=== PATIENT | male | born 1950 | race Caucasian/White ===

== ENCOUNTER 2016-12-07 09:59 | Emergency (ER) | payer MEDICARE, OTHER ==
--- NOTE | 2016-12-07 11:09 | RAD ---
Indication: Right calf pain. Duplex Doppler sonography of the deep venous system of the right lower extremity deep venous system was performed. Bilaterally the common femoral veins appear patent and compressible. Right proximal greater saphenous vein, proximal deep femoral vein, femoral vein, popliteal vein, posterior tibial veins and peroneal veins appear patent and compressible. IMPRESSION: NO EVIDENCE OF DEEP VENOUS THROMBOSIS IS IDENTIFIED.
[2016-12-07 11:21] VITALS: BP 124/71
--- NOTE | 2016-12-07 12:01 | ED ---
Lower Extremity - HPI Summary HPI Summary: Patient presents with right calf pain for two days. He got up from his chair two days ago and felt pain in his right calf. The pain improved somewhat yesterday, but he has a history of PE and worried he might have a blood clot. He does not have swelling or redness in the calf. No CP or SOB. - History of Current Complaint Chief Complaint: EDExtremityLower Stated Complaint: POSS BLOOD CLOT IN RT LEG Hx Obtained From: Patient Mechanism Of Injury: Unknown Onset of Pain: Immediate Onset/Duration: Days - 2 Severity Initially: Severe Severity Currently: Mild Pain Intensity: 0 Pain Scale Used: 0-10 Numeric Timing: Constant Location: Is Discrete @ - right upper calf Character Of Pain: Dull, Aching Associated Signs And Symptoms: Positive: Negative Aggravating Factor(s): Movement Alleviating Factor(s): Rest Able to Bear Weight: Yes - Allergies/Home Medications Allergies/Adverse Reactions: Allergies Allergy/AdvReac Type Severity Reaction Status Date / Time Simvastatin [From Zocor] Allergy Severe muscle Verified 12/07/16 10:04 aches Molds & Smuts Allergy Unknown Verified 12/07/16 10:04 Reaction Details PMH/Surg Hx/FS Hx/Imm Hx Endocrine/Hematology History: Denies: Hx Diabetes, Hx Thyroid Disease Comment Only: Hx Anticoagulant Therapy - 325 mg asa bedtime, 81mg asa am Cardiovascular History: Reports: Hx Hypercholesterolemia, Hx Hypertension Denies: Hx Pacemaker/ICD Respiratory History: Reports: Hx Asthma, Hx Pulmonary Embolism - Aug 2015, Hx Sleep Apnea, Other Respiratory Problems/Disorders - LT PLEURAL EFFUSION 07/2015/ TUBE PLACEMENT GI History: Reports: Hx Gastroesophageal Reflux Disease History: Reports: Hx Renal Disease - CYST, RT KIDNEY, Other Problems/ Disorders - cyst right kidney, prostate CA Musculoskeletal History: Reports: Hx Arthritis Sensory History: Reports: Hx Contacts or Glasses, Hx Vision Problem - near sighted, Hx Hearing Aid, Hx Hearing Problem Opthamlomology History: Reports: Hx Contacts or Glasses, Hx Vision Problem - near sighted Psychiatric History: Denies: Hx Substance Abuse - Cancer History Cancer Type, Location and Year: prostate - Surgical History Surgery Procedure, Year, and Place: Prostatectomy, 2000, . Deviated Spetum Repair. Lymph Node Removed from Left Neck. Hernia Repair. Acid Reflux Repair , SURGERY FOR PERFORATED STOMACH 2014 Hx Anesthesia Reactions: No - Immunization History Date of Tetanus Vaccine: 2011 Date of Influenza Vaccine: 2011 Infectious Disease History: No Infectious Disease History: Reports: Hx Hepatitis - Hepatitis B, Hx Shingles Denies: Traveled Outside the [place] in Last 30 Days - Family History Known Family History: Positive: Unknown - Social History Occupation: Retired Lives: With Family Alcohol Use: None Substance Use Type: Reports: None Hx Tobacco Use: No Smoking Status (MU): Former Smoker Type: Cigarettes Have You Smoked in the Last Year: Yes Review of Systems Negative: Chest Pain Negative: Shortness Of Breath Positive: Myalgia. Negative: Decreased ROM, Edema Negative: Bruising All Other Systems Reviewed And Are Negative: Yes Physical Exam Triage Information Reviewed: Yes Vital Signs On Initial Exam: Initial Vitals Temp Pulse Resp BP Pulse Ox 98.1 F 75 17 146/86 100 12/07/16 10:01 12/07/16 10:01 12/07/16 10:01 12/07/16 10:01 12/07/16 10:01 Vital Signs Reviewed: Yes Appearance: Positive: Well-Appearing, No Pain Distress, Well-Nourished Skin: Positive: Warm, Skin Color Reflects Adequate Perfusion, Dry, Soft Head/Face: Positive: Normal Head/Face Inspection Eyes: Positive: EOMI, MIGUEL, Conjunctiva Clear ENT: Positive: Hearing grossly normal Respiratory/Lung Sounds: Positive: Clear to Auscultation, Breath Sounds Present Cardiovascular: Positive: RRR Musculoskeletal: Positive: Strength/ROM Intact, Pain @ - mildly TTP right mid upper calf without enduration, erythema or warmth. Negative: Edema Left, Edema Right Neurological: Positive: Sensory/Motor Intact, Alert, Oriented to Person Place, Time, [place] Bundle Intact Distally Psychiatric: Positive: Affect/Mood Appropriate AVPU Assessment: Alert - [place] Coma Scale Coma Scale Total: 15 Diagnostics - Vital Signs Vital Signs Temp Pulse Resp BP Pulse Ox 12/07/16 11:00 60 18 124/71 96 12/07/16 10:33 64 18 96 12/07/16 10:32 140/77 12/07/16 10:01 98.1 F 75 17 146/86 100 - Laboratory Lab Statement: Any lab studies that have been ordered have been reviewed, and results considered in the medical decision making process. - Ultrasound No standard instances Ultrasound Interpretation: No Acute Changes Ultrasound Interpretation Completed By: Radiologist Lower Extremity Course/Dx - Diagnoses Differential Diagnosis/HQI/PQRI: Positive: Arthritis, Bursitis, Cellulitis, Compartment Syndrome, Contusion, DVT, Gout, Sprain, Strain Provider Diagnoses: Strain of calf muscle Discharge - Discharge Plan Condition: Stable Disposition: HOME Patient Education Materials: Muscle Strain (ED) Referrals: Pascual Moyer MD [Primary Care Provider] - Additional Instructions: Please rest and only increase your activities slowly. If you have pain, you should back off of that activity. You can use Tylenol and heat to help with pain. Follow-up with your primary care provider if your symptoms persist or return to the emergency department if your symptoms worsen.
== END 2016-12-07 11:28 | disposition home or self-care (01) ==
LOC: ED 09:59
DX: S86.911A Strain of unspecified muscle(s) and tendon(s) at lower leg level, right leg, initial encounter (principal); X58.XXXA Exposure to other specified factors, initial encounter; Y93.9 Activity, unspecified; Y92.9 Unspecified place or not applicable; Y99.9 Unspecified external cause status
CPT/HCPCS: 99283

== ENCOUNTER 2017-01-29 00:29 | Emergency (ER) | payer MEDICARE, OTHER ==
[2017-01-29] MEDS ORDERED: Albuterol/Ipratropium NEB.SOL* Albuterol 2.5 MG/Ipratropium 0.5 MG 3 ML INH ONE (01:16)
--- NOTE | 2017-01-29 01:40 | ED ---
Kandi Zimmerman Erika, scribed for Barry Hussein MD on 01/29/17 at 0135 . Asthma - HPI Summary HPI Summary: Patient is a 66-year-old male presenting to the ED with a CC of SOB. Patient reports that he has been feeling SOB and chest tightness all day. He states symptoms worsened at 23:00, so he used a nebulizer treatment, which partially alleviated symptoms. Patient states he was not coughing earlier today but did start coughing since arrival to the ED. Patient denies fever. He states that he recently switched to Breo from Advair recently. He reports the most recent asthma attack that led to him coming to the ED was last year. Pt is followed by Dr. Baez for his asthma. - History of Current Complaint Chief Complaint: EDAsthma Stated Complaint: SOB Time Seen by Provider: 01/29/17 01:08 Hx Obtained From: Patient Onset/Duration: Gradual Onset, Lasting Hours, Still Present, Worse Since - 23:00 Timing: Constant Initial Severity: Mild Current Severity: Moderate Pain Intensity: 3 Pain Scale Used: 0-10 Numeric Alleviating Symptoms: Inhalers/Nebulizers - Allergy/Home Medications Allergies/Adverse Reactions: Allergies Allergy/AdvReac Type Severity Reaction Status Date / Time Simvastatin [From Zocor] Allergy Severe muscle Verified 12/07/16 10:04 aches Molds & Smuts Allergy Unknown Verified 12/07/16 10:04 Reaction Details PMH/Surg Hx/FS Hx/Imm Hx Endocrine/Hematology History: Denies: Hx Diabetes, Hx Thyroid Disease Comment Only: Hx Anticoagulant Therapy - 325 mg asa bedtime, 81mg asa am Cardiovascular History: Reports: Hx Hypercholesterolemia, Hx Hypertension Denies: Hx Pacemaker/ICD Respiratory History: Reports: Hx Asthma, Hx Pulmonary Embolism - Aug 2015, Hx Sleep Apnea, Other Respiratory Problems/Disorders - LT PLEURAL EFFUSION 07/2015/ TUBE PLACEMENT GI History: Reports: Hx Gastroesophageal Reflux Disease History: Reports: Hx Renal Disease - CYST, RT KIDNEY, Other Problems/ Disorders - cyst right kidney, prostate CA Musculoskeletal History: Reports: Hx Arthritis Sensory History: Reports: Hx Contacts or Glasses, Hx Vision Problem - near sighted, Hx Hearing Aid, Hx Hearing Problem Opthamlomology History: Reports: Hx Contacts or Glasses, Hx Vision Problem - near sighted Psychiatric History: Denies: Hx Substance Abuse - Cancer History Cancer Type, Location and Year: prostate - Surgical History Surgery Procedure, Year, and Place: Prostatectomy, 2000, [facility]. Deviated Spetum Repair. Lymph Node Removed from Left Neck. Hernia Repair. Acid Reflux Repair , SURGERY FOR PERFORATED STOMACH 2014 Hx Anesthesia Reactions: No - Immunization History Date of Tetanus Vaccine: 2011 Date of Influenza Vaccine: 2011 Infectious Disease History: No Infectious Disease History: Reports: Hx Hepatitis - Hepatitis B, Hx Shingles Denies: Traveled Outside the [place] in Last 30 Days - Family History Known Family History: Positive: Cardiac Disease, Other - Brain CA - Social History Occupation: Employed Full-time Alcohol Use: None Hx Substance Use: No Substance Use Type: Reports: None Review of Systems Negative: Fever Cardiovascular: Other - chest tightness Positive: Shortness Of Breath, Cough All Other Systems Reviewed And Are Negative: Yes Physical Exam Triage Information Reviewed: Yes Vital Signs On Initial Exam: Initial Vitals Temp Pulse Resp BP Pulse Ox 97.8 F 62 18 148/80 100 01/29/17 00:37 01/29/17 00:37 01/29/17 00:37 01/29/17 00:37 01/29/17 00:37 Vital Signs Reviewed: Yes Appearance: Positive: Well-Appearing, No Pain Distress Skin: Positive: Warm Head/Face: Positive: Normal Head/Face Inspection Eyes: Positive: MIGUEL ENT: Positive: Hearing grossly normal Neck: Positive: Supple Respiratory/Lung Sounds: Positive: Wheezes - few scattered exp wheezes Cardiovascular: Positive: RRR Abdomen Description: Positive: Nontender, Soft Bowel Sounds: Positive: Present Musculoskeletal: Positive: Strength/ROM Intact Neurological: Positive: Sensory/Motor Intact, Alert, Oriented to Person Place, Time Psychiatric: Positive: Affect/Mood Appropriate - [place] Coma Scale Coma Scale Total: 15 Diagnostics - Vital Signs Vital Signs Temp Pulse Resp BP Pulse Ox 01/29/17 00:37 97.8 F 62 18 148/80 100 - Laboratory Lab Statement: Any lab studies that have been ordered have been reviewed, and results considered in the medical decision making process. Asthma Course/Dx - Course Assessment/Plan: A 66 y/o M presents to the ED with a CC of SOB. Patient has a diagnosis of asthma. Lung sounds are good on exam. Patient is given a duoneb and is discharged home with follow up from pulmonology. - Diagnoses Provider Diagnoses: Asthma Discharge - Discharge Plan Condition: Stable Disposition: HOME Patient Education Materials: Asthma (ED) Referrals: Pascual Moyer MD [Primary Care Provider] - Ariane Lopez MD [Medical Doctor] - Additional Instructions: Please follow up with pulmonology. The documentation as recorded by the Kandi barbosa Erika accurately reflects the service I personally performed and the decisions made by me, Barry Hussein MD.
[2017-01-29 01:52] VITALS: BP 129/68
== END 2017-01-29 01:46 | disposition home or self-care (01) ==
LOC: ED 00:29
DX: J45.909 Unspecified asthma, uncomplicated (principal); R06.02 Shortness of breath
CPT/HCPCS: 94640; 94760; 99282; A9270-GY

== ENCOUNTER 2017-11-26 14:39 | Emergency (ER) | payer MEDICARE, OTHER ==
--- NOTE | 2017-11-26 16:56 | RAD ---
INDICATION: Pain and swelling. COMPARISON: September 05, 2015 TECHNIQUE: Duplex interrogation of the Lowerextremity was performed. FINDINGS: Deep veins: The common femoral, great saphenous, profunda femoris, proximal, mid, and distal deep femoral, popliteal, posterior tibial, and peroneal veins are patent. There is normal compressibility, augmentation, and phasic flow. Superficial veins: There are no findings of superficial thrombophlebitis. Popliteal fossa:There is no evidence of a popliteal cyst. Soft tissues:There are no soft tissue abnormalities. IMPRESSION: Normal examination. No evidence of deep venous thrombosis
--- NOTE | 2017-11-26 17:13 | ED ---
Lower Extremity - HPI Summary HPI Summary: Patient presents with chief complaint of a "funny feeling" in the left posterior upper leg. He was sent here by urgent care to rule out blood clot. History of PE 2 years ago which was spontaneous. He denies any travel, denies smoking. Recently diagnosed with pneumonia last week and has been completing his course of antibiotics. He states this week from being ill he has been sitting more recently and feels it may just be a muscle strain. Denies any numbness or tingling. Denies any erythema or warmth to the area. Denies calf pain. He is ambulating well. Denies any other complaints at this time. He is currently not on blood thinners and is unable to take ibuprofen or aspirin due to his medical history.Past medical history includes hypertension, asthma, pleural effusion and patient takes lisinopril 40 mg daily. Described as aching , 2 out of 10 and worse with sitting. Alleviated with standing. Pneumonia symptoms have improved and he denies any chest discomfort or chest pain worse with inspiration. - History of Current Complaint Chief Complaint: EDExtremityLower Stated Complaint: POSS BLOOD CLOT LT LOWER EXTREMITY Time Seen by Provider: 11/26/17 15:51 Hx Obtained From: Patient Onset of Pain: Immediate Onset/Duration: Hours Severity Initially: Mild Severity Currently: Mild Pain Intensity: 1 Pain Scale Used: 0-10 Numeric Timing: Constant Location: Is Discrete @ - Left upper posterior leg Character Of Pain: Aching Aggravating Factor(s): Other - Sitting - Risk Factors Gout Risk Factors: Negative DVT Risk Factors: Negative Septic Arthritis Risk Factor: Negative - Allergies/Home Medications Allergies/Adverse Reactions: Allergies Allergy/AdvReac Type Severity Reaction Status Date / Time Simvastatin [From Zocor] Allergy Severe muscle Verified 09/03/17 12:16 aches Molds & Smuts Allergy Unknown Verified 09/03/17 12:16 Reaction Details PMH/Surg Hx/FS Hx/Imm Hx Previously Healthy: Yes Endocrine/Hematology History: Denies: Hx Diabetes, Hx Thyroid Disease Comment Only: Hx Anticoagulant Therapy - 325 mg asa bedtime, 81mg asa am Cardiovascular History: Reports: Hx Hypercholesterolemia, Hx Hypertension Denies: Hx Pacemaker/ICD Respiratory History: Reports: Hx Asthma, Hx Pulmonary Embolism - Aug 2015, Hx Sleep Apnea, Other Respiratory Problems/Disorders - LT PLEURAL EFFUSION 07/2015/ TUBE PLACEMENT GI History: Reports: Hx Gastroesophageal Reflux Disease History: Reports: Hx Renal Disease - CYST, RT KIDNEY, Other Problems/ Disorders - cyst right kidney, prostate CA Musculoskeletal History: Reports: Hx Arthritis Sensory History: Reports: Hx Contacts or Glasses, Hx Vision Problem - near sighted, Hx Hearing Aid - DOESN'T WEAR, Hx Hearing Problem Opthamlomology History: Reports: Hx Contacts or Glasses, Hx Vision Problem - near sighted Psychiatric History: Denies: Hx Panic Disorder, Hx Substance Abuse - Cancer History Cancer Type, Location and Year: PROSTATE Hx Chemotherapy: No Hx Radiation Therapy: No - Surgical History Surgery Procedure, Year, and Place: Prostatectomy, 2000, [facility]. Deviated Spetum Repair. Lymph Node Removed from Left Neck. Hernia Repair AND MALCOM FUNDOPLICATION - 2005. SURGERY FOR PERFORATED STOMACH /ULCERATIVE- 2014. Lt THUMB - LACERATED FROM SAW - REATTACHED TENDON Hx Anesthesia Reactions: No - Immunization History Date of Tetanus Vaccine: 2011 Date of Influenza Vaccine: 2017 Hx Pertussis Vaccination: No Immunizations Up to Date: Yes Infectious Disease History: No Infectious Disease History: Reports: Hx Hepatitis - Hepatitis B, Hx Shingles Denies: Traveled Outside the [place] in Last 30 Days - Family History Known Family History: Positive: Unknown, Cardiac Disease, Other - Brain CA - Social History Occupation: Unemployed Lives: With Family Alcohol Use: None Hx Substance Use: No Substance Use Type: Reports: None Hx Tobacco Use: No Smoking Status (MU): Never Smoked Tobacco Type: Cigarettes Have You Smoked in the Last Year: Yes Review of Systems Constitutional: Negative Negative: Fever, Chills, Fatigue, Skin Diaphoresis Eyes: Negative Cardiovascular: Negative Positive: no symptoms reported, see HPI Positive: Myalgia. Negative: Decreased ROM, Edema Skin: Negative Neurological: Negative Psychological: Normal All Other Systems Reviewed And Are Negative: Yes Physical Exam Triage Information Reviewed: Yes Vital Signs On Initial Exam: Initial Vitals Temp Pulse Resp BP Pulse Ox 98.8 F 72 19 151/90 94 11/26/17 14:50 11/26/17 14:50 11/26/17 14:50 11/26/17 14:50 11/26/17 14:50 Vital Signs Reviewed: Yes Appearance: Positive: Well-Appearing, Well-Nourished Skin: Positive: Warm, Skin Color Reflects Adequate Perfusion Head/Face: Positive: Normal Head/Face Inspection Eyes: Positive: EOMI, MIGUEL, Conjunctiva Clear Neck: Positive: Supple, No Lymphadenopathy Respiratory/Lung Sounds: Positive: Clear to Auscultation Cardiovascular: Positive: Normal, RRR, Pulses are Symmetrical in both Upper and Lower Extremities Musculoskeletal: Positive: Normal - No edema present bilaterally in the extremities, Pain @ - Left posterior upper thigh. Negative: Shakira Sign Left, Shakira Sign Right, Edema Left, Edema Right Neurological: Positive: Speech Normal Psychiatric: Positive: Affect/Mood Appropriate AVPU Assessment: Alert Procedures - Ultrasound Ultrasound: normal Diagnostics - Vital Signs Vital Signs Temp Pulse Resp BP Pulse Ox 11/26/17 16:13 99.3 F 71 20 157/99 99 11/26/17 14:50 98.8 F 72 19 151/90 94 - Laboratory Lab Statement: Any lab studies that have been ordered have been reviewed, and results considered in the medical decision making process. - Ultrasound No standard instances Ultrasound Interpretation: No Acute Changes Ultrasound Interpretation Completed By: Radiologist - No evidence of DVT Lower Extremity Course/Dx - Course Course Of Treatment: During the course of treatment the patient is evaluated for a left posterior upper leg DVT versus muscle strain. Ultrasound obtained and negative for any DVT or other findings. There is no redness or warmth to the area. There is pinpoint tenderness to a small area on the left posterior upper leg without palpable nodules. Likely due to muscle pain from excess sitting this week. He is following up with Dr. Moyer, his PCP on Monday and will have the area reevaluated. He is to return for any worsening symptoms. Patient understands this plan, and voices no concerns at this time. He understands the return precautions given to him. Wells criteria shows low risk for PE. Homans sign negative bilaterally. - Diagnoses Provider Diagnoses: Muscle strain Discharge - Discharge Plan Condition: Stable Disposition: HOME Patient Education Materials: Musculoskeletal Pain (ED) Referrals: Pascual Moyer MD [Primary Care Provider] - Additional Instructions: Tylenol 650 mg 3 times daily Moist heat to the area Follow-up with Dr. Moyer on Monday as scheduled Images - Images Full Body (No Head): 1 - Pain on deep palpation, no nodules or other lesions identified, no erythema or warmth
[2017-11-26 17:14] VITALS: BP 00/00
== END 2017-11-26 17:13 | disposition home or self-care (01) ==
LOC: ED 14:39
DX: S76.912A Strain of unspecified muscles, fascia and tendons at thigh level, left thigh, initial encounter (principal); X58.XXXA Exposure to other specified factors, initial encounter; Y92.9 Unspecified place or not applicable
CPT/HCPCS: 99282

== ENCOUNTER 2017-12-01 09:32 | Emergency (ER) | payer MEDICARE, OTHER ==
[2017-12-01 12:20] LABS: ABS Basophils 0 10^3/ul (0-0.2); ABS Eosinophils 0 10^3/ul (0-0.6); ABS Lymphocytes 0.9 10^3/ul (1.0-4.8); ABS Monocytes 0.7 10^3/ul (0-0.8); ABS Neutrophils 5.2 10^3/ul (1.5-7.7); ABS Nucleated RBC 0 10^3/ul; Eosinophil % 0.6 % (0-6); Hematocrit 41 % (42-52); Hemoglobin 14.1 g/dl (14.0-18.0); Lymphocyte % 13.6 % (25-47); Mean Corpuscular HGB Conc 34 g/dl (31-36); Mean Corpuscular Hemoglobin 32 pg (27-31); Mean Corpuscular Volume 92 fL (80-94); Mean Platelet Volume 8 um3 (7.4-10.4); Nucleated Red Blood Cells % 0; Platelet Count 258 10^3/ul (150-450); Red Blood Count 4.46 10^6/ul (4.0-5.4); Red Cell Distribution Width 13 % (10.5-15); White Blood Count 6.9 10^3/ul (3.5-10.8)
[2017-12-01 12:40] LABS: Urine Appearance Clear; Urine Blood Negative (Negative); Urine Color Straw; Urine Ketones Negative (Negative); Urine Protein Negative (Negative); Urine Specific Gravity 1.005 (1.010-1.030); Urine Urobilinogen Negative (Negative)
[2017-12-01 12:44] LABS: INR 0.98 (0.77-1.02)
--- NOTE | 2017-12-01 13:12 | RAD ---
Indication: Cough, fever. Single frontal view of the chest performed at 1300 was reviewed. Comparison is made with previous exam dated February 19, 2016. Left pleural effusion with left basilar atelectasis is noted. Right lung field is clear. Left base atelectasis is noted. IMPRESSION: SMALL LEFT PLEURAL EFFUSION WITH LEFT BASILAR ATELECTASIS ALTHOUGH SIMILAR TO THAT FOUND ON FEBRUARY 19, 2016.
[2017-12-01] MEDS ORDERED: Iohexol 350* (CONTRAST) 500 ML MDV IV ONE (13:48)
--- NOTE | 2017-12-01 14:42 | RAD ---
INDICATION: Fever and cough COMPARISON: CTA chest October 08, 2015 that revealed nonocclusive PE in the right lower lobe. TECHNIQUE: Axial source images were acquired following the administration of 69 mL Omnipaque [address] angiographic technique. Coronal and sagittal reconstructed images were constructed and reviewed. FINDINGS: There there are no filling defects in the pulmonary arteries to indicate acute pulmonary embolic disease. There are no focal infiltrates or effusions. There is pleural-based linear density at the left lung base corresponding to pneumonia seen on the previous CT examination. This could represent atelectasis or scarring. The heart is normal in size. There is no evidence of pericardial effusion. There is no evidence of aortic aneurysm or dissection. There is no mediastinal, hilar, or axillary lymphadenopathy. Again seen is an 8 mm focal hypodensity in the right lobe of the thyroid. Again seen are low-attenuation lesions at T5, T6, T10 and T11, unchanged in the prior CT examination and most consistent with vertebral body hemangiomas. Limited views of the upper abdomen show no abnormalities. IMPRESSION: 1. No CT of evidence of pulmonary embolism. 2. Chronic and degenerative changes described in the body the report.
[2017-12-01] MEDS ORDERED: Albuterol/Ipratropium NEB.SOL* Albuterol 2.5 MG/Ipratropium 0.5 MG 3 ML INH ONE (14:51)
[2017-12-01] MEDS ORDERED: Ketorolac INJ* 30 MG/ML 1 ML VIAL IV PUSH ONE (15:02)
[2017-12-01] MEDS ORDERED: methylPREDNISolone 125 MG* 2 ML VIAL IV ONE (15:02)
[2017-12-01] MEDS ORDERED: Oseltamivir CAP* 75 MG CAP PO ONE (15:02)
[2017-12-01 16:23] VITALS: BP 114/65
--- NOTE | 2017-12-03 12:45 | ED ---
Jesus Zimmerman Julia, scribed for Jesus Bonilla MD on 12/01/17 at 1140 . Respiratory - HPI Summary HPI Summary: This patient is a 67 year old M presenting to [facility] with a chief complaint of worsening general malaise and SOB since last week when he was treated for PNA. Patient reports fatigue, productive cough (white phlegm), sore throat, chills, body aches and lower back pain (worse on R). Patient denies pain with breathing , fever, vomiting, diarrhea, and CP. The patient rates the pain 2/10 in severity. Pt states he was dx with PNA by Dr. Moyer last week and was given a Z-pac. He states current symptoms are similar to PNA. Pt has hx of PE and is not taking blood thinners. - History of Current Complaint Chief Complaint: EDGeneral Stated Complaint: FEVER, COUGH Hx Obtained From: Patient Onset/Duration: Lasting Weeks Timing: Constant Initial Severity: Worse Since: - last week Pain Intensity: 2 Character: Cough (Productive) Sputum Color: White Associated Signs and Symptoms: SOB Related History: Similar Episode/Dx as - PNA - Allergy/Home Medications Allergies/Adverse Reactions: Allergies Allergy/AdvReac Type Severity Reaction Status Date / Time MS Simvastatin [From Zocor] Allergy Severe muscle Verified 09/03/17 12:16 aches MS Molds & Smuts Allergy Unknown Verified 09/03/17 12:16 [Molds & Smuts] Reaction Details PMH/Surg Hx/FS Hx/Imm Hx Endocrine/Hematology History: Denies: Hx Diabetes, Hx Thyroid Disease Comment Only: Hx Anticoagulant Therapy - 325 mg asa bedtime, 81mg asa am Cardiovascular History: Reports: Hx Hypercholesterolemia, Hx Hypertension Denies: Hx Pacemaker/ICD Respiratory History: Reports: Hx Asthma, Hx Pulmonary Embolism - Aug 2015, Hx Sleep Apnea, Other Respiratory Problems/Disorders - LT PLEURAL EFFUSION 07/2015/ TUBE PLACEMENT GI History: Reports: Hx Gastroesophageal Reflux Disease History: Reports: Hx Renal Disease - CYST, RT KIDNEY, Other Problems/ Disorders - cyst right kidney, prostate CA Musculoskeletal History: Reports: Hx Arthritis Sensory History: Reports: Hx Contacts or Glasses, Hx Vision Problem - near sighted, Hx Hearing Aid - DOESN'T WEAR, Hx Hearing Problem Opthamlomology History: Reports: Hx Contacts or Glasses, Hx Vision Problem - near sighted Psychiatric History: Denies: Hx Panic Disorder, Hx Substance Abuse - Cancer History Cancer Type, Location and Year: PROSTATE Hx Chemotherapy: No Hx Radiation Therapy: No - Surgical History Surgery Procedure, Year, and Place: Prostatectomy, 2000, [facility]. Deviated Spetum Repair. Lymph Node Removed from Left Neck. Hernia Repair AND MALCOM FUNDOPLICATION - 2005. SURGERY FOR PERFORATED STOMACH /ULCERATIVE- 2014. Lt THUMB - LACERATED FROM SAW - REATTACHED TENDON Hx Anesthesia Reactions: No - Immunization History Date of Tetanus Vaccine: 2011 Date of Influenza Vaccine: 06/15 Immunizations Up to Date: Yes Infectious Disease History: Yes Infectious Disease History: Reports: Hx Hepatitis - Hepatitis B, Hx Shingles Denies: Traveled Outside the [place] in Last 30 Days - Family History Known Family History: Positive: Cardiac Disease, Other - Brain CA - Social History Alcohol Use: None Hx Substance Use: No Substance Use Type: Reports: None Hx Tobacco Use: No Smoking Status (MU): Never Smoked Tobacco Type: Cigarettes Have You Smoked in the Last Year: Yes Review of Systems Positive: Chills, Fatigue, Other - body aches. Negative: Fever Negative: Erythema Positive: Sore Throat Negative: Chest Pain Respiratory: Negative - pain with breath Positive: Shortness Of Breath, Cough - productive Negative: Abdominal Pain, Vomiting, Diarrhea Negative: dysuria, hematuria Positive: Myalgia - low back pain. Negative: Edema Negative: Rash Neurological: Negative - dizziness All Other Systems Reviewed And Are Negative: Yes Physical Exam - Summary Physical Exam Summary: Constitutional: Well-developed, Well-nourished, Alert. (-) Distressed Skin: Warm, Dry HENT: Normocephalic; Atraumatic Eyes: Conjunctiva normal Neck: Musculoskeletal ROM normal neck. (-) JVD, (-) Stridor, (-) Tracheal deviation Cardio: Rhythm regular, rate normal, Heart sounds normal; Intact distal pulses; The pedal pulses are 2+ and symmetric. Radial pulses are 2+ and symmetric. (-) Murmur Pulmonary/Chest wall: Effort normal. (-) Respiratory distress, (-) Wheezes, (-) Rales, Lung sounds are slightly diminished Abd: Soft, (-) Tenderness, (-) Distension, (-) Guarding, (-) Rebound Musculoskeletal: (-) Edema Lymph: (-) Cervical adenopathy Neuro: Alert, Oriented x3 Psych: Mood and affect Normal Triage Information Reviewed: Yes Vital Signs On Initial Exam: Initial Vitals Temp Pulse Resp BP Pulse Ox 98.3 F 94 20 142/86 96 12/01/17 09:39 12/01/17 09:39 12/01/17 09:39 12/01/17 09:39 12/01/17 09:39 Vital Signs Reviewed: Yes Diagnostics - Vital Signs Vital Signs Temp Pulse Resp BP Pulse Ox 12/01/17 11:10 70 21 97 12/01/17 11:08 130/87 12/01/17 09:39 98.3 F 94 20 142/86 96 - Laboratory Result Diagrams: 12/01/17 12:10 12/01/17 12:10 Lab Statement: Any lab studies that have been ordered have been reviewed, and results considered in the medical decision making process. - Radiology CXR Radiology Interpretation Completed By: Radiologist - SMALL LEFT PLEURAL EFFUSION WITH LEFT BASILAR ATELECTASIS ALTHOUGH SIMILAR TO THAT FOUND ON FEBRUARY 19, 2016. ED Physician has reviewed this report. - CT Chest/Thorax CT Interpretation Completed By: Radiologist - 1. No CT of evidence of pulmonary embolism. 2. Chronic and degenerative changes described in the body the report. ED Physician has reviewed this report. - EKG 1453 Cardiac Rate: NL - at 72 BPM EKG Rhythm: Sinus Rhythm ST Segment: Normal EKG Interpretation: no STEMI 1544 Cardiac Rate: NL - at 86 BPM EKG Rhythm: Sinus Rhythm EKG Interpretation: no STEMI Re-Evaluation - Re-Evaluation 1 Re-Evaluation Time: 15:00 Change: Unchanged Disposition - Course Course Of Treatment: Pt presents with worsening general malaise and SOB since last week when he was treated for PNA. Patient reports fatigue, productive cough (white phlegm), sore throat, chills, body aches and lower back pain ( worse on R). Pt has hx of PE. Influenza testing is negative. Bloodwork and UA are unremarkable. EKG, CXR, and Chest CT are of no acute concern. Pt given nebulizer tx, Tamiflu, and Toradol. Pt is stable and discharged. - Diagnoses Provider Diagnoses: Bronchitis, Flu-like symptoms Discharge - Discharge Plan Condition: Stable Disposition: HOME Prescriptions: Albuterol HFA INHALER* [Ventolin HFA Inhaler*] 1 - 2 puff INH Q6H PRN #1 mdi PRN Reason: Cough Oseltamivir CAP* [Tamiflu CAP*] 75 mg PO BID #14 cap predniSONE TAB* [Deltasone TAB*] 50 mg PO DAILY #5 tab Patient Education Materials: Acute Bronchitis (ED) Referrals: Pascual Moyer MD [Primary Care Provider] - 2 Days Additional Instructions: RETURN TO THE EMERGENCY DEPARTMENT FOR CHANGING OR WORSENING SYMPTOMS. Follow up with your primary care provider within 2 days The documentation as recorded by the Jesus barbosa Julia accurately reflects the service I personally performed and the decisions made by Chad gleason Jerry, MD.
== END 2017-12-01 16:23 | disposition home or self-care (01) ==
LOC: ED 09:32
DX: J11.1 Influenza due to unidentified influenza virus with other respiratory manifestations (principal); I10 Essential (primary) hypertension; Z86.711 Personal history of pulmonary embolism; Z79.01 Long term (current) use of anticoagulants; E78.00 Pure hypercholesterolemia, unspecified; Z79.82 Long term (current) use of aspirin; K21.9 Gastro-esophageal reflux disease without esophagitis; Z85.46 Personal history of malignant neoplasm of prostate; Z87.891 Personal history of nicotine dependence
CPT/HCPCS: 36415; 71045; 71275; 80053; 81003; 83605; 84484; 85025; 85610; 85730; 87040; 87502; 93005; 94640; 96374; 96375; 99283; A9270-GY; J1885; J2930; Q9967

== ENCOUNTER 2018-01-19 18:25 | Emergency (ER) | payer MEDICARE, OTHER ==
--- NOTE | 2018-01-19 19:18 | RAD ---
HISTORY: Chest pain COMPARISONS: December 01, 2014 VIEWS: 4: Frontal dual-energy and lateral views of the chest. FINDINGS: CARDIOMEDIASTINAL SILHOUETTE: The cardiomediastinal silhouette is normal. RUTHIE: The ruthie are normal. PLEURA: There is a stable small left pleural effusion versus chronic pleural thickening. There is eventration of left hemidiaphragm. LUNG PARENCHYMA: There is hyperinflation with flattening of the diaphragm and expansion of the AP diameter of the chest. ABDOMEN: The upper abdomen is clear. There is no subphrenic gas. BONES AND SOFT TISSUES: No bone or soft tissue abnormalities are noted. OTHER: None. IMPRESSION: 1. HYPERINFLATION. 2. STABLE SMALL LEFT PLEURAL EFFUSION VERSUS CHRONIC PLEURAL THICKENING.
[2018-01-19 19:56] LABS: ABS Basophils 0.1 10^3/ul (0-0.2); ABS Eosinophils 0.1 10^3/ul (0-0.6); ABS Lymphocytes 1.6 10^3/ul (1.0-4.8); ABS Monocytes 0.5 10^3/ul (0-0.8); ABS Neutrophils 6.1 10^3/ul (1.5-7.7); ABS Nucleated RBC 0 10^3/ul; Eosinophil % 0.8 % (0-6); Hematocrit 41 % (42-52); Hemoglobin 14.3 g/dl (14.0-18.0); Lymphocyte % 19.6 % (25-47); Mean Corpuscular HGB Conc 35 g/dl (31-36); Mean Corpuscular Hemoglobin 32 pg (27-31); Mean Corpuscular Volume 92 fL (80-94); Mean Platelet Volume 8.2 um3 (7.4-10.4); Nucleated Red Blood Cells % 0.1; Platelet Count 219 10^3/ul (150-450); Red Blood Count 4.51 10^6/ul (4.0-5.4); Red Cell Distribution Width 13 % (10.5-15); White Blood Count 8.4 10^3/ul (3.5-10.8)
[2018-01-19 20:05] LABS: INR 0.89 (0.77-1.02)
[2018-01-19 20:15] LABS: EGFR Non-African American 69.3 (>60)
[2018-01-19] MEDS ORDERED: Methocarbamol TAB* 500 MG PO ONE (20:39)
[2018-01-19] MEDS ORDERED: traMADol TAB* 50 MG PO ONE (20:39)
--- NOTE | 2018-01-19 21:30 | RAD ---
HISTORY: Back pain COMPARISONS: CT chest dated December 01, 2017 TECHNIQUE: Multiple contiguous axial CT scans were obtained of the thoracic spine without intravenous contrast, with coronal and sagittal multiplanar reformations. FINDINGS: SPINAL CANAL: Evaluation of the central canal is limited on CT technique; however, there is no obvious canalicular mass or epidural hemorrhage. ALIGNMENT: The alignment is normal. VERTEBRAL BODIES: There is diffuse osteopenia. There are hemangiomas of T5, T6 and T10 and T11. The vertebral bodies are preserved in height. There is multilevel anterolateral marginal osteophyte formation. JOINTS: There is osteoarthritis of the costovertebral articulations. MUSCULATURE: Unremarkable INTERVERTEBRAL DISCS: There is diffuse loss of intervertebral disc height throughout the spine. AXIAL IMAGES: There is no osseous central canal stenosis or neuroforaminal narrowing. SOFT TISSUES: The visualized soft tissues of the chest and abdomen are unremarkable. OTHER: None IMPRESSION: 1. OSTEOPENIA. 2. DEGENERATIVE DISC DISEASE AND OSTEOARTHRITIS. 3. THERE IS NO OSSEOUS NEURAL FORAMINAL NARROWING OR CENTRAL CANAL STENOSIS..
[2018-01-19 22:40] VITALS: BP 104/65
--- NOTE | 2018-01-20 20:37 | ED ---
Alexis Zimmerman Sixian, scribed for Ben Yang MD on 01/19/18 at 2041 . Back Pain - HPI Summary HPI Summary: This patient is a 67 year old M presenting to ED with a chief complaint of back pain since 4 days ago. The CC is described as pain radiating down his left arm, each spasm of pain lasting for a few minutes. The patient rates the pain 6/10 in severity. Symptoms aggravated and alleviated by nothing. Pt denies any new injury or trauma to his upper back. Pt denies any chest paain or SOB. - History of Current Complaint Chief Complaint: EDChestWallPain Stated Complaint: BACK AND LT ARM PAIN Time Seen by Provider: 01/19/18 20:28 Hx Obtained From: Patient Onset/Duration: Gradual Onset, Lasting Days, Still Present Onset/Duration: Started Days Ago, Still Present Timing: Constant, Lasting Days Back Pain Location: Radiates To - left arm Severity Currently: Moderate Pain Intensity: 4 Pain Scale Used: 0-10 Numeric Aggravating Symptom(s): Nothing Alleviating Symptom(s): Nothing Associated Signs And Symptoms: Positive: Other - Patient reports SOB due to chronic asthma. - Allergies/Home Medications Allergies/Adverse Reactions: Allergies Allergy/AdvReac Type Severity Reaction Status Date / Time mold Allergy Unknown Verified 12/28/17 13:19 Reaction Details Zocor Allergy Unknown Uncoded 12/28/17 13:19 Reaction Details PMH/Surg Hx/FS Hx/Imm Hx Endocrine/Hematology History: Denies: Hx Diabetes, Hx Thyroid Disease Comment Only: Hx Anticoagulant Therapy - 325 mg asa bedtime, 81mg asa am Cardiovascular History: Reports: Hx Hypercholesterolemia, Hx Hypertension Denies: Hx Pacemaker/ICD Respiratory History: Reports: Hx Asthma, Hx Pulmonary Embolism - Aug 2015, Hx Sleep Apnea, Other Respiratory Problems/Disorders - LT PLEURAL EFFUSION 07/2015/ TUBE PLACEMENT GI History: Reports: Hx Gastroesophageal Reflux Disease History: Reports: Hx Renal Disease - CYST, RT KIDNEY, Other Problems/ Disorders - cyst right kidney, prostate CA Musculoskeletal History: Reports: Hx Arthritis Sensory History: Reports: Hx Contacts or Glasses, Hx Vision Problem - near sighted, Hx Hearing Aid - DOESN'T WEAR, Hx Hearing Problem Opthamlomology History: Reports: Hx Contacts or Glasses, Hx Vision Problem - near sighted Psychiatric History: Denies: Hx Panic Disorder, Hx Substance Abuse - Cancer History Cancer Type, Location and Year: PROSTATE Hx Chemotherapy: No Hx Radiation Therapy: No - Surgical History Surgery Procedure, Year, and Place: Prostatectomy, 2000, [facility]. Deviated Spetum Repair. Lymph Node Removed from Left Neck. Hernia Repair AND MALCOM FUNDOPLICATION - 2005. SURGERY FOR PERFORATED STOMACH /ULCERATIVE- 2014. Lt THUMB - LACERATED FROM SAW - REATTACHED TENDON Hx Anesthesia Reactions: No - Immunization History Date of Tetanus Vaccine: 2011 Date of Influenza Vaccine: 06/15 Infectious Disease History: No Infectious Disease History: Reports: Hx Hepatitis - Hepatitis B, Hx Shingles Denies: Traveled Outside the [place] in Last 30 Days - Family History Known Family History: Positive: Unknown, Cardiac Disease, Other - Brain CA - Social History Alcohol Use: None Hx Substance Use: No Substance Use Type: Reports: None Hx Tobacco Use: No Smoking Status (MU): Never Smoked Tobacco Type: Cigarettes Have You Smoked in the Last Year: Yes Review of Systems Positive: Other - SOB due to chronic asthma. Positive: Other - back pain radiating to left arm All Other Systems Reviewed And Are Negative: Yes Physical Exam - Summary Physical Exam Summary: Appearance: Well-appearing, no distress, Well-nourished Skin: Warm, color reflects adequate perfusion Head: Normal Head/Face inspection Eyes: Conjunctiva clear ENT: Normal inspection Neck/Back: Supple, no nodes, no JVD. Mild tenderness to T1-2, mild swelling, no erythema, 5/5 bilateral UE strength, no cervical spine tenderness Respiratory: Lungs clear, Normal breath sounds, no respiratory distress Cardio: RRR, No murmur, pulses normal, brisk capillary refill Abdomen: soft, nontender, no guarding, no rebound Bowel sounds: present Musculoskeletal: Strength Intact/ ROM intact. No calf tenderness. No edema. Neuro: Alert, muscle tone normal, facial symmetry, speech normal, sensory/motor intact Psychological: Normal Triage Information Reviewed: Yes Vital Signs On Initial Exam: Initial Vitals Temp Pulse Resp BP Pulse Ox 98.1 F 78 16 181/99 99 01/19/18 18:27 01/19/18 18:27 01/19/18 18:27 01/19/18 18:27 01/19/18 18:27 Vital Signs Reviewed: Yes Diagnostics - Vital Signs Vital Signs Temp Pulse Resp BP Pulse Ox 01/19/18 20:23 98.2 F 67 18 146/90 96 01/19/18 18:27 98.1 F 78 16 181/99 99 - Laboratory Lab Results: Lab Results 01/19/18 01/19/18 01/19/18 Range/Units 19:44 19:44 19:44 WBC 8.4 (3.5-10.8) 10^3/ul RBC 4.51 (4.0-5.4) 10^6/ul Hgb 14.3 (14.0-18.0) g/dl Hct 41 L (42-52) % MCV 92 (80-94) fL MCH 32 H (27-31) pg MCHC 35 (31-36) g/dl RDW 13 (10.5-15) % Plt Count 219 (150-450) 10^3/ul MPV 8.2 (7.4-10.4) um3 Neut % (Auto) 73.1 (38-83) % Lymph % (Auto) 19.6 L (25-47) % [place] % (Auto) 5.7 (0-7) % Eos % (Auto) 0.8 (0-6) % Baso % (Auto) 0.8 (0-2) % Absolute Neuts (auto) 6.1 (1.5-7.7) 10^3/ul Absolute Lymphs (auto) 1.6 (1.0-4.8) 10^3/ul Absolute Monos (auto) 0.5 (0-0.8) 10^3/ul Absolute Eos (auto) 0.1 (0-0.6) 10^3/ul Absolute Basos (auto) 0.1 (0-0.2) 10^3/ul Absolute Nucleated RBC 0 10^3/ul Nucleated RBC % 0.1 INR (Anticoag Therapy) 0.89 (0.77-1.02) APTT 29.8 (26.0-36.3) seconds Sodium 137 (133-145) mmol/L Potassium 4.3 (3.5-5.0) mmol/L Chloride 104 (101-111) mmol/L Carbon Dioxide 27 (22-32) mmol/L Anion Gap 6 (2-11) mmol/L BUN 15 (6-24) mg/dL Creatinine 1.06 (0.67-1.17) mg/dL Est GFR ( Amer) 89.1 (>60) Est GFR (Non-Af Amer) 69.3 (>60) BUN/Creatinine Ratio 14.2 (8-20) Glucose 106 H (70-100) mg/dL Lactic Acid (0.5-2.0) mmol/L Calcium 9.6 (8.6-10.3) mg/dL Total Bilirubin 0.40 (0.2-1.0) mg/dL AST 21 (13-39) U/L ALT 17 (7-52) U/L Alkaline Phosphatase 52 (34-104) U/L CK-MB (CK-2) 3.7 (0.6-6.3) ng/mL Troponin I 0.00 (<0.04) ng/mL Total Protein 7.2 (6.4-8.9) g/dL Albumin 4.3 (3.2-5.2) g/dL Globulin 2.9 (2-4) g/dL Albumin/Globulin Ratio 1.5 (1-3) 01/19/18 Range/Units 19:44 WBC (3.5-10.8) 10^3/ul RBC (4.0-5.4) 10^6/ul Hgb (14.0-18.0) g/dl Hct (42-52) % MCV (80-94) fL MCH (27-31) pg MCHC (31-36) g/dl RDW (10.5-15) % Plt Count (150-450) 10^3/ul MPV (7.4-10.4) um3 Neut % (Auto) (38-83) % Lymph % (Auto) (25-47) % [place] % (Auto) (0-7) % Eos % (Auto) (0-6) % Baso % (Auto) (0-2) % Absolute Neuts (auto) (1.5-7.7) 10^3/ul Absolute Lymphs (auto) (1.0-4.8) 10^3/ul Absolute Monos (auto) (0-0.8) 10^3/ul Absolute Eos (auto) (0-0.6) 10^3/ul Absolute Basos (auto) (0-0.2) 10^3/ul Absolute Nucleated RBC 10^3/ul Nucleated RBC % INR (Anticoag Therapy) (0.77-1.02) APTT (26.0-36.3) seconds Sodium (133-145) mmol/L Potassium (3.5-5.0) mmol/L Chloride (101-111) mmol/L Carbon Dioxide (22-32) mmol/L Anion Gap (2-11) mmol/L BUN (6-24) mg/dL Creatinine (0.67-1.17) mg/dL Est GFR ( Amer) (>60) Est GFR (Non-Af Amer) (>60) BUN/Creatinine Ratio (8-20) Glucose (70-100) mg/dL Lactic Acid 0.8 (0.5-2.0) mmol/L Calcium (8.6-10.3) mg/dL Total Bilirubin (0.2-1.0) mg/dL AST (13-39) U/L ALT (7-52) U/L Alkaline Phosphatase (34-104) U/L CK-MB (CK-2) (0.6-6.3) ng/mL Troponin I (<0.04) ng/mL Total Protein (6.4-8.9) g/dL Albumin (3.2-5.2) g/dL Globulin (2-4) g/dL Albumin/Globulin Ratio (1-3) Result Diagrams: 01/19/18 19:44 01/19/18 19:44 Lab Statement: Any lab studies that have been ordered have been reviewed, and results considered in the medical decision making process. - Radiology CXR Radiology Interpretation Completed By: Radiologist - 1. HYPERINFLATION. 2. STABLE SMALL LEFT PLEURAL EFFUSION VERSUS CHRONIC PLEURAL THICKENING. ED physician has reviewed this radiology report. - CT Spine CT CT Interpretation Completed By: Radiologist - 1. OSTEOPENIA. 2. DEGENERATIVE DISC DISEASE AND OSTEOARTHRITIS. 3. THERE IS NO OSSEOUS NEURAL FORAMINAL NARROWING OR CENTRAL CANAL STENOSIS.. ED physician has reviewed this radiology report. - EKG 1829 Cardiac Rate: NL EKG Rhythm: Sinus Rhythm - 73 BPM EKG Interpretation: Normal intervals. Normal axis. PCVs. No ST/T wave changes. Re-Evaluation - Re-Evaluation First Eval Re-Evaluation Time: 22:27 Change: Improved Comment: pt symptomatically improved with po analgesia and muscle relaxants. pt back and arm pain resolved. Pt with no focal weakness on repeat exam. Back Pain Course/Dx - Diagnoses Differential Diagnosis/HQI/PQRI: Positive: Compressive Cord Syndrome, Fracture, Herniated Disc, Neoplasm, Strain, Sprain Provider Diagnoses: Acute myofascial strain Discharge - Sign-Out/Discharge Documenting (check all that apply): Discharge - Discharge Plan Condition: Improved Disposition: HOME Prescriptions: Methocarbamol TAB* [Robaxin 500 MG TAB*] 500 mg PO TID PRN #20 tab PRN Reason: Spasms traMADol TAB* [Ultram*] 50 mg PO Q6HR PRN #10 tab MDD 200 mg PRN Reason: Pain Patient Education Materials: Osteoarthritis (ED), Muscle Spasm (ED) Referrals: Pascual Moyer MD [Primary Care Provider] - 3 Days Additional Instructions: RETURN TO THE EMERGENCY DEPARTMENT FOR CHANGING OR WORSENING SYMPTOMS. - Billing Disposition and Condition Condition: IMPROVED Disposition: HOME The documentation as recorded by the Alexis barbosa Sixian accurately reflects the service I personally performed and the decisions made by Trey gleason Omari A, MD.
== END 2018-01-19 23:00 | disposition home or self-care (01) ==
LOC: ED 18:25
DX: S39.012A Strain of muscle, fascia and tendon of lower back, initial encounter (principal); M54.9 Dorsalgia, unspecified; R06.02 Shortness of breath; X58.XXXA Exposure to other specified factors, initial encounter; Y92.9 Unspecified place or not applicable
CPT/HCPCS: 36415; 71046; 72128; 80053; 82553; 83605; 84484; 85025; 85610; 85730; 93005; 99283; A9270-GY

== ENCOUNTER 2018-03-07 16:21 | Emergency (ER) | payer MEDICARE, OTHER ==
[2018-03-07 16:39] VITALS: BP 126/83
--- NOTE | 2018-03-07 18:19 | UC ---
Upper Extremity HPI - HPI Summary HPI Summary: Patient is an otherwise healthy 67-year-old male presents to the with a concern over a cellulitis to the right index finger after he sustained a cactus thorn to the area 3 days ago. He endorses a mild amount of erythema around the area with some pus drainage. He is unable to be sure if he dislodged the cactus thorn 3 days ago. He endorses a mild amount of pain to the area. Denies any fevers. He is otherwise healthy and takes no medications. - History of Current Complaint Chief Complaint: UCUpperExtremity Stated Complaint: RED SWOLLEN FINGER Time Seen by Provider: 03/07/18 16:48 Hx Obtained From: Patient ?: No Onset/Duration: Sudden Onset Severity Initially: Mild Severity Currently: Mild Pain Intensity: 0 Pain Scale Used: 0-10 Numeric Location Of Pain: Is Discrete @ - Right index finger distal tip plantar surface Character: Aching Alleviating Factor(s): Nothing Associated Signs And Symptoms: Positive: Swelling, Redness Related History: Dominant Hand Right - Risk Factors Non-Orthopedic Risk Factor: Negative DVT Risk Factors: Negative Septic Arthritis Risk Factor: Negative - Allergies/Home Medications Allergies/Adverse Reactions: Allergies Allergy/AdvReac Type Severity Reaction Status Date / Time mold Allergy Unknown Verified 03/07/18 16:46 Reaction Details Zocor Allergy Unknown Uncoded 03/07/18 16:46 Reaction Details PMH/Surg Hx/FS Hx/Imm Hx Previously Healthy: Yes Other History Of: Comment Only: Anticoagulant Therapy - 325 mg asa bedtime, 81mg asa am - Surgical History Surgical History: Yes Surgery Procedure, Year, and Place: Prostatectomy, 2000, [facility], Prostate CA. Deviated Spetum Repair. Lymph Node Removed from Left Neck. Hernia Repair AND MALCOM FUNDOPLICATION - 2005. SURGERY FOR PERFORATED STOMACH /ULCERATIVE- 2014. Lt THUMB - LACERATED FROM SAW - REATTACHED TENDON - Family History Known Family History: Positive: Unknown, Cardiac Disease, Other - Brain CA - Social History Occupation: Unemployed Lives: With Family Alcohol Use: None Substance Use Type: None Smoking Status (MU): Never Smoked Tobacco Type: Cigarettes Have You Smoked in the Last Year: Yes - Immunization History Most Recent Influenza Vaccination: 2014 Most Recent Tetanus Shot: UNKNOWN Most Recent Pneumonia Vaccination: 2014 Review of Systems Constitutional: Negative Skin: Other - Distal tip plantar surface right index finger with erythema surrounding a small raised area ENT: Negative Respiratory: Negative Motor: Negative Neurovascular: Negative Musculoskeletal: Negative Neurological: Negative Is Patient Immunocompromised?: No All Other Systems Reviewed And Are Negative: Yes Physical Exam Triage Information Reviewed: Yes Appearance: Well-Appearing, Well-Nourished Vital Signs: Initial Vital Signs Temp 99.5 F 03/07/18 16:33 Pulse 80 03/07/18 16:33 Resp 15 03/07/18 16:33 BP 126/83 03/07/18 16:33 Pulse Ox 97 03/07/18 16:33 Vital Signs Reviewed: Yes Eye Exam: Normal Neck exam: Normal Neck: Positive: Supple, No Lymphadenopathy Respiratory Exam: Normal Respiratory: Positive: Chest non-tender, Lungs clear Cardiovascular Exam: Normal Cardiovascular: Positive: RRR Neurological: Positive: Alert Psychological Exam: Normal Psychological: Positive: Normal Response To Family Skin: Positive: Other - Right index finger distal tip plantar surface erythema measuring 1 cm with a 0.2 cm area of raised white blister without evidence of foreign body Upper Extremity Course/Dx - Course Course Of Treatment: Discussed treatment options with patient. I am reluctant to break the skin for possible dislodgment of foreign body. There appears to be no foreign body on physical exam. Due to the erythema and warmth around the distal tip of the right index finger, I will prescribe Keflex. He is encouraged to return for any worsening or changing symptoms, specifically pain to the distal tip or noticing a foreign body in the area. - Differential Dx/Diagnosis Provider Diagnoses: Cellulitis Discharge - Sign-Out/Discharge Documenting (check all that apply): Discharge/Admit/Transfer - Discharge Plan Condition: Stable Disposition: HOME Prescriptions: Cephalexin CAP* [Keflex CAP*] 500 mg PO TID #21 cap MDD 3 Patient Education Materials: Blister (ED) Referrals: Pascual Moyer MD [Primary Care Provider] - Additional Instructions: Keflex 3 times daily 7 days As discussed, if you're able to visualize the blister, you may used tweezers to try to take it out If symptoms persist past one week, return to the - Billing Disposition and Condition Condition: STABLE Disposition: HOME
== END 2018-03-07 16:59 | disposition home or self-care (01) ==
LOC: UCEAST 16:21
DX: L03.011 Cellulitis of right finger (principal); Z79.82 Long term (current) use of aspirin; Z85.46 Personal history of malignant neoplasm of prostate
CPT/HCPCS: 99202; G0463

== ENCOUNTER 2018-06-03 22:33 | Emergency (ER) | payer MEDICARE, OTHER ==
--- NOTE | 2018-06-03 23:18 | ED ---
Bite Injury/Animal - HPI Summary HPI Summary: Patient states he is concerned about exposure to rabies. Patient states his dog came in tonight with dried blood on his head and back. Patient states he wiped it off with water and paper towel. Blood is of unknown source. She could find no indication of wound on his dog. Patient's dog is up-to-date on rabies vaccination. Patient denies fever, cough, sore throat, CP, SOB, N/V/D, normal pain, change in urinary BM. - History of Current Complaint Chief Complaint: EDGeneral Stated Complaint: POSSIBLE RABIES EXPOSURE Time Seen by Provider: 06/03/18 23:16 Hx Obtained From: Patient Onset of Injury: Happened hours ago Severity Currently: None Pain Intensity: 0 - Allergies/Home Medications Allergies/Adverse Reactions: Allergies Allergy/AdvReac Type Severity Reaction Status Date / Time mold Allergy Unknown Verified 06/03/18 22:39 Reaction Details Zocor Allergy Unknown Uncoded 06/03/18 22:39 Reaction Details PMH/Surg Hx/FS Hx/Imm Hx Endocrine/Hematology History: Denies: Hx Diabetes, Hx Thyroid Disease Comment Only: Hx Anticoagulant Therapy - 325 mg asa bedtime, 81mg asa am Cardiovascular History: Reports: Hx Hypercholesterolemia, Hx Hypertension Denies: Hx Pacemaker/ICD Respiratory History: Reports: Hx Asthma, Hx Pulmonary Embolism - Aug 2015, Hx Sleep Apnea, Other Respiratory Problems/Disorders - LT PLEURAL EFFUSION 07/2015/ TUBE PLACEMENT GI History: Reports: Hx Gastroesophageal Reflux Disease History: Reports: Hx Renal Disease - CYST, RT KIDNEY, Other Problems/ Disorders - cyst right kidney, prostate CA Musculoskeletal History: Reports: Hx Arthritis Sensory History: Reports: Hx Contacts or Glasses, Hx Vision Problem - near sighted, Hx Hearing Aid - DOESN'T WEAR, Hx Hearing Problem Opthamlomology History: Reports: Hx Contacts or Glasses, Hx Vision Problem - near sighted Psychiatric History: Denies: Hx Panic Disorder, Hx Substance Abuse - Cancer History Cancer Type, Location and Year: PROSTATE Hx Chemotherapy: No Hx Radiation Therapy: No - Surgical History Surgery Procedure, Year, and Place: Prostatectomy, 2000, [facility], Prostate [place]. Deviated Spetum Repair. Lymph Node Removed from Left Neck. Hernia Repair AND MALCOM FUNDOPLICATION - 2005. SURGERY FOR PERFORATED STOMACH /ULCERATIVE- 2014. Lt THUMB - LACERATED FROM SAW - REATTACHED TENDON Hx Anesthesia Reactions: No - Immunization History Date of Tetanus Vaccine: 2011 Date of Influenza Vaccine: 06/15 Infectious Disease History: No Infectious Disease History: Reports: Hx Hepatitis - Hepatitis B, Hx Shingles Denies: Traveled Outside the [place] in Last 30 Days - Family History Known Family History: Positive: Unknown, Cardiac Disease, Other - Brain CA - Social History Alcohol Use: None Hx Substance Use: No Substance Use Type: Reports: None Hx Tobacco Use: No Smoking Status (MU): Never Smoked Tobacco Type: Cigarettes Have You Smoked in the Last Year: Yes Review of Systems Constitutional: Negative Eyes: Negative ENT: Negative Cardiovascular: Negative Respiratory: Negative Gastrointestinal: Negative Genitourinary: Negative Musculoskeletal: Negative Skin: Negative Neurological: Negative Psychological: Normal All Other Systems Reviewed And Are Negative: Yes Physical Exam - Summary Physical Exam Summary: No obvious open wounds on patient's hands. Triage Information Reviewed: Yes Vital Signs On Initial Exam: Initial Vitals Temp Pulse Resp BP Pulse Ox 98.1 F 63 18 150/96 98 06/03/18 22:36 06/03/18 22:36 06/03/18 22:36 06/03/18 22:36 06/03/18 22:36 Vital Signs Reviewed: Yes Appearance: Positive: Well-Appearing Skin: Positive: Warm Head/Face: Positive: Normal Head/Face Inspection Eyes: Positive: Normal Neck: Positive: Supple Respiratory/Lung Sounds: Positive: Clear to Auscultation Cardiovascular: Positive: Normal Abdomen Description: Positive: Nontender Musculoskeletal: Positive: Normal Neurological: Positive: Normal Psychiatric: Positive: Normal AVPU Assessment: Alert - [place] Coma Scale Best Eye Response: 4 - Spontaneous Best Motor Response: 6 - Obeys Commands Best Verbal Response: 5 - Oriented Coma Scale Total: 15 Diagnostics - Vital Signs Vital Signs Temp Pulse Resp BP Pulse Ox 06/03/18 22:36 98.1 F 63 18 150/96 98 - Laboratory Lab Statement: Any lab studies that have been ordered have been reviewed, and results considered in the medical decision making process. Bite Injury Course/Dx - Course Course Of Treatment: Patient states he is concerned about exposure to rabies. Patient states his dog came in tonight with dried blood on his head and back. Patient states he wiped it off with water and paper towel. Blood is of unknown source. She could find no indication of wound on his dog. Patient's dog is up- to-date on rabies vaccination. [facility] contacted. Patient' s situation was discussed and Migue from health department states exposure has to be thru saliva, which has to be wet and copious and patient has to have open wound or mucosal membrane exposure. Patient denies open wound on hand, or rubbing his eyes, nose, mouth after wiping dog off. Patient states he did wash his hands very carefully after wiping the dog. Denies any wet saliva noted on dog. - Diagnoses Provider Diagnosis: Contact with and suspected exposure to rabies Discharge - Sign-Out/Discharge Documenting (check all that apply): Patient Departure - Discharge Plan Condition: Stable Disposition: HOME Patient Education Materials: Rabies (ED) Referrals: Pascual Moyer MD [Primary Care Provider] - Additional Instructions: Follow-up with primary care. Return to the ED for any new or worsening symptoms - Billing Disposition and Condition Condition: STABLE Disposition: Home
[2018-06-03 23:29] VITALS: BP 128/74
== END 2018-06-03 23:28 | disposition home or self-care (01) ==
LOC: ED 22:33
DX: Z20.3 Contact with and (suspected) exposure to rabies (principal); Z85.46 Personal history of malignant neoplasm of prostate; Z79.82 Long term (current) use of aspirin; Z82.49 Family history of ischemic heart disease and other diseases of the circulatory system; Z80.8 Family history of malignant neoplasm of other organs or systems
CPT/HCPCS: 99281

== ENCOUNTER 2018-06-05 14:21 | Emergency (ER) | payer MEDICARE, OTHER ==
[2018-06-05 14:53] VITALS: BP 128/84
[2018-06-05] MEDS ORDERED: Rabies VIRUS VACCINE (Imovax)* 2.5 UNIT/ML 1 ML IM ONE (15:00)
--- NOTE | 2018-06-05 15:14 | UC ---
Bite Injury/Animal HPI - HPI Summary HPI Summary: This is scribe Keyon Choudhary documenting for attending Avelino Mclaughlin MD. This patient is a 68 year old M presenting to [facility] because he requests a rabies vaccine for an incident that occurred 2 days ago.Patient reports chronic difficulty hearing and a cut on his left thumb. Pt reports that his dog was out on a run and returned with dried blood on his head and body and dry saliva. Pt is worried that the dog was carrying rabies and he has an open cut on his left hand. Pt reports that his dog was taken to the vet and given a booster shot. Pt reports that he received a rabies shot in 2004 for a bat bite. PMHx HTN, prostate CA, difficulty hearing. FHx HTN. I, Dr. Mclaughlin, personally performed the services described in this documentation as scribed in my presence and it is both accurate and complete. - History of Current Complaint Chief Complaint: UCBiteInjury Stated Complaint: RABIES IMMUNIZATION Time Seen by Provider: 06/05/18 15:00 Hx Obtained From: Patient Severity Currently: None Severity Initially: Mild Pain Intensity: 0 Pain Scale Used: 0-10 Numeric Onset/Duration: Sudden Onset Type of Bite: Wild Animal Has Animal Been Immunized?: Unknown Associated Signs And Symptoms: Positive: Negative - Allergies/Home Medications Allergies/Adverse Reactions: Allergies Allergy/AdvReac Type Severity Reaction Status Date / Time mold Allergy Unknown Verified 06/05/18 14:52 Reaction Details Zocor Allergy Unknown Uncoded 06/05/18 14:52 Reaction Details PMH/Surg Hx/FS Hx/Imm Hx Cardiovascular History: Hypertension Cancer History: Prostate Cancer Other History Of: Comment Only: Anticoagulant Therapy - 325 mg asa bedtime, 81mg asa am - Surgical History Surgical History: Yes Surgery Procedure, Year, and Place: Prostatectomy, 2000, [facility], Prostate [place]. Deviated Spetum Repair. Lymph Node Removed from Left Neck. Hernia Repair AND MALCOM FUNDOPLICATION - 2005. SURGERY FOR PERFORATED STOMACH /ULCERATIVE- 2014. Lt THUMB - LACERATED FROM SAW - REATTACHED TENDON - Family History Known Family History: Positive: Cardiac Disease, Other - Brain CA - Social History Alcohol Use: None Substance Use Type: None Smoking Status (MU): Never Smoked Tobacco Type: Cigarettes Have You Smoked in the Last Year: Yes - Immunization History Most Recent Influenza Vaccination: 2014 Most Recent Tetanus Shot: UNKNOWN Most Recent Pneumonia Vaccination: 2015 Review of Systems Constitutional: Negative Skin: Other - small cut on left thumb Respiratory: Negative All Other Systems Reviewed And Are Negative: Yes Physical Exam - Summary Physical Exam Summary: General: well-appearing, no pain distress Skin: warm, color reflects adequate perfusion, dry. Healed skin break on the left thumb on the ulnar aspect Head: normal Eyes: EOMI, MIGUEL ENT: normal Neck: supple, nontender Respiratory: CTA, breath sounds present Cardiovascular: RRR Abdomen: soft, nontender Bowel: present Musculoskeletal: normal, strength/ROM intact Neurological: sensory/motor intact, A&O x3 Psychological: affect/mood appropriate Triage Information Reviewed: Yes Vital Signs: Initial Vital Signs Temp 98.9 F 06/05/18 14:48 Pulse 61 06/05/18 14:48 Resp 20 06/05/18 14:48 BP 128/84 06/05/18 14:48 Pulse Ox 99 06/05/18 14:48 Vital Signs Reviewed: Yes Bite Injury Course/Dx - Course Course Of Treatment: 13.2ML OF RIG GIVEN IN RT POSTERIOR KNEE WOUND BY MYSELF. THE WOUND DOES NOT HAVE ANY DRAINAGE OR ERYTHEMA AT THIS TIME. PATIENT IS ON ABX. DAY 0 RABIES VACCINE GIVEN TODAY. F/U WITH HEALTH DEPARTMENT; RECHECK SOONER IF NEEDED. - Differential Dx/Diagnosis Provider Diagnoses: RABIES EXPOSURE Discharge - Sign-Out/Discharge Documenting (check all that apply): Patient Departure - Discharge Plan Condition: Stable Disposition: HOME Patient Education Materials: Rabies Vaccine (By injection) Referrals: Pascual Moyer MD [Primary Care Provider] - Additional Instructions: YOU GOT THE RABIES VACCINE TODAY. GET THE SECOND VACCINE ON 06/08/18. FOLLOW UP WITH YOUR DOCTOR. GET RECHECKED FOR ANY WORSENING OF YOUR CONDITION OR QUESTIONS OR CONCERNS. - Billing Disposition and Condition Condition: STABLE Disposition: Home
== END 2018-06-05 15:37 | disposition home or self-care (01) ==
LOC: UCEAST 14:21
DX: Z20.3 Contact with and (suspected) exposure to rabies (principal); Z23 Encounter for immunization; Z79.82 Long term (current) use of aspirin; Z82.49 Family history of ischemic heart disease and other diseases of the circulatory system; Z80.8 Family history of malignant neoplasm of other organs or systems
CPT/HCPCS: 99211; G0463

== ENCOUNTER 2018-06-07 14:07 | Emergency (ER) | payer MEDICARE, OTHER ==
--- NOTE | 2018-06-07 14:26 | ED ---
Dizziness - HPI Summary HPI Summary: This is scribe Ed Claudia documenting for attending Dr. Bret Corey. 68 y/o male BIBA c/o sudden onset episode of diaphoresis and weakness several hours ago, lasting over 30 minutes. Pt still feels generally tired, but slightly better. Episode characterized with palpitations described as racing, bilateral arm weakness, diaphoresis, SOB and fatigue. Onset while clipping weeds s/p 5-10 minutes. BP 150s/80s checked at home during the episode. PMHx asthma. Pt [facility] I, Dr. Corey, personally performed the services described in this documentation as scribed in my presence and it is both accurate and complete. - History Of Current Complaint Chief Complaint: EDDizziness Stated Complaint: WEAKNESS Time Seen by Provider: 06/07/18 14:17 Hx Obtained From: Patient Onset/Duration: Suddenly Timing: Constant Character: Weak Aggravating Factor(s): Exertion Alleviating Factor(s): Nothing Associated Signs And Symptoms: Positive: Diaphoresis, SOB, Palpitations, Other: - bilateral arm weakness, fatigue - Allergies/Home Medications Allergies/Adverse Reactions: Allergies Allergy/AdvReac Type Severity Reaction Status Date / Time mold Allergy Unknown Verified 06/05/18 14:52 Reaction Details Zocor Allergy Unknown Uncoded 06/05/18 14:52 Reaction Details PMH/Surg Hx/FS Hx/Imm Hx Previously Healthy: No Endocrine/Hematology History: Denies: Hx Diabetes, Hx Thyroid Disease Comment Only: Hx Anticoagulant Therapy - 325 mg asa bedtime, 81mg asa am Cardiovascular History: Reports: Hx Hypercholesterolemia, Hx Hypertension Denies: Hx Pacemaker/ICD Respiratory History: Reports: Hx Asthma, Hx Pulmonary Embolism - Aug 2015, Hx Sleep Apnea, Other Respiratory Problems/Disorders - LT PLEURAL EFFUSION 07/2015/ TUBE PLACEMENT GI History: Reports: Hx Gastroesophageal Reflux Disease History: Reports: Hx Renal Disease - CYST, RT KIDNEY, Other Problems/ Disorders - cyst right kidney, prostate CA Musculoskeletal History: Reports: Hx Arthritis Sensory History: Reports: Hx Contacts or Glasses, Hx Vision Problem - near sighted, Hx Hearing Aid - DOESN'T WEAR, Hx Hearing Problem Opthamlomology History: Reports: Hx Contacts or Glasses, Hx Vision Problem - near sighted Psychiatric History: Denies: Hx Panic Disorder, Hx Substance Abuse - Cancer History Cancer Type, Location and Year: PROSTATE Hx Chemotherapy: No Hx Radiation Therapy: No - Surgical History Surgery Procedure, Year, and Place: Prostatectomy, 2001, [facility], Prostate [place]. Deviated Spetum Repair. Lymph Node Removed from Left Neck. Hernia Repair AND MALCOM FUNDOPLICATION - 2005. SURGERY FOR PERFORATED STOMACH /ULCERATIVE- 2014. Lt THUMB - LACERATED FROM SAW - REATTACHED TENDON Hx Anesthesia Reactions: No - Immunization History Date of Tetanus Vaccine: 2011 Date of Influenza Vaccine: 06/15 Infectious Disease History: No Infectious Disease History: Reports: Hx Hepatitis - Hepatitis B, Hx Shingles Denies: Traveled Outside the [place] in Last 30 Days - Family History Known Family History: Positive: Cardiac Disease, Other - Brain CA - Social History Alcohol Use: None Hx Substance Use: No Substance Use Type: Reports: None Hx Tobacco Use: No Smoking Status (MU): Never Smoked Tobacco Type: Cigarettes Have You Smoked in the Last Year: Yes Review of Systems Positive: Fatigue, Skin Diaphoresis Eyes: Negative ENT: Negative Positive: Palpitations Positive: Shortness Of Breath Gastrointestinal: Negative Genitourinary: Negative Musculoskeletal: Negative Skin: Negative Positive: Weakness - bilateral arm Psychological: Normal All Other Systems Reviewed And Are Negative: Yes Physical Exam - Summary Physical Exam Summary: Appearance: The patient is well-nourished in no acute distress and in no acute pain. Skin: The skin is warm and dry and skin color reflects adequate perfusion. HEENT: The head is normocephalic and atraumatic. The pupils are equal and reactive. The conjunctivae are clear and without drainage. Nares are patent and without drainage. Mouth reveals moist mucous membranes and the throat is without erythema and exudate. The external ears are intact. The ear canals are patent and without drainage. The tympanic membranes are intact. Neck: The neck is supple with full range of motion and non-tender. There are no carotid bruits. There is no neck vein distension. Respiratory: Chest is non-tender. Lungs are clear to auscultation and breath sounds are symmetrical and equal. Cardiovascular: Heart is regular rate and rhythm. There is no murmur or rub auscultated. There is no peripheral edema and pulses are symmetrical and equal. Abdomen: The abdomen is soft and non-tender. There are normal bowel sounds heard in all four quadrants and there is no organomegaly palpated. Musculoskeletal: There is no back tenderness noted. Extremities are non-tender with full range of motion. There is good capillary refill. There is no peripheral edema or calf tenderness elicited. Neurological: Patient is alert and oriented to person, place and time. The patient has symmetrical motor strength in all four extremities. Cranial nerves are grossly intact. Deep tendon reflexes are symmetrical and equal in all four extremities. Psychiatric: The patient has an appropriate affect and does not exhibit any anxiety or depression. Triage Information Reviewed: Yes Vital Signs On Initial Exam: Initial Vitals Temp Pulse Resp BP Pulse Ox 98.7 F 70 16 133/89 97 06/07/18 14:15 06/07/18 14:15 06/07/18 14:15 06/07/18 14:15 06/07/18 14:15 Vital Signs Reviewed: Yes Diagnostics - Vital Signs Vital Signs Temp Pulse Resp BP Pulse Ox 06/07/18 14:15 98.7 F 70 16 133/89 97 - Laboratory Lab Statement: Any lab studies that have been ordered have been reviewed, and results considered in the medical decision making process. Discharge - Discharge Plan Referrals: Pascual Moyer MD [Primary Care Provider] -
--- NOTE | 2018-06-07 14:54 | ED ---
Complex/Multi-Sys Presentation - HPI Summary HPI Summary: This is scribe Ed Claudia documenting for attending Dr. Bret Corey. 68 y/o male BIBA c/o sudden onset episode of generalized weakness several hours ago, lasting over 30 minutes. Pt still feels generally tired, but slightly better. Episode characterized with palpitations described as racing, generalized weakness, diaphoresis, SOB and fatigue. Onset while clipping weeds s /p 5-10 minutes. BP 150s/80s checked at home during the episode. PMHx asthma. Pt had a rabies booster shot two days ago at [facility]. I, Dr. Corey, personally performed the services described in this documentation as scribed in my presence and it is both accurate and complete. All - History Of Current Complaint Chief Complaint: EDDizziness Time Seen by Provider: 06/07/18 14:17 Hx Obtained From: Patient Onset/Duration: Sudden Onset, Lasting Minutes, Still Present Timing: Constant Associated Signs And Symptoms: Positive: Weakness, SOB, Palpitations, Diaphoresis, Other - fatigue - Allergies/Home Medications Allergies/Adverse Reactions: Allergies Allergy/AdvReac Type Severity Reaction Status Date / Time mold Allergy Eyes Verified 06/07/18 15:36 Itchy/Swollen/Red/Watery Zocor Allergy Fatigue Uncoded 06/07/18 15:36 PMH/Surg Hx/FS Hx/Imm Hx Previously Healthy: No Endocrine/Hematology History: Denies: Hx Diabetes, Hx Thyroid Disease Comment Only: Hx Anticoagulant Therapy - 325 mg asa bedtime, 81mg asa am Cardiovascular History: Reports: Hx Hypercholesterolemia, Hx Hypertension Denies: Hx Pacemaker/ICD Respiratory History: Reports: Hx Asthma, Hx Pulmonary Embolism - Aug 2015, Hx Sleep Apnea, Other Respiratory Problems/Disorders - LT PLEURAL EFFUSION 07/2015/ TUBE PLACEMENT GI History: Reports: Hx Gastroesophageal Reflux Disease History: Reports: Hx Renal Disease - CYST, RT KIDNEY, Other Problems/ Disorders - cyst right kidney, prostate CA Musculoskeletal History: Reports: Hx Arthritis Sensory History: Reports: Hx Contacts or Glasses, Hx Vision Problem - near sighted, Hx Hearing Aid - DOESN'T WEAR, Hx Hearing Problem Opthamlomology History: Reports: Hx Contacts or Glasses, Hx Vision Problem - near sighted Psychiatric History: Denies: Hx Panic Disorder, Hx Substance Abuse - Cancer History Cancer Type, Location and Year: PROSTATE Hx Chemotherapy: No Hx Radiation Therapy: No - Surgical History Surgery Procedure, Year, and Place: Prostatectomy, 2001, [facility], Prostate [place]. Deviated Spetum Repair. Lymph Node Removed from Left Neck. Hernia Repair AND MALCOM FUNDOPLICATION - 2005. SURGERY FOR PERFORATED STOMACH /ULCERATIVE- 2014. Lt THUMB - LACERATED FROM SAW - REATTACHED TENDON Hx Anesthesia Reactions: No - Immunization History Date of Tetanus Vaccine: 2011 Date of Influenza Vaccine: 06/15 Infectious Disease History: No Infectious Disease History: Reports: Hx Hepatitis - Hepatitis B, Hx Shingles Denies: Traveled Outside the [place] in Last 30 Days - Family History Known Family History: Positive: Cardiac Disease, Other - Brain CA - Social History Alcohol Use: None Hx Substance Use: No Substance Use Type: Reports: None Hx Tobacco Use: No Smoking Status (MU): Never Smoked Tobacco Type: Cigarettes Have You Smoked in the Last Year: Yes Review of Systems Constitutional: Negative Positive: Fatigue, Skin Diaphoresis Eyes: Negative ENT: Negative Cardiovascular: Negative Positive: Palpitations Respiratory: Negative Positive: Shortness Of Breath Gastrointestinal: Negative Genitourinary: Negative Musculoskeletal: Negative Skin: Negative Neurological: Negative Positive: Weakness - bilateral arm Psychological: Normal All Other Systems Reviewed And Are Negative: Yes Physical Exam - Summary Physical Exam Summary: Appearance: The patient is well-nourished in no acute distress and in no acute pain. Skin: The skin is warm and dry and skin color reflects adequate perfusion. HEENT: The head is normocephalic and atraumatic. The pupils are equal and reactive. The conjunctivae are clear and without drainage. Nares are patent and without drainage. Mouth reveals moist mucous membranes and the throat is without erythema and exudate. The external ears are intact. The ear canals are patent and without drainage. The tympanic membranes are intact. Neck: The neck is supple with full range of motion and non-tender. There are no carotid bruits. There is no neck vein distension. Respiratory: Chest is non-tender. Lungs are clear to auscultation and breath sounds are symmetrical and equal. Cardiovascular: Heart is regular rate and rhythm. There is no murmur or rub auscultated. There is no peripheral edema and pulses are symmetrical and equal. Abdomen: The abdomen is soft and non-tender. There are normal bowel sounds heard in all four quadrants and there is no organomegaly palpated. Musculoskeletal: There is no back tenderness noted. Extremities are non-tender with full range of motion. There is good capillary refill. There is no peripheral edema or calf tenderness elicited. Neurological: Patient is alert and oriented to person, place and time. The patient has symmetrical motor strength in all four extremities. Cranial nerves are grossly intact. Deep tendon reflexes are symmetrical and equal in all four extremities. Psychiatric: The patient has an appropriate affect and does not exhibit any anxiety or depression. Triage Information Reviewed: Yes Vital Signs On Initial Exam: Initial Vitals Temp Pulse Resp BP Pulse Ox 98.7 F 70 16 133/89 97 06/07/18 14:15 06/07/18 14:15 06/07/18 14:15 06/07/18 14:15 06/07/18 14:15 Vital Signs Reviewed: Yes Diagnostics - Vital Signs Vital Signs Temp Pulse Resp BP Pulse Ox 06/07/18 14:15 98.7 F 73 16 133/89 98 - Laboratory Result Diagrams: 06/07/18 15:20 06/07/18 15:20 Lab Statement: Any lab studies that have been ordered have been reviewed, and results considered in the medical decision making process. - EKG 1 EKG Interpretation: 15:02 - NSR @ 61 BPM Re-Evaluation - Re-Evaluation 1 Re-Evaluation Time: 17:04 Comment: Discuss test results, plan of care. Pending repeat trop 2 Re-Evaluation Time: 18:27 Comment: Return of repeat troponin. Informed pt, discussed d/c. Pt agrees with plan Complex Multi-Symp Course/Dx Course Of Treatment: Mr. Nguyễn presented after a sudden episode of generalized weakness, mild shortness of breath and feeling like his heart was racing. He went inside and took his pulse which was in the 120s. His blood pressure was slightly higher than normal at that time also. He had been working outside in the sun on a humid day but not for very long. He was hydrated in the emergency department while labs were checked and kept on a monitor. His workup was unremarkable and he did feel improved and I recommended close follow-up with Dr. Chaves. - Diagnoses Provider Diagnoses: Near syncope Discharge - Sign-Out/Discharge Documenting (check all that apply): Patient Departure - Discharge Plan Condition: Stable Disposition: HOME Patient Education Materials: Near Syncope (ED) Referrals: Pascual Moyer MD [Primary Care Provider] - 4 Days (Please f/u in 3-5 days) Additional Instructions: RETURN TO THE ED FOR CHANGING/WORSENING SYMPTOMS - Billing Disposition and Condition Condition: STABLE Disposition: Home
[2018-06-07] MEDS ORDERED: NS 0.9% 1000 ML* 1,000 ML IV ONE (14:55)
[2018-06-07 15:27] LABS: ABS Basophils 0 10^3/ul (0-0.2); ABS Eosinophils 0.2 10^3/ul (0-0.6); ABS Lymphocytes 1.2 10^3/ul (1.0-4.8); ABS Monocytes 0.8 10^3/ul (0-0.8); ABS Neutrophils 5.6 10^3/ul (1.5-7.7); ABS Nucleated RBC 0 10^3/ul; Eosinophil % 3.1 % (0-6); Hematocrit 41 % (42-52); Hemoglobin 14.2 g/dl (14.0-18.0); Lymphocyte % 15.2 % (25-47); Mean Corpuscular HGB Conc 35 g/dl (31-36); Mean Corpuscular Hemoglobin 32 pg (27-31); Mean Corpuscular Volume 91 fL (80-94); Mean Platelet Volume 8.2 um3 (7.4-10.4); Nucleated Red Blood Cells % 0; Platelet Count 246 10^3/ul (150-450); Red Blood Count 4.47 10^6/ul (4.00-5.40); Red Cell Distribution Width 13 % (10.5-15); White Blood Count 7.8 10^3/ul (3.5-10.8)
[2018-06-07 15:32] LABS: INR 0.93 (0.77-1.02)
[2018-06-07 15:48] LABS: EGFR Non-African American 67.6 (>60)
[2018-06-07 15:51] LABS: Urine Appearance Clear; Urine Blood Negative (Negative); Urine Color Straw; Urine Ketones Negative (Negative); Urine Protein Negative (Negative); Urine Specific Gravity 1.005 (1.010-1.030); Urine Urobilinogen Negative (Negative)
[2018-06-07 18:45] VITALS: BP 154/85
== END 2018-06-07 18:57 | disposition home or self-care (01) ==
LOC: ED 14:07
DX: R55 Syncope and collapse (principal); R06.02 Shortness of breath; J45.909 Unspecified asthma, uncomplicated; F17.210 Nicotine dependence, cigarettes, uncomplicated; Z86.711 Personal history of pulmonary embolism; Z88.8 Allergy status to other drugs, medicaments and biological substances
CPT/HCPCS: 36415; 80053; 81003; 83605; 83735; 84443; 84484; 85025; 85610; 93005; 99282

== ENCOUNTER 2018-06-08 07:21 | Emergency (ER) | payer MEDICARE, OTHER ==
[2018-06-08 07:48] VITALS: BP 145/94
[2018-06-08] MEDS ORDERED: Rabies VIRUS VACCINE (Imovax)* 2.5 UNIT/ML 1 ML IM ONE (08:08)
--- NOTE | 2018-06-08 08:12 | UC ---
General HPI - HPI Summary HPI Summary: 5 DAYS AGO PT'S DOG CAME HOME COVERED IN WHAT SEEMED TO BE BLOOD. PT HAD AN ABRASION LEFT THUMB WHICH CAME INTO CONTACT WITH THIS SUBSTANCE. RECEIVED RABIES VACCINATION SERIES IN 2004. HAD INITIAL BOOSTER 3 DAYS AGO AND IS HERE FOR HIS SECOND BOOSTER. ALSO NOTICED A RED SPOT ON THE RIGHT SIDE OF HIS TONGUE LAST NIGHT. SLIGHTLY TENDER. - History of Current Complaint Chief Complaint: UCGU Stated Complaint: RABIES BOOSTER Time Seen by Provider: 06/08/18 07:46 Hx Obtained From: Patient Onset/Duration: Sudden Onset Onset Severity: Mild Current Severity: None Pain Intensity: 0 - Allergy/Home Medications Allergies/Adverse Reactions: Allergies Allergy/AdvReac Type Severity Reaction Status Date / Time mold Allergy Eyes Verified 06/08/18 07:42 Itchy/Swollen/Red/Watery Zocor Allergy Fatigue Uncoded 06/08/18 07:42 PMH/Surg Hx/FS Hx/Imm Hx Cardiovascular History: Hypertension Respiratory History: Asthma Cancer History: Prostate Cancer Other History Of: Hepatitis B Comment Only: Anticoagulant Therapy - 325 mg asa bedtime, 81mg asa am - Surgical History Surgical History: Yes Surgery Procedure, Year, and Place: Prostatectomy, 2000, [facility], Prostate [place]. Deviated Spetum Repair. Lymph Node Removed from Left Neck. Hernia Repair AND MALCOM FUNDOPLICATION - 2005. SURGERY FOR PERFORATED STOMACH /ULCERATIVE- 2014. Lt THUMB - LACERATED FROM SAW - REATTACHED TENDON - Family History Known Family History: Positive: Cardiac Disease, Hypertension, Other - Brain CA - Social History Alcohol Use: None Substance Use Type: None Smoking Status (MU): Never Smoked Tobacco Type: Cigarettes Have You Smoked in the Last Year: Yes - Immunization History Most Recent Influenza Vaccination: 2014 Most Recent Tetanus Shot: UNKNOWN Most Recent Pneumonia Vaccination: 2014 Review of Systems Constitutional: Negative Skin: Other - TONGUE LESION Respiratory: Negative Cardiovascular: Negative Gastrointestinal: Negative All Other Systems Reviewed And Are Negative: Yes Physical Exam Triage Information Reviewed: Yes Appearance: Well-Appearing, No Pain Distress, Well-Nourished Vital Signs: Initial Vital Signs Temp 98.2 F 06/08/18 07:42 Pulse 70 06/08/18 07:42 Resp 18 06/08/18 07:42 BP 145/94 06/08/18 07:42 Pulse Ox 98 06/08/18 07:42 Vital Signs Reviewed: Yes Eyes: Positive: Conjunctiva Clear ENT: Positive: Hearing grossly normal, Pharynx normal Neck: Positive: Supple Respiratory: Positive: No respiratory distress, No accessory muscle use Cardiovascular: Positive: Pulses Normal Abdomen Description: Positive: Soft Musculoskeletal: Positive: No Edema Neurological: Positive: Alert Psychological: Positive: Age Appropriate Behavior Skin: Positive: Other - 3MM DIAMETER SOFT DARK RED LESION RIGHT SIDE OF TONGUE. Course/Dx - Differential Dx - Multi-Symptom Provider Diagnoses: 1. RABIES BOOSTER. 2. BLOOD BLISTER RIGHT SIDE OF TONGUE Discharge - Sign-Out/Discharge Documenting (check all that apply): Patient Departure - Discharge Plan Condition: Stable Disposition: HOME Patient Education Materials: Rabies Vaccine (ED) Referrals: Pascual Moyer MD [Primary Care Provider] - Additional Instructions: RABIES BOOSTER VACCINE ADMINISTERED TODAY. THE SPOT ON YOUR TONGUE LOOKS LIKE A BLOOD BLISTER LIKELY FROM SOME MINOR TRAUMA. KEEP AN EYE ON IT AND FOLLOW-UP WITH YOUR PCP IF IT DOES NOT RESOLVE WITHIN A COUPLE OF WEEKS. - Billing Disposition and Condition Condition: STABLE Disposition: Home
== END 2018-06-08 08:25 | disposition home or self-care (01) ==
LOC: UCEAST 07:21
DX: Z20.3 Contact with and (suspected) exposure to rabies (principal); Z23 Encounter for immunization; S00.522A Blister (nonthermal) of oral cavity, initial encounter; X58.XXXA Exposure to other specified factors, initial encounter; Y93.9 Activity, unspecified; Y92.9 Unspecified place or not applicable; Z88.8 Allergy status to other drugs, medicaments and biological substances; Z79.82 Long term (current) use of aspirin; Z85.46 Personal history of malignant neoplasm of prostate
CPT/HCPCS: 90471; 99212; G0463

== ENCOUNTER 2018-09-24 09:27 | Emergency (ER) | payer MEDICARE, OTHER ==
--- NOTE | 2018-09-24 10:26 | ED ---
Abdominal Pain/Male - HPI Summary HPI Summary: 68 year old male presents with intermittent abdominal pain x 1 month. Patient had surgery 3 years ago to repair a ruptured gastric ulcer. He was diagnosed with gastroparesis after his surgery and follows with GI for this condition. Patient is on dexlansoprazole for antacid.Patient states he began colesevelam on 09/05 and developed epigastric pain and subsequently discontinued the medication. His pain has been intermittent and "tight" in nature since taking colesevelam. States his stomach "just doesn't feel right." He states the pain occasionally radiates to the back but not to the chest, arms or jaw. Patient states the pain is worse at night and notices no changes in the pain with food. Patient denies cardiac history. He has a personal history of hypertension and high cholesterol. Patient states he has not experienced any pain like this before and has not had any issues with pain since surgery. - History of Current Complaint Chief Complaint: EDAbdPain Stated Complaint: ABD PAIN Time Seen by Provider: 09/24/18 10:02 Hx Obtained From: Patient Onset/Duration: Gradual Onset, Lasting Weeks Timing: Intermittent Severity Initially: Mild Severity Currently: Mild Pain Intensity: 1 Pain Scale Used: 0-10 Numeric Location: Epigastric Radiates: Yes Radiates to: Back - occasionally Character: Other: - tight Aggravating Factor(s): Other: - worse at night Alleviating Factor(s): Nothing Associated Signs And Symptoms: Negative: Diaphoresis, Chest Pain, Nausea, Vomiting - Risk Factors Testicular Torsion: Negative Cardiac Risk Factors: Hypertension, Elevated Lipids - Allergies/Home Medications Allergies/Adverse Reactions: Allergies Allergy/AdvReac Type Severity Reaction Status Date / Time mold Allergy Eyes Verified 09/24/18 09:40 Itchy/Swollen/Red/Watery simvastatin [From Zocor] Allergy Fatigue Verified 09/24/18 10:03 Home Medications: Home Medications LevoCETirizine TAB (NF) [Xyzal TAB (NF)] 5 mg PO BEDTIME 09/24/18 [History Confirmed 09/24/18] Lisinopril 40 mg PO DAILY 09/24/18 [History Confirmed 09/24/18] Mometasone NASAL (NF) [Nasonex (NF)] 2 spray BOTH NARES DAILY 09/24/18 [History Confirmed 09/24/18] Qvar 80 MCG MDI(NF) 2 puff PO BID 09/24/18 [History Confirmed 09/24/18] PMH/Surg Hx/FS Hx/Imm Hx Endocrine/Hematology History: Denies: Hx Diabetes, Hx Thyroid Disease Comment Only: Hx Anticoagulant Therapy - 325 mg asa bedtime, 81mg asa am Cardiovascular History: Reports: Hx Hypercholesterolemia, Hx Hypertension Denies: Hx Pacemaker/ICD Respiratory History: Reports: Hx Asthma, Hx Pulmonary Embolism - Aug 2015, Hx Sleep Apnea, Other Respiratory Problems/Disorders - LT PLEURAL EFFUSION 07/2015/ TUBE PLACEMENT GI History: Reports: Hx Gastroesophageal Reflux Disease History: Reports: Hx Renal Disease - CYST, RT KIDNEY, Other Problems/ Disorders - cyst right kidney, prostate CA Musculoskeletal History: Reports: Hx Arthritis Sensory History: Reports: Hx Contacts or Glasses, Hx Vision Problem - near sighted, Hx Hearing Aid - DOESN'T WEAR, Hx Hearing Problem Opthamlomology History: Reports: Hx Contacts or Glasses, Hx Vision Problem - near sighted Psychiatric History: Denies: Hx Panic Disorder, Hx Substance Abuse - Cancer History Cancer Type, Location and Year: PROSTATE Hx Chemotherapy: No Hx Radiation Therapy: No - Surgical History Surgery Procedure, Year, and Place: Prostatectomy, 2000, [facility], Prostate [place]. Deviated Spetum Repair. Lymph Node Removed from Left Neck. Hernia Repair AND MALCOM FUNDOPLICATION - 2005. SURGERY FOR PERFORATED STOMACH /ULCERATIVE- 2014. Lt THUMB - LACERATED FROM SAW - REATTACHED TENDON Hx Anesthesia Reactions: No - Immunization History Date of Tetanus Vaccine: 2011 Date of Influenza Vaccine: 06/15 Infectious Disease History: No Infectious Disease History: Reports: Hx Hepatitis - Hepatitis B, Hx Shingles Denies: Traveled Outside the [place] in Last 30 Days - Family History Known Family History: Positive: Cardiac Disease, Hypertension, Other - Brain CA - Social History Alcohol Use: None Hx Substance Use: No Substance Use Type: Reports: None Hx Tobacco Use: No Smoking Status (MU): Never Smoked Tobacco Type: Cigarettes Have You Smoked in the Last Year: Yes Review of Systems Negative: Fever, Chills, Fatigue Negative: Palpitations, Chest Pain Negative: Shortness Of Breath, Cough Positive: Abdominal Pain. Negative: Vomiting, Nausea Genitourinary: Negative Musculoskeletal: Negative Negative: Numbness All Other Systems Reviewed And Are Negative: Yes Physical Exam Vital Signs On Initial Exam: Initial Vitals Temp Pulse Resp BP Pulse Ox 98.6 F 72 16 146/80 97 09/24/18 09:32 09/24/18 09:32 09/24/18 09:32 09/24/18 09:32 09/24/18 09:32 Diagnostics - Vital Signs Vital Signs Temp Pulse Resp BP Pulse Ox 09/24/18 10:00 61 22 97 09/24/18 09:54 22 149/89 09/24/18 09:32 98.6 F 72 16 146/80 97 - Laboratory Result Diagrams: 09/24/18 10:24 09/24/18 10:24 Lab Statement: Any lab studies that have been ordered have been reviewed, and results considered in the medical decision making process. Abdominal Pain Fem Course/Dx - Course Course Of Treatment: 68 year old male presents with epigastric pain x 1 month after starting colesevelam. Patient states he started colesevelam on 09/05 and began experiencing intermittent epigastric pain and subsequently discontinued medication without relief of symptoms. Patient states he feels "tight" and "not right" in his epigastric region. Had a surgical repair of a ruptured gastric ulcer 3 years ago and developed gastroparesis after. Patient states the pain occasionally radiates to back, denies chest pain, SOB. Lipase and amylase negative. Ct obtained: IMPRESSION: #. 1.4 cm AP by 1.3 cm transverse sharply circumscribed hypodense lesion at the body of. the pancreas with interval decrease in size from 2.7 x 2.6 cm on the 2015 exam consistent. with benign etiology most likely a pseudocyst. Moderate atrophy of the tail the pancreas. with mild interval worsening. Negative for acute pancreatic or peripancreatic inflammatory. change to suggest acute pancreatitis. #. No acute pathologic process of the alimentary tract evident. Negative for hiatal. hernia. No definitive fundoplication morphology evident. Mild diverticulosis of the. sigmoid colon. #. Negative for lymphadenopathy or suspicious focal osseous lesions. Discussed treatment options with patient. Patient will follow-up with doctor Gallo as soon as possible. He understands return precautions. I have advised to take [id number] Maalox or other acid reducers for any breakthrough pain. He is okay with this plan and discharge. Continues to at this point be asymptomatic. - Diagnoses Differential Diagnosis/HQI/PQRI: Pancreatitis, Other - Pancreatic pseudocyst, as reflux, gastric ulcer, duodenal ulcer Provider Diagnoses: Epigastric pain Discharge - Sign-Out/Discharge Documenting (check all that apply): Patient Departure - Discharge Plan Condition: Stable Disposition: HOME Referrals: Pascual Moyer MD [Primary Care Provider] - Additional Instructions: Continue with your medications as prescribed Follow up with Dr. Gallo as soon as possible Maalox or other acid natural resource manager medications over the counter for any breakthrough pain - Billing Disposition and Condition Condition: STABLE Disposition: Home
[2018-09-24 10:35] LABS: ABS Basophils 0 10^3/ul (0-0.2); ABS Eosinophils 0.1 10^3/ul (0-0.6); ABS Lymphocytes 1.4 10^3/ul (1.0-4.8); ABS Monocytes 0.5 10^3/ul (0-0.8); ABS Neutrophils 3.1 10^3/ul (1.5-7.7); ABS Nucleated RBC 0 10^3/ul; Eosinophil % 1.1 % (0-6); Hematocrit 43 % (42-52); Hemoglobin 14.9 g/dl (14.0-18.0); Lymphocyte % 27.2 % (25-47); Mean Corpuscular HGB Conc 35 g/dl (31-36); Mean Corpuscular Hemoglobin 32 pg (27-31); Mean Corpuscular Volume 92 fL (80-94); Mean Platelet Volume 8.4 fL (7.4-10.4); Nucleated Red Blood Cells % 0.5; Platelet Count 221 10^3/ul (150-450); Red Blood Count 4.66 10^6/ul (4.00-5.40); Red Cell Distribution Width 13 % (10.5-15); White Blood Count 5.2 10^3/ul (3.5-10.8)
[2018-09-24 10:40] LABS: INR 0.95 (0.77-1.02)
[2018-09-24 10:56] LABS: EGFR Non-African American 70.6 (>60)
[2018-09-24] MEDS ORDERED: Iohexol 300* (CONTRAST) 10 ML SDV IV ONE (11:24)
[2018-09-24 11:31] LABS: Urine Appearance Clear; Urine Blood Negative (Negative); Urine Color Colorless; Urine Ketones Negative (Negative); Urine Protein Negative (Negative); Urine Specific Gravity 1.003 (1.010-1.030); Urine Urobilinogen Negative (Negative)
[2018-09-24 13:16] VITALS: BP 115/76
== END 2018-09-24 13:10 | disposition home or self-care (01) ==
LOC: ED 09:27
DX: R10.13 Epigastric pain (principal); I10 Essential (primary) hypertension; Z79.82 Long term (current) use of aspirin; Z88.8 Allergy status to other drugs, medicaments and biological substances; Z85.46 Personal history of malignant neoplasm of prostate
CPT/HCPCS: 36415; 74177; 80053; 81003; 82150; 82550; 83605; 83690; 83735; 84484; 85025; 85610; 86140; 86803; 99283; Q9967

== ENCOUNTER 2018-10-13 17:48 | Emergency (ER) | payer MEDICARE, OTHER ==
[2018-10-13 18:01] VITALS: BP 145/88
--- NOTE | 2018-10-13 19:06 | UC ---
Throat Pain/Nasal Silas HPI - HPI Summary HPI Summary: 68 y/o male presents to the urgent care c/o body aches, fatigue, nasal congestion w/ clear nasal discharge w/ mild sore throat since yesterday. Pt reports pain w/ swallowing is 4/10. He has not taking anything to alleviate symptoms. Pt denies fever, SALAZAR, cough, SOB, chest pain, abdominal pain, N/V/D. - History of Current Complaint Chief Complaint: UCGeneralIllness Stated Complaint: BODYACHES,SORE THROAT Time Seen by Provider: 10/13/18 18:27 Hx Obtained From: Patient Onset/Duration: Gradual Onset, Lasting Days - 1 day, Still Present Severity: Mild Pain Intensity: 3 - body aches, sore throat Pain Scale Used: 0-10 Numeric Cough: None Associated Signs & Symptoms: Positive: Sinus Discomfort, Nasal Discharge - clear. Negative: Dysphagia, Wheezing, Fever - Epiglottits Risk Factors Epiglottis Risk Factors: Negative - Allergies/Home Medications Allergies/Adverse Reactions: Allergies Allergy/AdvReac Type Severity Reaction Status Date / Time mold Allergy Eyes Verified 10/13/18 18:02 Itchy/Swollen/Red/Watery simvastatin [From Zocor] Allergy Fatigue Verified 10/13/18 18:02 Home Medications: Home Medications Icosapent Ethyl [Vascepa] 10/13/18 [History] Montelukast Sodium TAB* [Singulair 10 MG TAB*] 10/13/18 [History] PMH/Surg Hx/FS Hx/Imm Hx Previously Healthy: Yes Cardiovascular History: Hypertension Respiratory History: Asthma Other History Of: Hepatitis B Comment Only: Anticoagulant Therapy - 325 mg asa bedtime, 81mg asa am - Surgical History Surgical History: Yes Surgery Procedure, Year, and Place: Prostatectomy, 2001, [facility], Prostate [place]. Deviated Spetum Repair. Lymph Node Removed from Left Neck. Hernia Repair AND MALCOM FUNDOPLICATION - 2005 stomach rupture with surgery 2014. SURGERY FOR PERFORATED STOMACH /ULCERATIVE- 2014. Lt THUMB - LACERATED FROM SAW - REATTACHED TENDON - Family History Known Family History: Positive: Cardiac Disease, Hypertension, Other - Brain CA - Social History Occupation: Retired Lives: With Family Alcohol Use: None Substance Use Type: None Smoking Status (MU): Never Smoked Tobacco Type: Cigarettes Have You Smoked in the Last Year: Yes - Immunization History Most Recent Influenza Vaccination: 2015 Most Recent Tetanus Shot: UNKNOWN Most Recent Pneumonia Vaccination: 2015 Review of Systems All Other Systems Reviewed And Are Negative: Yes Constitutional: Positive: Chills, Other - body ahces Skin: Positive: Negative Eyes: Positive: Negative ENT: Positive: Sore Throat, Nasal Discharge - clear, Sinus Congestion Respiratory: Positive: Negative, Shortness Of Breath Gastrointestinal: Positive: Negative Genitourinary: Positive: Negative Motor: Positive: Negative Neurovascular: Positive: Negative Musculoskeletal: Positive: Negative Neurological: Positive: Negative Psychological: Positive: Negative Is Patient Immunocompromised?: No Physical Exam - Summary Physical Exam Summary: VITAL SIGNS: Reviewed. GENERAL: Patient is a well developed and nourished male who is sitting comfortable in the examining table. Patient is not in any acute respiratory distress. HEAD AND FACE: No signs of trauma. No ecchymosis, hematomas or skull depressions. No sinus tenderness. EYES: PERRLA, EOMI x 2, No injected conjunctiva, no nystagmus. No photophobia. EARS: Hearing grossly intact. Ear canals and tympanic membranes are within normal limits. Nose: edematous and erythematous nasal mucosa w/ clear nasal discharge. MOUTH: Positive no erythema, no tonsillar enlargement. Uvula in midline. NECK: Supple, trachea is midline, Positive anterior cervical lymphadenopathy, no JVD, no carotid bruit, no c-spine tenderness, neck with full ROM. No meningeal signs, no Kernig's or brudzinskis signs. CHEST: Symmetric, no tenderness at palpation LUNGS: Clear to auscultation bilaterally. No wheezing or crackles. CVS: Regular rate and rhythm, S1 and S2 present, no murmurs or gallops appreciated. ABDOMEN: Soft, non-tender. No signs of distention. No rebound no guarding, and no masses palpated. Bowel sounds are normal. EXTREMITIES: FROM in all major joints, no edema, no cyanosis or clubbing. NEURO: Alert and oriented x 3. No acute neurological deficits. Speech is normal and follows commands. SKIN: Dry and warm Triage Information Reviewed: Yes Vital Signs: Initial Vital Signs Temp 98.4 F 10/13/18 17:55 Pulse 68 10/13/18 17:55 Resp 16 10/13/18 17:55 BP 145/88 10/13/18 17:55 Pulse Ox 97 10/13/18 17:55 Throat Pain/Nasal Course/Dx - Course Course Of Treatment: 68 y/o male presents to the urgent care c/o body aches, fatigue, nasal congestion w/ clear nasal discharge w/ mild sore throat since yesterday. Pt reports pain w/ swallowing is 4/10. He has not taking anything to alleviate symptoms. Pt denies fever, SALAZAR, cough, SOB, chest pain, abdominal pain , N/V/D. Hx obtained. Pt w/ URI on examination. RApid stre=negative, Influenza A&B=negative. Pt advised to increase fluid intake, rest and eat well, advised to take Tylenol PO to alleviate symptoms. Pt's BP is elevated today advised to decrease salt in diet, monitor BP and f/u with PCP for further management. Pt understood and agreed with D/C instructions. - Differential Dx/Diagnosis Differential Diagnosis/HQI/PQRI: Laryngitis, Mononucleosis, Pharyngitis, Tonsillitis, URI, Other Provider Diagnosis: Upper respiratory infection, Uncontrolled hypertension Discharge - Sign-Out/Discharge Documenting (check all that apply): Patient Departure - d/c home All imaging exams completed and their final reports reviewed: No Studies - Discharge Plan Condition: Stable Disposition: HOME Patient Education Materials: Upper Respiratory Infection (ED), Low-Sodium Diet (ED) Referrals: Pascual Moyer MD [Primary Care Provider] - 3 Days Additional Instructions: 1-Please take Tylenol PO q6-8hrs prn as instructed after meals to alleviate pain and swelling. Increase fluid intake, eat well, rest and avoid strenuous exercise 2-If symptoms do not improve or worsen please return to the urgent care or f/u with your PCP in 3 days for further evaluation and treatment. 3- Your BP is elevated today. please decrease salt in your diet, monitor BP and if it continues to be elevated please f/u with your PCP for further management - Billing Disposition and Condition Condition: STABLE Disposition: Home
== END 2018-10-13 19:08 | disposition home or self-care (01) ==
LOC: UCEAST 17:48
DX: J06.9 Acute upper respiratory infection, unspecified (principal); I10 Essential (primary) hypertension; J45.909 Unspecified asthma, uncomplicated; Z88.8 Allergy status to other drugs, medicaments and biological substances; Z91.048 Other nonmedicinal substance allergy status
CPT/HCPCS: 87651; 99211; G0463

== ENCOUNTER 2019-06-16 17:37 | Emergency (ER) | payer MEDICARE, OTHER ==
[2019-06-16 18:04] VITALS: BP 137/83
--- NOTE | 2019-06-16 18:13 | UC ---
Skin Complaint HPI - HPI Summary HPI Summary: Mr. Nguyễn is uncertain of the mechanism but thinks he may have pinched his volar left third finger when using pliers about 2 weeks ago. He's continued to have pain and a full feeling in the finger in spite of using different topical antibiotics and including Bactroban. - History of Current Complaint Chief Complaint: UCLaceration Time Seen by Provider: 06/16/19 17:45 Stated Complaint: LT MID.FINGER INJURY Pain Intensity: 1 - Allergy/Home Medications Allergies/Adverse Reactions: Allergies Allergy/AdvReac Type Severity Reaction Status Date / Time mold Allergy Eyes Verified 06/16/19 18:02 Itchy/Swollen/Red/Watery simvastatin [From Zocor] Allergy Fatigue Verified 06/16/19 18:02 PMH/Surg Hx/FS Hx/Imm Hx Cardiovascular History: Hypertension, Deep Vein Thrombosis Respiratory History: Pulmonary Embolism GI/ History: Other - Pancreatitis Other History Of: Hepatitis B Comment Only: Anticoagulant Therapy - 325 mg asa bedtime, 81mg asa am - Surgical History Surgical History: Yes Surgery Procedure, Year, and Place: Prostatectomy, 2001, [facility], Prostate [place]. Deviated Spetum Repair. Lymph Node Removed from Left Neck. Hernia Repair AND MALCOM FUNDOPLICATION - 2005 stomach rupture with surgery 2014. SURGERY FOR PERFORATED STOMACH /ULCERATIVE- 2014. Lt THUMB - LACERATED FROM SAW - REATTACHED TENDON - Family History Known Family History: Positive: Cardiac Disease, Hypertension, Other - Brain CA - Social History Alcohol Use: None Substance Use Type: None Smoking Status (MU): Never Smoked Tobacco Type: Cigarettes Have You Smoked in the Last Year: Yes - Immunization History Most Recent Influenza Vaccination: 2014 Most Recent Tetanus Shot: UNKNOWN Most Recent Pneumonia Vaccination: 2014 Review of Systems All Other Systems Reviewed And Are Negative: Yes Physical Exam - Summary Physical Exam Summary: He is nontoxic in appearance with stable vital signs Triage Information Reviewed: Yes Appearance: Well-Appearing Vital Signs: Initial Vital Signs Temp 99.7 F 06/16/19 18:02 Pulse 75 06/16/19 18:02 Resp 18 06/16/19 18:02 BP 137/83 06/16/19 18:02 Pulse Ox 97 06/16/19 18:02 Vital Signs Reviewed: Yes Musculoskeletal Exam: Normal Neurological Exam: Normal Psychological Exam: Normal Skin Exam: Other - His finger is mildly tender volarly between the PIP and the DIP. There is no open wound. Course/Dx - Course Course Of Treatment: It is possible that there is an infection. There is no visible sign of it. I' m not sure why he continued to have pain 2 weeks out otherwise. I will try giving him some antibiotic and if it does not resolve he may need to see a hand doc. - Diagnoses Provider Diagnosis: Wound infection Discharge - Sign-Out/Discharge Documenting (check all that apply): Patient Departure All imaging exams completed and their final reports reviewed: No Studies - Discharge Plan Condition: Stable Disposition: HOME Patient Education Materials: Wound Infection (ED) Referrals: Pascual Moyer MD [Primary Care Provider] - Additional Instructions: If this does not clear up he may need to see a hand specialist. Follow-up with Dr. Moyer if not improved in 3-4 days. - Billing Disposition and Condition Condition: STABLE Disposition: Home
== END 2019-06-16 18:21 | disposition home or self-care (01) ==
LOC: UCEAST 17:37
DX: S61.213A Laceration without foreign body of left middle finger without damage to nail, initial encounter (principal); L08.9 Local infection of the skin and subcutaneous tissue, unspecified; W23.0XXA Caught, crushed, jammed, or pinched between moving objects, initial encounter; Y92.9 Unspecified place or not applicable; I10 Essential (primary) hypertension; Z86.718 Personal history of other venous thrombosis and embolism; Z86.711 Personal history of pulmonary embolism; Z79.82 Long term (current) use of aspirin; Z85.46 Personal history of malignant neoplasm of prostate
CPT/HCPCS: 99212; G0463

== ENCOUNTER 2019-07-01 09:13 | Emergency (ER) | payer MEDICARE, OTHER ==
--- OUTSIDE RECORDS SUMMARY | 2019-07-01 09:44 | XMS REPORT | Continuity of Care Document ---
:1950 External Reference #:[id number] Author Name ADELFO Brooks (transmitted by agent of provider Deidre Plaza) Address [address] [place] [address] Care Team Providers Name Role Phone Pascual Moyer MD - Family Care Team Information Cardiac Care Nurse [phone] Medicine Problems Active Problems Provider Date Uncomplicated moderate persistent Pricilla S. Fenstermacher, RPA-C Onset: 2015 asthma Dyspnea Pricilla S. Fenstermacher, RPA-C Onset: 02/19/2016 Exacerbation of moderate persistent Pricilla S. Fenstermacher, RPA-C Onset: asthma Posterior rhinorrhea Pricilla S. Fenstermacher, RPA-C Onset: 10/17/2016 Acute bronchitis with bronchospasm Pricilla S. Fenstermacher, RPA-C Onset: 01/02 Uncomplicated moderate persistent Pricilla S. Fenstermacher, RPA-C Onset: 2016 asthma Exacerbation of moderate persistent Pricilla S. Fenstermacher, RPA-C Onset: 12/2016 asthma Allergic rhinitis Pricilla S. Fenstermacher, RPA-C Onset: 01/30/2017 Allergic rhinitis due to pollen Pricilla S. Fenstermacher, RPA-C Onset: 2016 Viremia Samson Baez MD Onset: 11/29/2017 Social History Type Date Description Comments Sex Unknown Tobacco Use Start: Unknown Patient has never smoked Tobacco Use Start: Unknown No Second Hand Smoke Exposure Smoking Status Reviewed: 01/30/19 No Second Hand Smoke Exposure Allergies, Adverse Reactions, Alerts Active Allergies Reaction Severity Comments Date Zocor 07/10/2013 Medications Active Medications SIG Qnty Indications Ordering Date Provider Qvar Redihaler 2 puffs twice a 31.8gm [facility] rinse mouth [facility] 8 80mcg/Act Aerosol after use. Nasonex 2 intranasal puffs 34gm J30.1 [facility]. 50mcg/Act each nostril twice MD [facility] 8 Suspension a day Montelukast Sodium take 1 tablet by 90tabs J45.40 [facility]. 10mg mouth once daily MD [facility] 7 Tablets in the evening Levocetirizine take one tablet by 90tabs J30.89 [facility]. Dihydrochloride mouth once daily MD [facility] 7 5mg at bedtime. Tablets Albuterol Sulfate inhale 3 2boxes J98.01 [facility]. milliliters (2.5 MD [facility] 7 (2.5mg/3ML) 0.083% mg) by Nebulizer nebulization route q4 hours as needed. Aerochamber Plus Use aerochamber as 1units J45.40 [facility] 7 inhalers. Xopenex HFA inhale 2 puffs by 1inhaler J45.40 [facility] A. 45mcg/Act inhalation route MD [facility] 6 Aerosol every 4-6 hours as needed Lisinopril take 1 tablet (40 Unknown 40mg Tablets mg) by oral route 0 once daily Nexium 1 by mouth twice a Unknown 40mg Capsules DR day 0 Multivitamins Unknown Capsules 0 Mirtazapine Unknown 15mg 0 Tablets Lorazepam 1 by mouth three Unknown 1mg Tablets times a day 0 Mometasone Furoate instill 2 sprays Unknown into each nostril 0 50mcg/Act Suspension once daily Lorazepam 1 by mouth three Unknown 1mg Tablets times a day 0 Immunizations Description No Information Available Vital Signs Date Vital Result Comment 06/17/2019 1:43pm BP Systolic 156 mmHg BP Diastolic 90 mmHg Height 69 inches 5'9" Heart Rate 89 /min Respiratory Rate 16 /min O2 % BldC Oximetry 99 % 01/30/2019 1:51pm BP Systolic 152 mmHg BP Diastolic 98 mmHg Height 69 inches 5'9" Weight 175.00 lb BMI (Body Mass Index) 25.8 kg/m2 Heart Rate 83 /min Respiratory Rate 18 /min O2 % BldC Oximetry 92 % Results Description No Information Available Procedures Date Code Description Status 01/30/2019 99985 Nitric Oxide Gas Determination Completed 01/30/2019 18364 Nitric Oxide Gas Determination Completed 01/30/2019 39214 Bronchodilation Responsiveness Spirometry Pre/Post Completed Bronchodil Adm 01/30/2019 81042 Bronchodilation Responsiveness Spirometry Pre/Post Completed Bronchodil Adm Medical Devices Description No Information Available Encounters Type Date Location Provider Dx Diagnosis Office Visit 01/30/2019 1:30p [place] ADELFO Brooks J45.41 Moderate persistent asthma with (acute) exacerbation J30.1 Allergic rhinitis due to pollen J30.89 Other allergic rhinitis Assessments Date Code Description Provider 01/30/2019 J45.41 Moderate persistent asthma with (acute) Samson Baez MD exacerbation 01/30/2019 J45.41 Moderate persistent asthma with (acute) ADELFO Brooks exacerbation 01/30/2019 J30.1 Allergic rhinitis due to pollen Samson Baez MD 01/30/2019 J30.1 Allergic rhinitis due to pollen ADELFO Brooks 01/30/2019 J30.89 Other allergic rhinitis Samson Baez MD 01/30/2019 J30.89 Other allergic rhinitis ADELFO Brooks Plan of Treatment Future Appointment(s):08/07/2019 10:00 am - ADELFO Brooks at [place] Functional Status Description No Information Available Mental Status Description No Information Available Referrals Description No Information Available
--- OUTSIDE RECORDS SUMMARY | 2019-07-01 09:44 | XMS REPORT | Continuity of Care Document ---
:1950 External Reference #:[id number] Author Name ADELFO Brooks (transmitted by agent of provider Samson Baez) Address [address] [place] [address] Care Team Providers Name Role Phone Pascual Moyer MD - Family Care Team Information [place] Medicine Problems Active Problems Provider Date Uncomplicated [...] 2016 Viremia Samson Baez MD Onset: 11/29/2017 Allergy to other foods ADELFO Brooks Onset: 06/17/2019 Social History Type Date Description Comments Sex Unknown Tobacco Use Start: Unknown Patient has never smoked Tobacco Use Start: Unknown No Second Hand Smoke Exposure Smoking Status Reviewed: 06/17/19 No Second Hand Smoke Exposure Allergies, Adverse Reactions, Alerts Active Allergies Reaction Severity Comments Date Zocor 07/10/2013 Medications Active Medications SIG Qnty Indications Ordering Date Provider Qvar Redihaler 2 puffs twice a 31.8gm [facility] rinse mouth MD [facility] 8 80mcg/Act Aerosol after use. Nasonex 2 intranasal puffs 34gm J30.1 [facility]. 50mcg/Act each nostril twice MD [facility] 8 Suspension a day Montelukast Sodium take 1 tablet by 90tabs J45.40 [facility]. 10mg mouth once daily MD [facility] 7 Tablets in the evening Levocetirizine take one tablet by 90tabs J30.89 [facility]. Dihydrochloride mouth once daily MD [facility] 7 5mg at bedtime. Tablets Albuterol Sulfate inhale 3 2boxes J98.01 [facility]. milliliters (2.5 MD [facility] 7 (2.5mg/3ML) 0.083% mg) by Nebulizer nebulization route q4 hours as needed. Aerochamber Plus Use aerochamber as 1units J45.40 [facility] directed with your MD [facility] 7 inhalers. Xopenex HFA inhale 2 puffs by 1inhaler J45.40 [facility]. 45mcg/Act inhalation route MD [facility] 6 [...] O2 % BldC Oximetry 92 % Results Test Date Facility Test Result H/L Range Note Laboratory test 06/17/2019 [facility] <pending> finding [address] [place] [address] [phone] Order 06/17/2019 [facility] <pending> Procedures Date Code Description Status 01/30/2019 52170 Nitric Oxide Gas Determination Completed 01/30/2019 43432 Nitric Oxide Gas Determination Completed 01/30/2019 04168 Bronchodilation Responsiveness Spirometry Pre/Post Completed Bronchodil Adm 01/30/2019 72467 Bronchodilation Responsiveness Spirometry Pre/Post Completed Bronchodil Adm Medical Devices Description No Information Available Encounters Type Date Location Provider Dx Diagnosis Office Visit 06/17/2019 1:30p ADELFO Montiel J30.1 Allergic rhinitis due to pollen J30.89 Other allergic rhinitis J45.40 Moderate persistent asthma, uncomplicated Z91.018 Allergy to other foods Office Visit 01/30/2019 1:30p ADELFO Montiel J45.41 Moderate persistent asthma with (acute) exacerbation J30.1 Allergic rhinitis due to pollen J30.89 Other allergic rhinitis Assessments Date Code Description Provider 06/17/2019 J30.1 Allergic rhinitis due to pollen ADELFO Brooks 06/17/2019 J30.89 Other allergic rhinitis ADELFO Brooks 06/17/2019 J45.40 Moderate persistent asthma, uncomplicated ADELFO Brooks 06/17/2019 Z91.018 Allergy to other foods ADELFO Brooks 01/30/2019 J45.41 Moderate persistent asthma with (acute) Samson Baez MD exacerbation 01/30/2019 J45.41 Moderate persistent asthma with (acute) ADELFO Brooks exacerbation 01/30/2019 J30.1 Allergic rhinitis due to pollen Samson Baez MD 01/30/2019 J30.1 Allergic rhinitis due to pollen ADELFO Brooks 01/30/2019 J30.89 Other allergic rhinitis Samson Baez MD 01/30/2019 J30.89 Other allergic rhinitis ADELFO Brooks Plan of Treatment Future Appointment(s):07/04/2019 1:00 pm - [facility]FO [facility] at [id number] 10:00 am - ADELFO Brooks at [id number]/17/2019 - ADELFO BrooksJ30.1 Allergic rhinitis due to uxczbtB43.89 Other allergic qjidkylnB39.40 Moderate persistent asthma, elqpyovwdmfwoL63.018 Allergy to other foodsComments:Patient with possible allergy to tree nuts and/or peanuts. Patient will continue to strictly avoid peanuts and tree nuts pending results of RAST testing. We will test for peanuts, almonds, hazelnut, pecan, pine nut, walnut, Leary nut, macadamia, pistachio and cashew. Patient will follow-up with this office in 2 weeks to go over results. Functional Status Description No Information Available Mental Status Description No Information Available Referrals Description No Information Available
--- NOTE | 2019-07-01 11:35 | ED ---
Lower Extremity - HPI Summary HPI Summary: This patient is a 69-year-old male presenting to the ED with pain to the hamstring of the right leg. He states he has injured this many many years ago, however has not constant pain until the last year. Over the past year, the pain is been intermittent, only at bedtime and denies any pain during the day. Denies any pain worse with walking. Denies any history of blood clots. He takes no anticoagulation medications. He does take magnesium in the morning, but nothing at night. He states he came in today because he was worried for a DVT. Denies any pain currently. - History of Current Complaint Chief Complaint: EDExtremityLower Stated Complaint: POSS BLOOD CLOT IN LEG PER PT Time Seen by Provider: 07/01/19 09:25 Hx Obtained From: Patient Onset/Duration: Still Present Severity Initially: Mild Severity Currently: None Pain Intensity: 0 Pain Scale Used: 0-10 Numeric Timing: Constant Location: Is Discrete @ - right hamsting pain Associated Signs And Symptoms: Positive: Negative. Negative: Swelling, Redness , Bruising Aggravating Factor(s): Standing, Ambulation Able to Bear Weight: Yes - Risk Factors Gout Risk Factors: Negative DVT Risk Factors: Negative - Allergies/Home Medications Allergies/Adverse Reactions: Allergies Allergy/AdvReac Type Severity Reaction Status Date / Time mold Allergy Eyes Verified 07/01/19 09:18 Itchy/Swollen/Red/Watery simvastatin [From Zocor] Allergy Fatigue Verified 07/01/19 09:18 PMH/Surg Hx/FS Hx/Imm Hx Previously Healthy: Yes Endocrine/Hematology History: Denies: Hx Diabetes, Hx Thyroid Disease Comment Only: Hx Anticoagulant Therapy - 325 mg asa bedtime, 81mg asa am Cardiovascular History: Reports: Hx Hypercholesterolemia, Hx Hypertension Denies: Hx Pacemaker/ICD Respiratory History: Reports: Hx Asthma, Hx Pulmonary Embolism - Aug 2015, Hx Sleep Apnea, Other Respiratory Problems/Disorders - LT PLEURAL EFFUSION 07/2015/ TUBE PLACEMENT GI History: Reports: Hx Gastroesophageal Reflux Disease History: Reports: Hx Renal Disease - CYST, RT KIDNEY, Other Problems/ Disorders - cyst right kidney, prostate CA Musculoskeletal History: Reports: Hx Arthritis Sensory History: Reports: Hx Contacts or Glasses, Hx Vision Problem - near sighted, Hx Hearing Aid - DOESN'T WEAR, Hx Hearing Problem Opthamlomology History: Reports: Hx Contacts or Glasses, Hx Vision Problem - near sighted Psychiatric History: Denies: Hx Panic Disorder, Hx Substance Abuse - Cancer History Cancer Type, Location and Year: PROSTATE Hx Chemotherapy: No Hx Radiation Therapy: No - Surgical History Surgery Procedure, Year, and Place: Prostatectomy, 2001, [facility], Prostate CA. Deviated Spetum Repair. Lymph Node Removed from Left Neck. Hernia Repair AND MALCOM FUNDOPLICATION - 2005 stomach rupture with surgery 2014. SURGERY FOR PERFORATED STOMACH /ULCERATIVE- 2014. Lt THUMB - LACERATED FROM SAW - REATTACHED TENDON Hx Anesthesia Reactions: No - Immunization History Date of Tetanus Vaccine: 2011 Date of Influenza Vaccine: 06/15 Hx Pertussis Vaccination: No Immunizations Up to Date: Yes Infectious Disease History: No Infectious Disease History: Reports: Hx Hepatitis - Hepatitis B, Hx Shingles Denies: Traveled Outside the [place] in Last 30 Days - Family History Known Family History: Positive: Cardiac Disease, Hypertension, Other - Brain CA - Social History Occupation: Unemployed Lives: With Family Alcohol Use: None Hx Substance Use: No Substance Use Type: Reports: None Hx Tobacco Use: No Smoking Status (MU): Never Smoked Tobacco Type: Cigarettes Have You Smoked in the Last Year: Yes Review of Systems Constitutional: Negative Negative: Fever, Chills, Fatigue, Skin Diaphoresis Negative: Palpitations, Chest Pain Negative: Shortness Of Breath, Cough Genitourinary: Negative Positive: no symptoms reported, see HPI Positive: Arthralgia, Myalgia - right posterior leg/hamstring pain Skin: Negative Neurological: Negative All Other Systems Reviewed And Are Negative: Yes Physical Exam Triage Information Reviewed: Yes Vital Signs On Initial Exam: Initial Vitals Temp Pulse Resp BP Pulse Ox 98.7 F 60 16 136/101 97 07/01/19 09:15 07/01/19 09:15 07/01/19 09:15 07/01/19 09:15 07/01/19 09:15 Vital Signs Reviewed: Yes Appearance: Positive: Well-Appearing, No Pain Distress Skin: Positive: Warm, Skin Color Reflects Adequate Perfusion Head/Face: Positive: Normal Head/Face Inspection Eyes: Positive: EOMI, MIGUEL, Conjunctiva Clear Neck: Positive: Supple, No Lymphadenopathy Respiratory/Lung Sounds: Positive: Clear to Auscultation Cardiovascular: Positive: RRR, Pulses are Symmetrical in both Upper and Lower Extremities Musculoskeletal: Positive: Pain @ - right posterior leg/hamstring area Neurological: Positive: Sensory/Motor Intact, Alert, Oriented to Person Place, Time, Speech Normal Psychiatric: Positive: Affect/Mood Appropriate Diagnostics - Vital Signs Vital Signs Temp Pulse Resp BP Pulse Ox 07/01/19 10:00 50 96 07/01/19 09:55 54 118/64 96 07/01/19 09:26 58 96 07/01/19 09:24 59 144/80 95 07/01/19 09:15 98.7 F 60 16 136/101 97 - Laboratory Lab Statement: Any lab studies that have been ordered have been reviewed, and results considered in the medical decision making process. Lower Extremity Course/Dx - Course Course Of Treatment: During his course of treatment, the patient is evaluated for right-sided posterior leg/hamstring pain. This is not worse with ambulation or better with rest. He states the symptoms are only present upon sleeping, intermittent and present for the past year. DVT US obtained and is negative for clot. He is encouraged magnesium at bedtime, heat to the area and gentle stretches. - Diagnoses Differential Diagnosis/HQI/PQRI: Positive: Sprain, Strain Provider Diagnoses: Muscle strain Discharge ED - Sign-Out/Discharge Documenting (check all that apply): Patient Departure Patient Received Moderate/Deep Sedation with Procedure: No - Discharge Plan Condition: Good Disposition: HOME Patient Education Materials: Leg Cramps (ED) Referrals: Pascual Moyer MD [Primary Care Provider] - Additional Instructions: As discussed, some things that may help with her symptoms, take magnesium citrate 400 mg at bedtime Also moist heat to the area when you wake up and right before bed Also do gentle stretches that we discussed - Billing Disposition and Condition Condition: GOOD Disposition: Home
[2019-07-01 11:51] VITALS: BP 125/69
== END 2019-07-01 11:40 | disposition home or self-care (01) ==
LOC: ED 09:13
DX: S86.911A Strain of unspecified muscle(s) and tendon(s) at lower leg level, right leg, initial encounter (principal); X58.XXXA Exposure to other specified factors, initial encounter; Y92.9 Unspecified place or not applicable; E78.00 Pure hypercholesterolemia, unspecified; I10 Essential (primary) hypertension; J45.909 Unspecified asthma, uncomplicated; K21.9 Gastro-esophageal reflux disease without esophagitis; Z79.82 Long term (current) use of aspirin; Z79.899 Other long term (current) drug therapy; Z88.8 Allergy status to other drugs, medicaments and biological substances
CPT/HCPCS: 99282

== ENCOUNTER 2019-07-23 14:18 | Emergency (ER) | payer MEDICARE, OTHER ==
--- OUTSIDE RECORDS SUMMARY | 2019-07-23 14:24 | XMS REPORT | Continuity of Care Document ---
:1950 External Reference #:[id number] Author Name ADELFO Brooks (transmitted by agent of provider Lida Marr) Address [address] [place] [address] Care Team Providers Name Role Phone Pascual Moyer MD - Family Care Team Information [employer] [phone] Medicine Problems Active Problems Provider Date Uncomplicated [...] Qvar Redihaler 2 puffs twice a 31.8gm [facility] A. day. rinse mouth MD [facility] 8 80mcg/Act Aerosol after use. Nasonex 2 intranasal puffs 34gm J30.1 [facility] A. 50mcg/Act each nostril twice MD [facility] 8 Suspension a day Montelukast Sodium take 1 tablet by 90tabs J45.40 [facility] A. 10mg mouth once daily MD [facility] 7 Tablets in the evening Levocetirizine take one tablet by 90tabs J30.89 [facility] A. Dihydrochloride mouth once daily MD [facility] 7 5mg at bedtime. Tablets Albuterol Sulfate inhale 3 2boxes J98.01 [facility] A. milliliters (2.5 MD [facility] 7 (2.5mg/3ML) 0.083% mg) by Nebulizer nebulization route q4 hours as needed. Aerochamber Plus Use aerochamber as 1units J45.40 [facility] with [facility] MD [facility] 7 inhalers. Xopenex HFA inhale 2 puffs by 1inhaler J45.40 [facility] A. 45mcg/Act inhalation route MD [facility] 6 [...] Available Vital Signs Date Vital Result Comment 07/04/2019 1:07pm BP Systolic 142 mmHg BP Diastolic 70 mmHg Height 69 inches 5'9" Weight 175.00 lb BMI (Body Mass Index) 25.8 kg/m2 Heart Rate 77 /min Respiratory Rate 18 /min O2 % BldC Oximetry 98 % 06/17/2019 1:43pm BP Systolic 156 mmHg BP Diastolic 90 mmHg Height 69 inches 5'9" Heart Rate 89 /min Respiratory Rate 16 /min O2 % BldC Oximetry 99 % Results Test Date Facility Test Result H/L Range Note Order 06/17/2019 [facility] <pending> Procedures Date Code Description Status 01/30/2019 92709 Nitric Oxide Gas Determination Completed 01/30/2019 61069 Nitric Oxide Gas Determination Completed 01/30/2019 54552 Bronchodilation Responsiveness Spirometry Pre/Post Completed Bronchodil Adm 01/30/2019 02475 Bronchodilation Responsiveness Spirometry Pre/Post Completed Bronchodil Adm [...] 06/17/2019 J30.1 Allergic rhinitis due to pollen Samson Baze MD 06/17/2019 J30.1 Allergic rhinitis due to pollen ADELFO Brooks 06/17/2019 J30.89 Other allergic rhinitis Samson Baez MD 06/17/2019 J30.89 Other allergic rhinitis ADELFO Brooks 06/17/2019 J45.40 Moderate persistent asthma, uncomplicated Samson Baez MD 06/17/2019 J45.40 Moderate persistent asthma, uncomplicated ADELFO Brooks 06/17/2019 Z91.018 Allergy to other foods Samson Baez MD 06/17/2019 Z91.018 Allergy to other foods ADELFO [...] Appointment(s):08/07/2019 10:00 am - ADELFO Brooks at [place] Functional Status Description No Information Available Mental Status Description No Information Available Referrals Description No Information Available
--- OUTSIDE RECORDS SUMMARY | 2019-07-23 14:24 | XMS REPORT | Continuity of Care Document ---
:1950 External Reference #:[id number] Author Name ADELFO Brooks (transmitted by agent of provider Samson Baez) Address [address] [place] [address] Care Team Providers Name Role Phone Pascual Moyer MD - Family Care Team Information Tobacco Conditioner [phone] Medicine Problems Active Problems Provider Date Uncomplicated moderate persistent Rpicilla S. Fenstermacher, RPA-C Onset: 2015 asthma Dyspnea [...] Second Hand Smoke Exposure Smoking Status Reviewed: 07/04/19 No Second Hand Smoke Exposure Allergies, Adverse Reactions, Alerts Active Allergies Reaction Severity Comments Date Zocor 07/10/2013 Medications Active Medications SIG Qnty Indications Ordering Date Provider Qvar Redihaler 2 puffs twice a 31.8gm [facility] day[facility] rinse mouth MD [facility] 8 80mcg/Act Aerosol after use. Nasonex 2 intranasal puffs 34gm J30.1 [facility]. 50mcg/Act each nostril twice MD [facility] 8 Suspension a day Montelukast Sodium take 1 tablet by 90tabs J45.40 [facility]. 10mg mouth once daily MD [facility] 7 Tablets in the evening Levocetirizine take one tablet by 90tabs J30.89 [facility]. Dihydrochloride mouth once daily MD [facility] 7 5mg at bedtime. Tablets Albuterol Sulfate inhale 3 2boxes J98.01 [place] A. milliliters (2.5 MD [facility] 7 (2.5mg/3ML) 0.083% mg) by Nebulizer nebulization route q4 hours as needed. Aerochamber Plus Use aerochamber as 1units J45.40 [place] [facility]. [facility] directed with your MD [facility] 7 inhalers. Xopenex HFA inhale 2 puffs by 1inhaler J45.40 [facility]. 45mcg/Act inhalation route MD [facility] 6 [...] Test Result H/L Range Note Order 06/17/2019 [facility] <pending> Procedures Date Code Description Status 01/30/2019 06275 Nitric Oxide Gas Determination Completed 01/30/2019 24412 Nitric Oxide Gas Determination Completed 01/30/2019 22076 Bronchodilation Responsiveness Spirometry Pre/Post Completed Bronchodil Adm 01/30/2019 52632 Bronchodilation Responsiveness Spirometry Pre/Post Completed Bronchodil Adm Medical Devices Description No Information Available Encounters Type Date Location Provider Dx Diagnosis Office Visit 07/04/2019 1:00p ADELFO [place] J30.1 Allergic rhinitis due to pollen J30.89 Other allergic rhinitis J45.40 Moderate persistent asthma, uncomplicated Z91.018 Allergy to other foods Office Visit 06/17/2019 1:30p ADELFO Montiel J30.1 Allergic rhinitis due to pollen J30.89 Other allergic rhinitis J45.40 Moderate persistent asthma, uncomplicated Z91.018 Allergy to other foods Office Visit 01/30/2019 1:30p ADELFO Montiel J45.41 Moderate persistent asthma with (acute) exacerbation J30.1 Allergic rhinitis due to pollen J30.89 Other allergic rhinitis Assessments Date Code Description Provider 07/04/2019 J30.1 Allergic rhinitis due to pollen ADELFO Brooks 07/04/2019 J30.89 Other allergic rhinitis ADELFO Brooks 07/04/2019 J45.40 Moderate persistent asthma, uncomplicated ADELFO Brooks 07/04/2019 Z91.018 Allergy to other foods ADELFO Brooks 06/17/2019 J30.1 Allergic rhinitis due to pollen Samson Baez MD 06/17/2019 J30.1 Allergic rhinitis due to [...] Appointment(s):08/07/2019 10:00 am - ADELFO Brooks at [facility]/04/2019 - ADELFO BrooksJ30.1 Allergic rhinitis due to wkbvjsU88.89 Other allergic aqviwgygH11.40 Moderate persistent asthma, lsnckmbxmwnbjE39.018 Allergy to other foodsComments:Patient RAST tested negative to peanuts, almonds, hazelnut, pecans, Pind, walnut, and Ponder nut, macadamia nut, pistachio and cashew. Patient is not allergic to peanuts or tree nuts. Patient can therefore consume peanuts and tree nuts. Patient to discontinue use of Xyzal every evening. Patient has had no nasal congestion or nasal discharge or postnasal drip to warrant use of Xyzal daily. Patient to continue Qvar (2 puffs in the a.m. and 1 puff in the p.m.) for prophylaxis of his lungs and Xopenex for breakthrough chest symptoms. Patient to continue Nasonex for prophylaxis of his nose. Functional Status Description No Information Available Mental Status Description No Information Available Referrals Description No Information Available
[2019-07-23 14:28] VITALS: BP 126/76
--- NOTE | 2019-07-23 14:42 | UC ---
Hand/Wrist HPI - HPI Summary HPI Summary: 69 yo male sustained a flap laceration to the dorsum of his right index finger while trying to straighten a tufting creeler blade Unsure of last Td He is right handed - History Of Current Complaint Chief Complaint: UCLaceration Stated Complaint: FINGER LACERATION Hx Obtained From: Patient Onset/Duration: Sudden Onset, Lasting Hours Severity Initially: Mild Severity Currently: Mild Pain Intensity: 4 Pain Scale Used: 0-10 Numeric Character Of Pain: Sharp Aggravating Factor(s): Movement Alleviating Factor(s): Compression Associated Signs And Symptoms: Positive: Negative Related History: Dominant Hand Right Hands: 1 - curvilinear flap laceration RIF over dorsum of PIP. - Allergies/Home Medications Allergies/Adverse Reactions: Allergies Allergy/AdvReac Type Severity Reaction Status Date / Time mold Allergy Eyes Verified 07/23/19 14:28 Itchy/Swollen/Red/Watery NSAIDS (Non-Steroidal Allergy See Comment Verified 07/23/19 14:33 Anti-Inflamma simvastatin [From Zocor] Allergy Fatigue Verified 07/23/19 14:28 Home Medications: Home Medications Cholecalciferol (Vitamin D3) [Vitamin D3] 1 tab PO DAILY 07/23/19 [History Confirmed 07/23/19] Magnesium Oxide [Magnesium] 1 tab PO DAILY 07/23/19 [History Confirmed 07/23/19] Multivitamin [Multivitamins] 1 tab PO DAILY 07/23/19 [History Confirmed 07/23/19 ] [place]-3 Fatty Acids/Fish Oil [Fish Oil 1,000 mg Softgel] 1 tab PO DAILY [History Confirmed 07/23/19] Ubidecarenone [Co Q-10] 1 tab PO DAILY 07/23/19 [History Confirmed 07/23/19] PMH/Surg Hx/FS Hx/Imm Hx Previously Healthy: Yes Cardiovascular History: Hypertension Respiratory History: Asthma Cancer History: Prostate Cancer Other History Of: Hepatitis B Comment Only: Anticoagulant Therapy - 325 mg asa bedtime, 81mg asa am - Surgical History Surgical History: Yes Surgery Procedure, Year, and Place: Prostatectomy, 2001, [facility], Prostate CA. Deviated Spetum Repair. Lymph Node Removed from Left Neck. hiatal hernia. Hernia Repair AND MALCOM FUNDOPLICATION - 2005 stomach rupture with surgery 2015. SURGERY FOR PERFORATED STOMACH /ULCERATIVE- 2014. Lt THUMB - LACERATED FROM SAW - REATTACHED TENDON - Family History Known Family History: Positive: Cardiac Disease, Hypertension, Other - Brain CA - Social History Alcohol Use: None Substance Use Type: None Smoking Status (MU): Never Smoked Tobacco Type: Cigarettes Have You Smoked in the Last Year: Yes - Immunization History Most Recent Influenza Vaccination: 2014 Most Recent Tetanus Shot: UNKNOWN Most Recent Pneumonia Vaccination: 2014 Review of Systems All Other Systems Reviewed And Are Negative: Yes Constitutional: Positive: Negative Skin: Positive: Negative Eyes: Positive: Negative ENT: Positive: Negative Respiratory: Positive: Negative Cardiovascular: Positive: Negative Gastrointestinal: Positive: Negative Genitourinary: Positive: Negative Motor: Positive: Negative Neurovascular: Positive: Negative Musculoskeletal: Positive: Negative Neurological: Positive: Negative Psychological: Positive: Negative Physical Exam Triage Information Reviewed: Yes Appearance: Well-Appearing, No Pain Distress, Well-Nourished Vital Signs: Initial Vital Signs Temp 98.9 F 07/23/19 14:23 Pulse 79 07/23/19 14:23 Resp 18 07/23/19 14:23 BP 126/76 07/23/19 14:23 Pulse Ox 97 07/23/19 14:23 Vital Signs Reviewed: Yes Eyes: Positive: Conjunctiva Clear ENT: Positive: Hearing grossly normal. Negative: Nasal congestion, Nasal drainage, Tonsillar swelling, Tonsillar exudate, Hoarse voice Neck: Positive: Supple Respiratory: Positive: Lungs clear, Normal breath sounds, No respiratory distress, No accessory muscle use Cardiovascular: Positive: RRR, No Murmur Neurological Exam: Normal Neurological: Positive: Alert Psychological Exam: Normal Skin Exam: Other - RIF laceration: see image, superficial flap, n/v intact FROM Procedures - Laceration/Wound Repair 1 Location: Other - Right Index Finger Description: Linear Length, Depth and Shape: 2.2 cm long, 1-3 mm deep , curvilinear Betadine Prep?: Yes Irrigated w/ Saline (ccs): 200 Laceration/Wound Explored: clean Closure: Skin Adhesive Hand/Wrist Course/Dx - Course Course Of Treatment: finger (RIF) splinted with PIP in extension - Differential Dx/Diagnosis Provider Diagnosis: Laceration of right index finger Discharge ED - Sign-Out/Discharge Documenting (check all that apply): Patient Departure All imaging exams completed and their final reports reviewed: No Studies - Discharge Plan Condition: Stable Disposition: HOME Patient Education Materials: Skin Adhesive Care (ED) Referrals: Pascual Moyer MD [Primary Care Provider] - If Needed Additional Instructions: keep splint on for 3-4 days may apply a bandaid...no ointment recheck for any concerns call for any questions [phone] - Billing Disposition and Condition Condition: STABLE Disposition: Home
[2019-07-23] MEDS ORDERED: Tetan/Diph/Pertus SYR(Tdap)* 0.5 ML SYR(BOOSTRIX) use SYR IM ONE (14:56)
== END 2019-07-23 15:25 | disposition home or self-care (01) ==
LOC: UCEAST 14:18
DX: S61.210A Laceration without foreign body of right index finger without damage to nail, initial encounter (principal); W28.XXXA Contact with powered lawn mower, initial encounter; Y93.H9 Activity, other involving exterior property and land maintenance, building and construction; Y92.017 Garden or yard in single-family (private) house as the place of occurrence of the external cause; Y99.8 Other external cause status; I10 Essential (primary) hypertension; J45.909 Unspecified asthma, uncomplicated; B19.10 Unspecified viral hepatitis B without hepatic coma; Z79.82 Long term (current) use of aspirin; Z23 Encounter for immunization; Z85.46 Personal history of malignant neoplasm of prostate
CPT/HCPCS: 90471; 90715; 99213; G0463

== ENCOUNTER 2019-07-27 13:35 | Observation (INO) | payer MEDICARE, OTHER ==
[2019-07-27 14:00] LABS: ABS Lymphocytes 1.6 10^3/ul (1.0-4.8); ABS Monocytes 0.7 10^3/ul (0-0.8); ABS Neutrophils 4.5 10^3/ul (1.5-7.7); Eosinophil % 0.6 %; Hematocrit 43 % (42-52); Hemoglobin 14.6 g/dL (14.0-18.0); Lymphocyte % 23.8 %; Mean Corpuscular HGB Conc 34 g/dL (31-36); Mean Corpuscular Hemoglobin 32 pg (27-31); Mean Corpuscular Volume 92 fL (80-94); Mean Platelet Volume 8.3 fL (7.4-10.4); Nucleated Red Blood Cells % 0.2; Platelet Count 233 10^3/uL (150-450); Red Blood Count 4.63 10^6 /uL (4.18-5.48); Red Cell Distribution Width 14 % (10-15); White Blood Count 6.9 10^3/uL (3.5-10.8)
--- NOTE | 2019-07-27 14:00 | ED ---
HPI Chest Pain - HPI Summary HPI Summary: 69 year old male presents to [facility] with a chief complaint of pressure on the left side of the chest starting yesterday when he was raking gravel. He described the pain as similar to heartburn. Pain lasted 3-4 hours. This morning , he was walking for a quarter mile when his heartrate went up to 125 bpm. He felt a mild chest pressure with a pain severity of 2/10. He reports that he does not have any chest pain at present. The patient reports no nausea, vomiting , sweating, clamminess, or dizziness. He has HTN and HLD, but does not have CAD. SHx of smoking. - History of Current Complaint Chief Complaint: EDChestPainROMI Time Seen by Provider: 07/27/19 13:54 Hx Obtained From: Patient Onset/Duration: Started Hours Ago, Resolved Timing: Constant, Lasting Hours Initial Severity: Mild Current Severity: None Pain Intensity: 2 Pain Scale Used: 0-10 Numeric Chest Pain Location: Left Anterior Character: Burning, Pressure/Squeezing Aggravating Factor(s): Exertion Associated Signs and Symptoms: Positive: Chest Pain. Negative: Dizziness, Nausea, Vomiting, Other: - sweating, clamminess - Additional Pertinent History Primary Care Physician: [id number] - Allergy/Home Medications Allergies/Adverse Reactions: Allergies Allergy/AdvReac Type Severity Reaction Status Date / Time mold Allergy Eyes Verified 07/27/19 13:43 Itchy/Swollen/Red/Watery NSAIDS (Non-Steroidal Allergy See Comment Verified 07/27/19 13:43 Anti-Inflamma simvastatin [From Zocor] Allergy Fatigue Verified 07/27/19 13:43 PMH/Surg Hx/FS Hx/Imm Hx Endocrine/Hematology History: Denies: Hx Diabetes, Hx Thyroid Disease Comment Only: Hx Anticoagulant Therapy - 325 mg asa bedtime, 81mg asa am Cardiovascular History: Reports: Hx Hypercholesterolemia, Hx Hypertension Denies: Hx Pacemaker/ICD Respiratory History: Reports: Hx Asthma, Hx Pulmonary Embolism - Aug 2015, Hx Sleep Apnea, Other Respiratory Problems/Disorders - LT PLEURAL EFFUSION 07/2015/ TUBE PLACEMENT GI History: Reports: Hx Gastroesophageal Reflux Disease History: Reports: Hx Renal Disease - CYST, RT KIDNEY, Other Problems/ Disorders - cyst right kidney, prostate CA Musculoskeletal History: Reports: Hx Arthritis Sensory History: Reports: Hx Contacts or Glasses, Hx Vision Problem - near sighted, Hx Hearing Aid - DOESN'T WEAR, Hx Hearing Problem Opthamlomology History: Reports: Hx Contacts or Glasses, Hx Vision Problem - near sighted Psychiatric History: Denies: Hx Panic Disorder, Hx Substance Abuse - Cancer History Cancer Type, Location and Year: PROSTATE Hx Chemotherapy: No Hx Radiation Therapy: No - Surgical History Surgery Procedure, Year, and Place: Prostatectomy, 2001, [facility], Prostate CA. Deviated Spetum Repair. Lymph Node Removed from Left Neck. hiatal hernia. Hernia Repair AND MALCOM FUNDOPLICATION - 2005 stomach rupture with surgery 2014. SURGERY FOR PERFORATED STOMACH /ULCERATIVE- 2014. Lt THUMB - LACERATED FROM SAW - REATTACHED TENDON Hx Anesthesia Reactions: No - Immunization History Date of Tetanus Vaccine: 2011 Date of Influenza Vaccine: 06/15 Infectious Disease History: No Infectious Disease History: Reports: Hx Hepatitis - Hepatitis B, Hx Shingles Denies: Traveled Outside the [place] in Last 30 Days - Family History Known Family History: Positive: Cardiac Disease, Hypertension, Other - Brain CA - Social History Alcohol Use: None Hx Substance Use: No Substance Use Type: Reports: None Hx Tobacco Use: No Smoking Status (MU): Never Smoked Tobacco Type: Cigarettes Have You Smoked in the Last Year: Yes Review of Systems Negative: Skin Diaphoresis Positive: Chest Pain Negative: Vomiting, Nausea Neurological: Negative - dizziness All Other Systems Reviewed And Are Negative: Yes Physical Exam - Summary Physical Exam Summary: VITAL SIGNS: Reviewed. GENERAL: Patient is a well-developed and nourished male who is lying comfortable in the stretcher. Patient is not in any acute respiratory distress. HEAD AND FACE: No signs of trauma. No ecchymosis, hematomas or skull depressions. No sinus tenderness. EYES: PERRLA, EOMI x 2, No injected conjunctiva, no nystagmus. EARS: Hearing grossly intact. Ear canals and tympanic membranes are within normal limits. MOUTH: Oropharynx within normal limits. NECK: Supple, trachea is midline, no adenopathy, no JVD, no carotid bruit, no c- spine tenderness, neck with full ROM. CHEST: Symmetric, no tenderness at palpation. LUNGS: Clear to auscultation bilaterally. No wheezing or crackles. CVS: Regular rate and rhythm, S1 and S2 present, no murmurs or gallops appreciated. ABDOMEN: Soft, non-tender. No signs of distention. No rebound, no guarding, and no masses palpated. Bowel sounds are normal. EXTREMITIES: FROM in all major joints, no edema, no cyanosis or clubbing. NEURO: Alert and oriented x 3. No acute neurological deficits. Speech is normal and follows commands. SKIN: Dry and warm. Triage Information Reviewed: Yes Vital Signs On Initial Exam: Initial Vitals Temp Pulse Resp BP Pulse Ox 99.3 F 93 16 150/79 95 07/27/19 13:39 07/27/19 13:39 07/27/19 13:39 07/27/19 13:39 07/27/19 13:39 Vital Signs Reviewed: Yes Diagnostics - Vital Signs Vital Signs Temp Pulse Resp BP Pulse Ox 07/27/19 13:39 99.3 F 93 16 150/79 95 - Laboratory Result Diagrams: 07/27/19 13:47 07/27/19 13:47 Lab Statement: Any lab studies that have been ordered have been reviewed, and results considered in the medical decision making process. - Radiology CXR Radiology Interpretation Completed By: Radiologist Summary of Radiographic Findings: CXR shows STABLE ELEVATION OF LEFT HEMIDIAPHRAGM. NO ACTIVE CARDIOPULMONARY DISEASE. ED physician has reviewed this report. - EKG 1338 Cardiac Rate: NL - 84 bpm EKG Rhythm: Sinus Rhythm EKG Comparison: No Significant Change - from 06/07/18 Summary of EKG Findings: EKG at 1338 shows normal sinus rhythem at 84 bpm. No acute changes from 06/07/18. This EKG was reviewed and interpreted ED physician. 1752 Cardiac Rate: Bradycardia EKG Rhythm: Sinus Bradycardia EKG Comparison: No Significant Change Summary of EKG Findings: EKG at 1752 shows sinus bradycardia 51 bpm. No STEMI. No significant change from last EKG. An ED physician has reviewed and interpreted this EKG. Re-Evaluation - Re-Evaluation 1st Re-eval Re-Evaluation Time: 18:12 Change: Worse Comment: Patient complains of chest discomfort. I gave him .4 mg nitroglycerin. Chest Pain Course/Dx - Course Assessment/Plan: Patient is a 69-year-old male who presents to the emergency department with a chief complaint of chest pain. Blood test results without any significant abnormality. Troponin is 0.00. Urinalysis is negative for UTI. Chest x-ray impression: STABLE ELEVATION OF LEFT HEMIDIAPHRAGM. No active cardiopulmonary disease. EKG shows a normal sinus rhythm at [address] elevations. Similar to previous EKG done on 06/07/18. Patient is allergic to NSAIDs so he declined aspirin. I held nitroglycerin since the patient chest pain is not present at this time. Patient developed another episode of chest pain. Therefore, the patient was given nitroglycerin. The heart to score is equal to 5. Therefore I discuss my physical exam and findings with Dr. Ward to from the hospital services who accepted the patient for admission. Patient is hemodynamically stable. - Diagnoses Provider Diagnoses: Chest pain - Provider Notifications Discussed Care Of Patient With: Dennys Ward Time Discussed With Above Provider: 18:27 Instructed by Provider To: Other - Patient's case was discussed with Dr. Ward, Dr. Ward accepts for admission. Discharge ED - Sign-Out/Discharge Documenting (check all that apply): Patient Departure - admit All imaging exams completed and their final reports reviewed: Yes Patient Received Moderate/Deep Sedation with Procedure: No - Discharge Plan Condition: Stable Disposition: ADMITTED TO [facility] - Billing Disposition and Condition Condition: STABLE Disposition: Admitted to [facility] - Attestation Statements Document Initiated by Scribe: Yes Documenting Scribe: AURORA HASTNIGS Provider For Whom Chrissie is Documenting (Include Credential): TOBY VICTORIA MD Scribe Attestation: I, AURORA HASTINGS, scribed for TOBY VICTORIA MD on 07/29/19 at 1113. Scribe Documentation Reviewed: Yes Provider Attestation: The documentation as recorded by the AURORA barbosa accurately reflects the service I personally performed and the decisions made by me, TOBY VICTORIA MD Status of Scribe Document: Viewed
[2019-07-27 14:06] LABS: INR 0.98 (0.82-1.09)
[2019-07-27 14:15] LABS: Albumin 4.3 g/dL (3.2-5.2); Albumin/Globulin Ratio 1.8 (1-3); BUN/Creatinine Ratio 14.8 (8-20); Calcium 9.4 mg/dL (8.6-10.3); EGFR African American 81.6 (>60); EGFR Non-African American 67.4 (>60); Globulin 2.4 g/dL (2-4); Total Bilirubin 0.5 mg/dL (0.2-1.0); Total Protein 6.7 g/dL (6.4-8.9)
[2019-07-27 15:03] LABS: Magnesium 1.9 mg/dL (1.9-2.7)
[2019-07-27 15:08] LABS: CKMB ng/mL 4.2 ng/mL (0.6-6.3)
[2019-07-27 15:26] LABS: Urine Appearance Clear; Urine Bilirubin Negative (Negative); Urine Blood Negative (Negative); Urine Color Straw; Urine Glucose Negative (Negative); Urine Ketones Negative (Negative); Urine Nitrite Negative (Negative); Urine Protein Negative (Negative); Urine Specific Gravity 1.003 (1.010-1.030); Urine Urobilinogen Negative (Negative)
[2019-07-27 15:50] LABS: TSH (Thyroid Stimulating Horm) 1.58 mcIU/mL (0.34-5.60)
[2019-07-27] MEDS ORDERED: Nitroglycerin TAB 0.4 MG* 0.4 MG TAB SL ONE (18:12)
[2019-07-27] MEDS ORDERED: LORazepam TAB(*) 1 MG PO PRN (19:32)
[2019-07-27] MEDS ORDERED: Albuterol 2.5 MG/3 ML NEB.SOL* (0.083%) INH PRN (19:32)
[2019-07-27] MEDS ORDERED: Enoxaparin(*) 40 MG/0.4 ML SYR SUBCUT SCH (20:00)
[2019-07-27] MEDS ORDERED: Mirtazapine TAB* 15 MG PO SCH (21:00)
[2019-07-27] MEDS ORDERED: Mometasone 220 MCG MDI INH SCH (21:00)
[2019-07-27] MEDS: amLODIPine TAB* 5 MG PO SCH (21:33)
[2019-07-27] MEDS ORDERED: Montelukast Sodium TAB* 10 MG PO SCH (22:00)
[2019-07-27] MEDS ORDERED: PTO: Levalbuterol HFA INHALER* 1 PUFF MDI INH PRN (22:04)
[2019-07-27] MEDS: PTO: Beclomethasone 80 MCG MDI(NF) 80 MCG/PUFF MDI INH SCH (22:34)
--- NOTE | 2019-07-27 23:41 | HP ---
CC: Dr. Moyer HISTORY AND PHYSICAL: DATE OF ADMISSION: 07/27/19 CHIEF COMPLAINT: Chest pain. HISTORY OF PRESENT ILLNESS: Mr. Nguyễn is a 69-year-old man who is a good historian. He reports jocy t yesterday after shoveling gravel for only 5 minutes, he developed chest pressure or heaviness that he rates at 3 to 4/10 in intensity. This heaviness lasted for 3 to 4 hours, it was not associated wit h shortness of breath, nausea, diaphoresis, palpitations. The patient thought this chest heaviness w as odd because he normally works out 3 to 4 days a week with a heart monitor and is in very good shap e. He states his basal heart rate is around 45 to 60. Today, he felt weak and was short of breath o ff and on, which he attributed to asthma. He denies any dizziness or chest pain, but just had brief episodes of chest heaviness again that were at times relieved by belching. The patient went for a wa lk and noticed that his heart rate went up to 125 with ambulation. He states that normally at the gy m, his heart rate goes up to about 105 with treadmill. He came to the emergency room because of the above symptoms. PAST MEDICAL HISTORY: Includes asthma that he developed 8 years ago; hypertension; history of pulmon davide embolism in 2014 postop, no longer on anticoagulation; GERD; obstructive sleep apnea, on CPAP; hi story of prostate cancer; history of gastric ulcer; and depression. PAST SURGICAL HISTORY: Exploratory laparotomy for gastric ulcer with sew-over Akil fundoplication, prostatectomy, left inguinal hernia repair. MEDICATIONS ON ADMISSION: 1. Albuterol nebulizer as needed. 2. Vitamin D 1000 units p.o. daily. 3. Dexilant 50 mg p.o. daily. 4. Levalbuterol inhaler 2 puffs q.4 hours p.r.n. wheezing. 5. Xyzal 5 mg p.o. q.p.m. 6. Lisinopril 40 mg p.o. daily. 7. Lorazepam 1 mg p.o. b.i.d. p.r.n. anxiety. 8. Magnesium oxide 250 mg p.o. daily. 9. Mirtazapine 50 mg p.o. q.h.s. 10. Nasonex nasal spray 2 sprays both nostrils daily. 11. Montelukast 10 mg p.o. daily. 12. Multivitamin 1 tab p.o. daily. 13. [place] 3 fatty acids 1 capsule daily. 14. QVAR 80 mcg 2 puffs inhale b.i.d. 15. Coenzyme Q10 300 mg p.o. daily. ALLERGIES: Include SIMVASTATIN and NSAIDs. 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 He is . He has no children. He never smoked. N o alcohol or drug use. FAMILY HISTORY: Notable for half sister who had a stroke and from this. His father had an MS at age 72 and at age 80 of a second massive MS. His mother of brain cancer. REVIEW OF SYSTEMS: The patient denies any fever, anorexia, or weight loss. The patient denies any p alpitations. The patient denies any cough or hemoptysis, but he does admit to some shortness of leticia th off and on that he attributes to asthma. At one time recently, he had low heart rate around 38 and felt shortness of breath from that also. The patient denies any nausea, vomiting, diarrhea, constip ation or abdominal pain. Remainder of his 14-point review of systems was negative other than mention ed in the HPI. PHYSICAL EXAMINATION GENERAL: He is alert, in no acute distress. VITAL SIGNS: Temperature is 37.4, pulse is 56 to 72, respirations 14, blood pressure is 150/87, O2 s at 97%. HEENT: Head: Normocephalic, atraumatic. Sclerae anicteric. Pupils are equal, round, and reactive to light and accommodation. Oropharynx is moist, no lesions. NECK: No JVD, no carotid bruits, no thyromegaly. LUNGS: Clear to auscultation bilaterally. HEART: Bradycardic with no murmurs or gallops. ABDOMEN: Soft, nontender. Positive bowel sounds. No hepatosplenomegaly. EXTREMITIES: No peripheral edema. Dorsalis pedis pulses are 2+ bilaterally. NEUROLOGIC: Cranial nerves II through XII are intact. Motor strength is 5/5 throughout. Deep tendo n reflexes are 3+ and symmetric in lower and upper extremities. DIAGNOSTIC STUDIES/LAB DATA: Sodium 136, potassium 4.0, chloride 104, bicarb 25, BUN 16, creatinine 1.08, glucose 110, calcium 9.4, AST 21, ALT 17, BNP 48, troponin 0.00, repeat troponin 0.00, INR 0.9 8, TSH 1.58, white count 6.9, hemoglobin 14.6, hematocrit 43%, platelet are 233. Urinalysis is negat estiven. EKG shows sinus bradycardia with no ischemic ST or T-wave changes. Chest x-ray shows elevated left h emidiaphragm, which is unchanged from previous. ASSESSMENT AND PLAN: A 69-year-old man presenting with atypical chest pain and negative troponins. The differential would include angina, pulmonary emboli, gastroesophageal reflux disease, pericarditi s, chest wall pain. The patient's HEART score comes under 5, so he should be admitted for observatio n. We will keep him on telemetry and consider stress testing if he is negative for ischemic problems with his troponin or EKG tomorrow. We cannot put him on a beta pippa because of his heart rate, but he can have additional amlodipine to lower his blood pressure somewhat, which may be antianginal in a way. I will check a D-dimer as an initial rule out for pulmonary emboli and he will need a CT angiogram of the chest if he has a positive D-dimer. His code status is full. For DVT prophylaxis, he will have sequential compression devices and Lovenox because of history of PE and the high risk score. Thank you very much. [id number]/[facility] #: [id number]
[2019-07-28] MEDS ORDERED: Pantoprazole TAB * 40 MG TAB PO SCH (09:00)
[2019-07-28] MEDS ORDERED: Lisinopril TAB* 10 MG PO SCH (09:00)
[2019-07-28] MEDS ORDERED: CMCS: OMEGA-3 FATTY ACIDS (NF) 1,000 MG CAP PO SCH (09:00)
[2019-07-28] MEDS ORDERED: Cholecalciferol TAB* 1000 UNITS PO SCH (09:00)
[2019-07-28] MEDS: amLODIPine TAB* 5 MG PO SCH (09:14)
[2019-07-28] MEDS: PTO: Beclomethasone 80 MCG MDI(NF) 80 MCG/PUFF MDI INH SCH (13:00)
[2019-07-28 16:05] VITALS: BP 104/69
--- NOTE | 2019-07-28 21:27 | DS ---
CC: Dr. Moyer * DISCHARGE SUMMARY: DATE OF ADMISSION: 07/27/19 DATE OF DISCHARGE: 07/28/19 PRIMARY DIAGNOSIS: Chest pain, possible musculoskeletal. SECONDARY DIAGNOSES: 1. Suspicion of cardiac angina. 2. Elevated left hemidiaphragm. 3. Gastroesophageal reflux disease. 4. Hypertension. 5. History of hiatal hernia, status post Akil fundoplication. 6. Obstructive sleep apnea, on CPAP. 7. History of pulmonary embolism, postop, not currently anticoagulated. 8. History of prostate cancer, status post prostatectomy. 9. History of gastric ulcer, status post laparoscopy and exploration and sew- over. 10. Major depressive disorder. MEDICATIONS ON DISCHARGE: 1. Albuterol nebulizer as needed. 2. Vitamin D 1000 units p.o. daily. 3. Dexilant 60 mg p.o. daily. 4. Levalbuterol HFA 2 puffs inhaled q.4 hours p.r.n. wheezing. 5. Levocetirizine 5 mg p.o. q.p.m. 6. Lisinopril 40 mg p.o. daily. 7. Lorazepam 1 mg p.o. b.i.d. p.r.n. anxiety. 8. Magnesium oxide 250 mg p.o. daily. 9. Mirtazapine 50 mg p.o. q.h.s. 10. Nasonex nasal spray 2 sprays both nostrils daily. 11. Montelukast 10 mg p.o. daily. 12. Multivitamin 1 tab p.o. daily. 13. Max 3 fatty acids 1 tablet p.o. daily. 14. QVAR 2 inhalations b.i.d. 15. Coenzyme Q10 300 mg p.o. daily. 16. Amlodipine 2.5 mg p.o. daily. HOSPITAL COURSE: A 69-year-old male with risk factors for heart disease including family history of hypertension, presented to the hospital with chest pressure following shoveling gravel at home. The patient had normal EKG and a chest x-ray only notable for elevated left hemidiaphragm. EKG showed sinus bradycardia with no ischemic ST or T-wave changes. EKG on both occasions showed earlier transition. The patient had serial troponins on three occasions which were 0 each time. BNP was 48, TSH 1.58. Electrolytes were normal. CBC was normal. Coagulation studies were negative. D-dimer was less than 200. The patient was admitted to the telemetry floor and had telemetry that showed sinus bradycardia and normal sinus rhythm. No arrhythmias. He had no symptoms on the day after admission of chest pressure. He is ambulatory in the gong[place] without any pain. Because the differential still includes angina versus GERD versus chest wall pain, the patient should have an outpatient stress test. This has been ordered and should be set up tomorrow through the [facility] with results to go to Dr. Moyer. DISPOSITION: To home. STATUS: Observation. CONDITION: Stable. ACTIVITY: As tolerated. DIET: Low salt, low fat. [id number]/[facility] #: [id number] MTDD
== END 2019-07-28 19:15 | disposition home or self-care (01) ==
LOC: ED 13:35 → MEDTELE 19:05
PROVIDERS: ADMIT Internal Medicine; ATTEND Internal Medicine
DX: R07.9 Chest pain, unspecified (principal); J98.6 Disorders of diaphragm; K21.9 Gastro-esophageal reflux disease without esophagitis; I10 Essential (primary) hypertension; Z87.19 Personal history of other diseases of the digestive system; G47.33 Obstructive sleep apnea (adult) (pediatric); Z86.711 Personal history of pulmonary embolism; Z85.46 Personal history of malignant neoplasm of prostate; Z87.11 Personal history of peptic ulcer disease; F32.9 Major depressive disorder, single episode, unspecified; Z79.899 Other long term (current) drug therapy; E78.5 Hyperlipidemia, unspecified; E78.00 Pure hypercholesterolemia, unspecified; N28.9 Disorder of kidney and ureter, unspecified
CPT/HCPCS: 36415; 71045; 80053; 81003; 82550; 82553; 83605; 83735; 83880; 84443; 84484; 85025; 85379; 85610; 93005; 96372; 99285; A9270-GY; G0378; J1650

== ENCOUNTER 2019-09-22 15:10 | Emergency (ER) | payer MEDICARE, OTHER ==
--- OUTSIDE RECORDS SUMMARY | 2019-09-22 15:17 | XMS REPORT | Continuity of Care Document ---
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 31.8gm Samson Alvarez 01/16/20 rinse mouth after MD Arlene Baez 80mcg/Act Aerosol use. Nasonex 2 intranasal puffs 34gm J30.1 Samson Koroma. 11/29/19 50mcg/Act each nostril twice a MD [facility] 18 Suspension day Montelukast Sodium Take 1 Tablet By 90tabs J45.40 Samson Alvarez 03/28/20 Mouth Once Daily In MD [facility] 17 10mg Tablets The Evening Levocetirizine take one tablet by 90tabs J30.89 Samson Alvarez 02/14/20 Dihydrochloride mouth once daily at MD Jose Cruz Baez 5mg bedtime. Tablets Albuterol Sulfate inhale 3 milliliters 2boxes J98.01 Samson Koroma. (2.5 mg) by MD Jose Cruz Baez (2.5mg/3ML) 0.083% nebulization route Nebulizer q4 hours as needed. Aerochamber Plus Use aerochamber as 1units J45.40 Rosendoophkiara Koroma. 01/03/20 directed with your MD [facility] 17 [facility] inhalers. Xopenex HFA inhale 2 puffs by 1inhaler J45.40 Rosendoophkiara A. 02/15/20 45mcg/Act inhalation route MD [facility] 16 Aerosol every 4-6 hours as needed Chlorhexidine Rinse With 10 Unknown Gluconate milliliters by mouth 00 0.12% twice a day -Spit Solution Out Sulfamethoxazole/Tri take 1 tablet by Unknown methoprim DS mouth twice a day 00 800-160mg Tablets Triamcinolone Apply A Thin Film Unknown Acetonide Twice A Day To Itchy 00 0.5% Cream Area Fluzone High-Dose inject 0.5 Unknown milliliters 00 0.5ml Niya intramuscularly Amlodipine Besylate take 1 tablet by Unknown mouth once daily 00 5mg Tablets Lorazepam 1 by mouth three Unknown 1mg Tablets times a day 00 Mometasone Furoate instill 2 sprays 51gm Christopher A. into each nostril MD [facility] 00 50mcg/Act Suspension once daily Lorazepam 1 by mouth three Unknown 1mg Tablets times a day 00 Mirtazapine Unknown 15mg 00 Tablets Multivitamins Unknown 00 Capsules Nexium 1 by mouth twice a Unknown 40mg Capsules day 00 Lisinopril take 1 tablet (40 Unknown 40mg mg) by oral route 00 Tablets once daily Immunizations Description No Information Available Vital Signs Date Vital Result Comment 08/07/2019 10:39am BP Systolic 124 mmHg BP Diastolic 70 mmHg Height 69 inches 5'9" Weight 176.50 lb BMI (Body Mass Index) 26.1 kg/m2 Heart Rate 71 /min Respiratory Rate 18 /min Body Temperature 98.3 F O2 % BldC Oximetry 95 % 08/07/2019 10:39am Body Temperature 98.3 F Results Test Date Facility Test Result H/L Range Note Order 08/07/2019 [facility] Nitric Oxide <pending> PFT Supplies <pending> PFT With Bronchodilator <pending> Order 06/17/2019 [facility] [employer] <pending> Procedures Date Code Description Status 08/07/2019 96036 Nitric Oxide Gas Determination Completed 08/07/2019 55867 Bronchodilation Responsiveness Spirometry Pre/Post Completed Bronchodil Adm Medical Devices Description No Information Available Encounters Type Date Location Provider Dx Diagnosis Office Visit 08/07/2019 10:00a ADELFO Montiel J30.1 Allergic rhinitis due to pollen J30.89 Other allergic rhinitis J45.40 Moderate persistent asthma, uncomplicated Z91.018 Allergy to other foods Office Visit 07/04/2019 1:00p ADELFO Mayberry J30.1 Allergic rhinitis due to pollen J30.89 Other allergic rhinitis J45.40 Moderate persistent asthma, uncomplicated Z91.018 Allergy to other foods Office Visit 06/17/2019 1:30p ADELFO Montiel J30.1 Allergic rhinitis due to pollen J30.89 Other allergic rhinitis J45.40 Moderate persistent asthma, uncomplicated Z91.018 Allergy to other foods Assessments Date Code Description Provider 08/07/2019 J30.1 Allergic rhinitis due to pollen ADELFO Brooks 08/07/2019 J30.89 Other allergic rhinitis ADELFO Brooks 08/07/2019 J45.40 Moderate persistent asthma, uncomplicated ADELFO Brooks 08/07/2019 Z91.018 Allergy to other foods ADELFO Brooks 07/04/2019 J30.1 Allergic rhinitis due to pollen Samson Baez MD 07/04/2019 J30.1 Allergic rhinitis due to pollen ADELFO Brooks 07/04/2019 J30.89 Other allergic rhinitis Samson Baez MD 07/04/2019 J30.89 Other allergic rhinitis ADELFO Brooks 07/04/2019 J45.40 Moderate persistent asthma, uncomplicated Samson Baez MD 07/04/2019 J45.40 Moderate persistent asthma, uncomplicated ADELFO Brooks 07/04/2019 Z91.018 Allergy to other foods Samson Baez MD 07/04/2019 Z91.018 Allergy to other foods ADELFO [...] Z91.018 Allergy to other foods ADELFO Brooks Plan of Treatment Future Appointment(s):02/05/2020 2:00 pm - ADELFO Brooks at [facility]/07/2019 - ADELFO BrooksJ30.1 Allergic rhinitis due to rrayfoF13.89 Other allergic nsimnlavT48.40 Moderate persistent asthma, uncomplicatedComments:Patient's PFT shows moderate obstruction and exhaled nitric oxide is slightly elevated at 28 ppb. Patient to continue Qvar 80, 2 puffs twice daily for prophylaxis of his lungs and Xopenex for breakthrough chest symptoms. Patient to continue Nasonex , one puff twice a day for prophylaxis of his nose and Xyzal for breakthrough nasal symptoms. Patient to continue Singulair as prescribed. Saline nasalrinse and HEPA air filter may help decrease allergens.Follow up:6 months, PFT and NIOX qckztQ47.018 Allergy to other foods Functional Status Description No Information Available Mental Status Description No Information Available Referrals Description No Information Available
--- OUTSIDE RECORDS SUMMARY | 2019-09-22 15:17 | XMS REPORT | Continuity of Care Document ---
:1950 External Reference #:[id number] Author Name ADELFO Brooks (transmitted by agent of provider Marina Aquino) Address [address] [place] [address] Care Team Providers Name Role Phone Pascual Moyer MD - Family Care Team Information Chief Librarian Circulation Department [phone] Medicine Problems Active Problems Provider Date Uncomplicated [...] Samson Alvarez 01/16/20 rinse mouth after MD [facility] 18 80mcg/Act Aerosol use. Nasonex 2 intranasal puffs [...] Sulfate inhale 3 milliliters 2boxes J98.01 Samson Alvarez (2.5 mg) by MD [facility] 17 (2.5mg/3ML) 0.083% nebulization route Nebulizer q4 hours as needed. Aerochamber Plus Use aerochamber as 1units J45.40 Rosendoophkiara Koroma. 01/03/20 directed with your MD [facility] 17 [facility] inhalers. Xopenex HFA inhale 2 puffs by [...] 00 Mometasone Furoate instill 2 sprays 51gm Samson Alvarez into each nostril MD [facility] 50mcg/Act Suspension once daily Lorazepam 1 by mouth three Unknown 1mg Tablets times a day 00 Mirtazapine Unknown 15mg 00 Tablets Multivitamins Unknown 00 Capsules Nexium 1 by mouth twice a Unknown 40mg Capsules day Lisinopril take 1 tablet (40 Unknown 40mg [...] [facility] [employer] <pending> Procedures Description No Information Available Medical Devices Description No Information Available Encounters [...] other foods Assessments Date Code Description Provider 07/04/2019 J30.1 [...] other foods ADELFO Brooks Plan of Treatment No Information Available Functional Status Description No Information Available Mental Status Description No Information Available Referrals Description No Information Available
[2019-09-22 15:48] VITALS: BP 141/86
--- NOTE | 2019-09-22 16:00 | UC ---
UC General HPI - HPI Summary HPI Summary: 69 yo man with a 2 day history of malaise, sore throat which resolved, fatigue and aches, along with 2 episodes of loose non-bloody stool passage. No fever, no cough. He has had a flu shot this season. Has been eating chicken soup and fruits and veg today without any nausea or abdominal pain. - History of Current Complaint Chief Complaint: UCGI Stated Complaint: FLU LIKE SYMPTOMS Time Seen by Provider: 09/22/19 15:52 Hx Obtained From: Patient Onset/Duration: Gradual Onset, Lasting Days - 2 Timing: Constant Onset Severity: Mild Current Severity: Mild Pain Intensity: 0 Associated Signs & Symptoms: Positive: Diarrhea - Allergy/Home Medications Allergies/Adverse Reactions: Allergies Allergy/AdvReac Type Severity Reaction Status Date / Time mold Allergy Eyes Verified 09/22/19 15:49 Itchy/Swollen/Red/Watery NSAIDS (Non-Steroidal Allergy See Comment Verified 09/22/19 15:49 Anti-Inflamma simvastatin [From Zocor] Allergy Fatigue Verified 09/22/19 15:49 PMH/Surg Hx/FS Hx/Imm Hx Cardiovascular History: Hypertension Respiratory History: Asthma Neurological History: Other - history of stomach rupture/perforated ulcer? Other History Of: Hepatitis B Comment Only: Anticoagulant Therapy - 325 mg asa bedtime, 81mg asa am - Surgical History Surgical History: Yes Surgery Procedure, Year, and Place: Prostatectomy, 2000, [facility], Prostate CA. Deviated Spetum Repair. Lymph Node Removed from Left Neck. hiatal hernia. Hernia Repair AND MALCOM FUNDOPLICATION - 2005 stomach rupture with surgery 2014. SURGERY FOR PERFORATED STOMACH /ULCERATIVE- 2014. Lt THUMB - LACERATED FROM SAW - REATTACHED TENDON - Family History Known Family History: Positive: Cardiac Disease, Hypertension, Other - Brain CA - Social History Occupation: Retired Lives: Alone Alcohol Use: None Substance Use Type: None Smoking Status (MU): Never Smoked Tobacco Type: Cigarettes Have You Smoked in the Last Year: Yes - Immunization History Most Recent Influenza Vaccination: 2014 Most Recent Tetanus Shot: UNKNOWN Most Recent Pneumonia Vaccination: 2014 Review of Systems All Other Systems Reviewed And Are Negative: Yes Constitutional: Positive: Fatigue Skin: Positive: Negative Eyes: Positive: Negative ENT: Positive: Other - bilateral hearing loss Respiratory: Positive: Negative - hx of asthma, well controlled with daily Qvar , no recent albuterol use. Cardiovascular: Positive: Other - treated hypertension; home blood pressure today was 117 systolic by his report. Gastrointestinal: Positive: Diarrhea, Other - chronically poor appetite following abdominal surgery, but he eats regularly and well. Genitourinary: Positive: Negative Motor: Positive: Negative Neurovascular: Positive: Negative Musculoskeletal: Positive: Myalgia Neurological: Positive: Negative Psychological: Positive: Negative Is Patient Immunocompromised?: No Physical Exam Triage Information Reviewed: Yes Appearance: No Pain Distress, Ill-Appearing - looks mildly unwell, older than age. Vital Signs: Initial Vital Signs Temp 98.6 F 09/22/19 15:46 Pulse 56 09/22/19 15:46 Resp 12 09/22/19 15:46 BP 141/86 09/22/19 15:46 Pulse Ox 98 09/22/19 15:46 Eyes: Positive: Conjunctiva Clear ENT: Positive: Pharynx normal, TMs normal - ; some dry cerumen Dental Exam: Normal Neck: Positive: Supple, Nontender, No Lymphadenopathy Respiratory: Positive: Lungs clear, Normal breath sounds, No respiratory distress, No accessory muscle use Cardiovascular: Positive: RRR, No Murmur Abdomen Description: Positive: Nontender, No Organomegaly, Soft Musculoskeletal Exam: Normal Neurological: Positive: Alert, Muscle Tone Normal Psychological Exam: Normal Skin Exam: Normal Diagnostics - Laboratory Lab Results: Rapid strep negative. Course/Dx - Course Course Of Treatment: Symptomatic treatment of viral illness, clinical symptoms and exam suggest a mild enteritis. He is well hydrated and alert. - Differential Dx - Multi-Symptom Differential Diagnoses: Other - viral syndrome - Diagnoses Provider Diagnosis: Viral syndrome Discharge ED - Sign-Out/Discharge Documenting (check all that apply): Patient Departure All imaging exams completed and their final reports reviewed: No Studies - Discharge Plan Condition: Good Disposition: HOME Patient Education Materials: Viral Syndrome (ED) Referrals: Pascual oMyer MD [Primary Care Provider] - Additional Instructions: Your blood pressure is elevated to 141/86 today; continue your regular home readings and follow up with Dr. Moyer if you have elevated readings. Both influenza and rapid strep testing are negative. Continue eating well and a high intake of fluids, using acetaminophen for pain. Follow up if you develop any shortness of breath or have a persistent fever. - Billing Disposition and Condition Condition: GOOD Disposition: Home
[2019-09-22 16:15] LABS: Influenza A Molecular NEGATIVE (Negative); Influenza B Molecular NEGATIVE (Negative)
== END 2019-09-22 16:25 | disposition home or self-care (01) ==
LOC: UCEAST 15:10
DX: B34.9 Viral infection, unspecified (principal); R53.83 Other fatigue; R19.7 Diarrhea, unspecified; I10 Essential (primary) hypertension; J45.909 Unspecified asthma, uncomplicated; Z88.6 Allergy status to analgesic agent; Z88.8 Allergy status to other drugs, medicaments and biological substances; Z91.09 Other allergy status, other than to drugs and biological substances; Z79.82 Long term (current) use of aspirin; Z85.46 Personal history of malignant neoplasm of prostate
CPT/HCPCS: 87651; 99212; G0463

== ENCOUNTER 2019-12-07 20:41 | Inpatient (IN) | payer MEDICARE, OTHER ==
--- NOTE | 2019-12-07 20:44 | ED ---
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 Patient reports he previously had pain like this 5 years ago when his stomach burst with ulcers. Blood pressure noted to be 84/55 upon arrival to the ED. The patient rates the pain 10 /10 in severity. Symptoms aggravated by nothing. Symptoms alleviated by nothing. Patient denies fever. - History of Current Complaint Stated Complaint: ABD PAIN PER EMS Time Seen by Provider: 12/07/19 20:43 Hx Obtained From: Patient Onset/Duration: Sudden Onset, Lasting Hours - 1.5 hours, Still Present Timing: Constant, Lasting Hours - 1.5 hours ago Severity Initially: Severe Severity Currently: Severe Pain Intensity: 10 Pain Scale Used: 0-10 Numeric Aggravating Factor(s): Nothing Alleviating Factor(s): Nothing Associated Signs And Symptoms: Negative: Fever - Allergies/Home Medications Allergies/Adverse Reactions: Allergies Allergy/AdvReac Type Severity Reaction Status Date / Time mold Allergy Eyes Verified 09/22/19 15:49 Itchy/Swollen/Red/Watery NSAIDS (Non-Steroidal Allergy See Comment Verified 09/22/19 15:49 Anti-Inflamma simvastatin [From Zocor] Allergy Fatigue Verified 09/22/19 15:49 PMH/Surg Hx/FS Hx/Imm Hx Endocrine/Hematology History: Denies: Hx Diabetes, Hx Thyroid Disease Comment Only: Hx Anticoagulant Therapy - 325 mg asa bedtime, 81mg asa am Cardiovascular History: Reports: Hx Angina, Hx Hypercholesterolemia, Hx Hypertension Denies: Hx Coronary Artery Disease, Hx Myocardial Infarction, Hx Pacemaker/ ICD, Hx Valvular Heart Disease Respiratory History: Reports: Hx Asthma, Hx Pulmonary Embolism - Aug 2015, Hx Sleep Apnea, Other Respiratory Problems/Disorders - LT PLEURAL EFFUSION 07/2015/ TUBE PLACEMENT GI History: Reports: Hx Gastroesophageal Reflux Disease, Hx Gastrointestinal Bleed, Hx Hiatal Hernia History: Reports: Hx Renal Disease - CYST, RT KIDNEY, Other Problems/ Disorders - cyst right kidney, prostate CA Musculoskeletal History: Reports: Hx Arthritis Sensory History: Reports: Hx Contacts or Glasses, Hx Vision Problem - near sighted, Hx Hearing Aid - DOESN'T WEAR, Hx Hearing Problem, Other Sensory Impairments Opthamlomology History: Reports: Hx Contacts or Glasses, Hx Vision Problem - near sighted, Other Sensory Impairments Psychiatric History: Reports: Hx Anxiety Denies: Hx Panic Disorder, Hx Substance Abuse - Cancer History Cancer Type, Location and Year: PROSTATE Hx Chemotherapy: No Hx Radiation Therapy: No - Surgical History Surgery Procedure, Year, and Place: Prostatectomy, 2001, [facility], Prostate CA. Deviated Spetum Repair. Lymph Node Removed from Left Neck. hiatal hernia. Hernia Repair AND MALCOM FUNDOPLICATION - 2005 stomach rupture with surgery 2014. SURGERY FOR PERFORATED STOMACH /ULCERATIVE- 2014. Lt THUMB - LACERATED FROM SAW - REATTACHED TENDON Hx Anesthesia Reactions: No - Immunization History Date of Tetanus Vaccine: 2011 Date of Influenza Vaccine: 06/15 Infectious Disease History: Reports: Hx Hepatitis - Hepatitis A, Hx Shingles Denies: Hx Clostridium Difficile, Hx of Known/Suspected MRSA, Hx Tuberculosis - Family History Known Family History: Positive: Cardiac Disease, Hypertension, Other - Brain CA - Social History Alcohol Use: None Hx Substance Use: No Substance Use Type: Reports: None Hx Tobacco Use: No Smoking Status (MU): Never Smoked Tobacco Type: Cigarettes Have You Smoked in the Last Year: Yes Review of Systems Negative: Fever Positive: Abdominal Pain All Other Systems Reviewed And Are Negative: Yes Physical Exam - Summary Physical Exam Summary: Appearance: Elderly man lying in stretcher in obvious pain Skin: Warm, dry, no obvious rash Eyes: sclera anicteric, no conjunctival pallor ENT: mucous membranes moist, pharynx appears normal Neck: Supple, nontender Respiratory: Clear to auscultation, no signs of respiratory distress Cardiovascular: Normal S1, S2. No murmurs. Normal distal pulses in tibial and radial bilaterally. Abdomen: Unable to relax for reliable exam on initial exam. Musculoskeletal: Normal, Strength/ROM Intact Neurological: A&Ox3, awake and alert, mentation is normal, speech is fluent and appropriate Psychiatric: affect is normal, does not appear anxious or depressed Triage Information Reviewed: Yes Vital Signs On Initial Exam: Initial Vitals Temp Pulse Resp BP Pulse Ox 95 F 60 20 84/55 97 12/07/19 20:45 12/07/19 20:45 12/07/19 20:45 12/07/19 20:45 12/07/19 20:45 Vital Signs Reviewed: Yes Procedures - Sedation Patient Received Moderate/Deep Sedation with Procedure: No Diagnostics - Laboratory Result Diagrams: 12/08/19 02:36 12/08/19 02:36 Lab Statement: Any lab studies that have been ordered have been reviewed, and results considered in the medical decision making process. - Radiology CXR Radiology Interpretation Completed By: ED Physician Summary of Radiographic Findings: Large stomach bubble in the left upper abdomen , pending official radiology report. - CT A/P CT Interpretation Completed By: Radiologist Summary of CT Findings: 1. Evidence of a small-bowel obstruction with tapering transition in the left abdomen which is new since 09/24/2018. 2. Bibasilar interstitial prominence with fibro-atelectatic change, left greater than right and question of minimal patchy infiltrates. 3. Question of prior prostatectomy. 4. There appears to be some peripancreatic induration about the head and neck and to a lesser degree the body and tail which is confluent with the distended proximal duodenum and is consistent with pancreatitis, particularly involving the head. Dr. Rios has reviewed this radiology report. - EKG 2056 Cardiac Rate: Bradycardia - 59 BPM EKG Rhythm: Sinus Bradycardia Summary of EKG Findings: An EKG at 2056 revealed sinus bradycardia at 59 BPM, borderline T abnormalities in the inferior leads, no STEMI. Dr. Rios has reviewed and interpreted this EKG. Re-Evaluation - Re-Evaluation First Eval Re-Evaluation Time: 22:36 Comment: Discussed CT results with patient. Patient will be admitted to [facility] with dx of SBO. Patient understands and agrees with this plan. 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 Patient has a history of ulcer rupture 5 years ago. In the ED course, patient received morphine and fluids. CXR revealed: Large stomach bubble in the left upper abdomen, pending official radiology report. Blood work revealed Hgb 13.9, Hct 30 , MCH 32, potassium 3.4, carbon dioxide 21, creatinine 1.36, glucose 141, total protein 6.3, lactic acid 2.3, lipase 5077. An EKG at 2056 revealed sinus bradycardia at 59 BPM, borderline T abnormalities in the inferior leads, no STEMI. Dr. Rios has reviewed and interpreted this EKG. CT A/P revealed: 1. Evidence of a small-bowel obstruction with tapering transition in the left abdomen which is new since 09/24/2018. 2. Bibasilar interstitial prominence with fibro-atelectatic change, left greater than right and question of minimal patchy infiltrates. 3. Question of prior prostatectomy. 4. There appears to be some peripancreatic induration about the head and neck and to a lesser degree the body and tail which is confluent with the distended proximal duodenum and is consistent with pancreatitis, particularly involving the head. Discussed CT results with patient. Patient will be admitted to [facility] with dx of SBO. Patient understands and agrees with this plan. Discussed patient case with Dr. Sharon Leon, surgeon, who wants an NG-tube, agrees with hospital admission, and will see the patient in the morning. At 2241, discussed patient case with Dr. Sang Mendez, hospitalist, who accepted the patient for admission to [facility]. At 2246, Dr. Leon called back after having looked at the patient's CT. Patient's lipase result of 5077 had also just come back, and she thinks the CT might be positive for pancreatitis. Thus, at 2248, I conveyed this to Dr. Mendez. At 2255, discussed patient case with Dr. Francis, radiologist, who re-read the scan and agreed with pancreatitis. At 2304, conveyed this to Dr. Mendez. - Diagnoses Provider Diagnoses: SBO (small bowel obstruction), Pancreatitis - Provider Notifications Discussed Care Of Patient With: Sharon Leon Time Discussed With Above Provider: 22:39 Instructed by Provider To: Other - Discussed patient case with Dr. Leon, surgeon , who wants an NG-tube, agrees with hospital admission, and will see the patient in the morning. At 2241, discussed patient case with Dr. Mendez, hospitalist, who accepted the patient for admission to [facility]. At 2246, Dr. Leon called back after having looked at the patient's CT. Patient's lipase result of 5077 had also just come back, and she thinks the CT might be positive for pancreatitis. Thus, at 2248, I conveyed this to Dr. Mendez. At 2255, discussed patient case with Dr. Francis, radiologist, who re-read the scan and agrees with pancreatitis. - Critical Care Time Critical Care Time: 30-74 min Discharge ED - Sign-Out/Discharge Documenting (check all that apply): Patient Departure - Admit - Discharge Plan Condition: Critical Disposition: ADMITTED TO [facility] - Billing Disposition and Condition Condition: CRITICAL Disposition: Admitted to [facility] - Attestation Statements Document Initiated by Chrissie: Yes Documenting Scribe: Andrea Raines Provider For Whom Chrissie is Documenting (Include Credential): Elmer Rios MD Scriblaura Attestation: Andrea Zimmerman, scribed for Elmer Rios MD on 12/08/19 at 0642. Scribe Documentation Reviewed: Yes Provider Attestation: The documentation as recorded by the Andrea barbosa accurately reflects the service I personally performed and the decisions made by me, Elmer Rios MD Status of Scribe Document: Viewed
[2019-12-07] MEDS ORDERED: Morphine 4 MG/ML VIAL (1 ml) 4 MG/ML VIAL IV PRN (20:45)
[2019-12-07] MEDS ORDERED: Morphine 4 MG/ML VIAL (1 ml) 4 MG/ML VIAL IV ONE ×2 (20:45→21:09)
[2019-12-07] MEDS ORDERED: NS 0.9% 1000 ML** 2,000 ML IV ONE (20:45)
[2019-12-07 21:03] LABS: ABS Eosinophils 0.1 10^3/ul (0-0.6); ABS Monocytes 0.7 10^3/ul (0-0.8); Eosinophil % 0.9 %; Hematocrit 40 % (42-52); Hemoglobin 13.9 g/dL (14.0-18.0); Lymphocyte % 33.7 %; Mean Corpuscular HGB Conc 35 g/dL (31-36); Mean Corpuscular Hemoglobin 32 pg (27-31); Mean Corpuscular Volume 93 fL (80-94); Mean Platelet Volume 8.1 fL (7.4-10.4); Nucleated Red Blood Cells % 0.1; Platelet Count 240 10^3/uL (150-450); Red Blood Count 4.33 10^6 /uL (4.18-5.48); Red Cell Distribution Width 13 % (10-15); White Blood Count 8.8 10^3/uL (3.5-10.8)
[2019-12-07 21:20] LABS: Albumin/Globulin Ratio 1.7 (1-3); BUN/Creatinine Ratio 13.2 (8-20); Calcium 8.6 mg/dL (8.6-10.3); EGFR African American 62.5 (>60); EGFR Non-African American 51.7 (>60); Globulin 2.3 g/dL (2-4); Potassium 3.4 mmol/L (3.5-5.0); Total Bilirubin 0.4 mg/dL (0.2-1.0); Total Protein 6.3 g/dL (6.4-8.9)
[2019-12-07] MEDS ORDERED: Iodixanol* (CONTRAST) 320 MG/ML 100 ML SDV IV ONE (21:33)
--- OUTSIDE RECORDS SUMMARY | 2019-12-07 21:56 | XMS REPORT | Continuity of Care Document ---
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 01/16/20 Day. Rinse Mouth MD [facility] 18 80mcg/Act Aerosol After Use. Nasonex 2 intranasal puffs 34gm J30.1 Rosendoophkiara A. 11/29/19 50mcg/Act each nostril twice a MD [facility] 18 Suspension day Montelukast Sodium Take 1 Tablet By 90tabs J45.40 Samson A. 03/28/20 Mouth Once Daily In MD [facility] 17 10mg Tablets The Evening Levocetirizine take 1 tablet by 90tabs J30.89 Samson Koroma. 02/14/20 Dihydrochloride mouth once daily at MD [facility] 17 5mg bedtime Tablets Albuterol Sulfate inhale 3 milliliters 2boxes J98.01 Rosendoophkiara A. (2.5 mg) by MD [facility] 17 (2.5mg/3ML) 0.083% nebulization route Nebulizer q4 hours as needed. Aerochamber Plus Use aerochamber as 1units J45.40 Rosendoophkiara A. 01/03/20 directed with your MD [facility] 17 [facility] inhalers. Xopenex HFA inhale 2 puffs by 1inhaler J45.40 Christopher A. 02/15/20 45mcg/Act inhalation route MD [facility] [...] Available Vital Signs Date Vital Result Comment 11/08/2019 11:34am BP Systolic 148 mmHg BP Diastolic 84 mmHg Height 69 inches 5'9" Weight 176.00 lb BMI (Body Mass Index) 26.0 kg/m2 Heart Rate 73 /min Respiratory Rate 16 /min Body Temperature 98.6 F O2 % BldC Oximetry 97 % 08/07/2019 10:39am BP Systolic 124 mmHg BP Diastolic 70 mmHg Height 69 inches 5'9" Weight 176.50 lb BMI (Body Mass Index) 26.1 kg/m2 Heart Rate 71 /min Respiratory Rate 18 /min Body Temperature 98.3 F O2 % BldC Oximetry 95 % Results Test Acquired Date Facility Test Result H/L Range Note Order 06/17/2019 [facility] [employer] <pending> Procedures Date Code Description Status 08/07/2019 25762 Nitric Oxide Gas Determination Completed 08/07/2019 42597 Nitric Oxide Gas Determination Completed 08/07/2019 76024 Bronchodilation Responsiveness Spirometry Pre/Post Completed Bronchodil Adm 08/07/2019 36235 Bronchodilation Responsiveness Spirometry Pre/Post Completed Bronchodil Adm [...] 08/07/2019 J30.1 Allergic rhinitis due to pollen Samson Baez MD 08/07/2019 J30.1 Allergic rhinitis due to pollen ADELFO Brooks 08/07/2019 J30.89 Other allergic rhinitis Samson Baez MD 08/07/2019 J30.89 Other allergic rhinitis ADELFO Brooks 08/07/2019 J45.40 Moderate persistent asthma, uncomplicated Samson Baez MD 08/07/2019 J45.40 Moderate persistent asthma, uncomplicated ADELFO Brooks 08/07/2019 Z91.018 Allergy to other foods Samson Baez MD 08/07/2019 Z91.018 Allergy to other foods ADELFO [...] 07/04/2019 Z91.018 Allergy to other foods Samson aBez MD 07/04/2019 Z91.018 Allergy to other foods [...] Appointment(s):02/05/2020 2:00 pm - ADELFO Brooks at [place] Functional Status Description No Information Available Mental Status Description No Information Available Referrals Description No Information Available
--- OUTSIDE RECORDS SUMMARY | 2019-12-07 21:56 | XMS REPORT | Continuity of Care Document ---
:1950 External Reference #:[id number] Author Name Samson Baez MD Address [address] [place] [address] Care Team Providers Name Role Phone Pascual Moyer MD - Family Care Team Information International Accounting Manager [phone] Medicine Problems Active Problems Provider Date Uncomplicated [...] Onset: 2016 asthma Exacerbation of moderate persistent Rpicilla S. Fenstermacher, RPA-C Onset: 12/2016 asthma Allergic [...] Second Hand Smoke Exposure Smoking Status Reviewed: 11/08/19 No Second Hand Smoke Exposure Allergies, Adverse Reactions, Alerts Active Allergies Reaction Severity Comments Date Zocor 07/10/2013 Medications Active Medications SIG Qnty Indications Ordering Date Provider Mometasone Furoate instill 2 sprays 102grams J45.40 Rosendoophkiara A. into each nostril MD [facility] 20 50mcg/Act Suspension bid Qvar Redihaler Use 2 Puffs Twice A 31.8units Rosendoopher A. 01/16/20 Day. Rinse Mouth MD [facility] [...] Albuterol Sulfate inhale 3 milliliters 2boxes J98.01 [facility] (2.5 mg) by MD [facility] 17 (2.5mg/3ML) 0.083% nebulization route Nebulizer q4 hours as needed. Aerochamber Plus Use aerochamber as 1units J45.40 Rosendoopher A. 01/03/20 directed with your MD [facility] 17 [facility] inhalers. Xopenex HFA inhale 2 puffs by [...] Samson Alvarez into each nostril MD [facility] 00 50mcg/Act Suspension once daily Lorazepam 1 by mouth three Unknown 1mg Tablets times a day 00 Mirtazapine Unknown 15mg 00 Tablets Multivitamins Unknown 00 Capsules Nexium 1 by mouth twice a Unknown 40mg Capsules day [address] Lisinopril take 1 tablet (40 Unknown 40mg [...] Facility Test Result H/L Range Note Order 11/08/2019 [facility] <pending> PFT Supplies <pending> PFT With Bronchodilator <pending> Order 06/17/2019 [facility] [employer] <pending> Procedures Date Code Description Status 11/08/2019 97629 Nitric Oxide Gas Determination Completed 11/08/2019 81826 Bronchodilation Responsiveness Spirometry Pre/Post Completed Bronchodil Adm 08/07/2019 06865 Nitric Oxide Gas Determination Completed 08/07/2019 67487 Nitric Oxide Gas Determination Completed 08/07/2019 77544 Bronchodilation Responsiveness Spirometry Pre/Post Completed Bronchodil Adm 08/07/2019 34326 Bronchodilation Responsiveness Spirometry Pre/Post Completed Bronchodil Adm Medical Devices Description No Information Available Encounters Type Date Location Provider Dx Diagnosis Office Visit 11/08/2019 [place] Christopher A. J45.40 Moderate persistent 11:30a [facility] asthma, uncomplicated Office Visit 08/07/2019 ADELFO Montiel J30.1 Allergic rhinitis due 10:00a to pollen J30.89 Other allergic rhinitis J45.40 [...] other foods Assessments Date Code Description Provider 11/08/2019 J45.40 Moderate persistent asthma, uncomplicated Samson Baez MD 08/07/2019 J30.1 Allergic rhinitis [...] foods ADELFO Brooks Plan of Treatment Future Appointment(s):12/09/2019 10:30 am - GUSTAVO Britton at [facility]/05/2020 2:00 pm - ADELFO Brooks at [facility]/08/2019 - Samson Baez MDJ45.40 Moderate persistent asthma, uncomplicatedNew Medication: Mometasone Furoate 50 mcg/Act - instill 2 sprays into each nostril bid Functional Status Description No Information Available Mental Status Description No Information Available Referrals Description No Information Available
[2019-12-07] MEDS ORDERED: LORazepam INJ* 2 MG/ML 1 ML VIAL IV PUSH ONE (22:01)
[2019-12-07] MEDS ORDERED: Lorazepam PYXIS KEY PRN (22:01)
[2019-12-07] MEDS ORDERED: Lorazepam PYXIS KEY ONE (22:05)
[2019-12-07] MEDS ORDERED: HYDROmorphone INJ* 0.5 MG/0.5 ML SYRINGE IV ONE (23:29)
[2019-12-07] MEDS ORDERED: Ondansetron INJ* 2 MG/ML VIAL IV PRN (23:44)
[2019-12-07] MEDS ORDERED: NS 0.9% 1000 ML** 1,000 ML IV SCH (23:45)
[2019-12-08] MEDS ORDERED: Albuterol/Ipratropium NEB.SOL* Albuterol 2.5 MG/Ipratropium 0.5 MG 3 ML INH PRN (00:09)
[2019-12-08] MEDS ORDERED: Etomidate* 2 MG/ML 20 ML VIAL (40 MG) ONE (02:22)
[2019-12-08] MEDS ORDERED: Succinylcholine* 20 MG/ML 10 ML VIAL ONE (02:23)
[2019-12-08 02:41] LABS: Hematocrit 45 % (42-52); Mean Corpuscular HGB Conc 34 g/dL (31-36); Mean Corpuscular Hemoglobin 32 pg (27-31); Mean Corpuscular Volume 96 fL (80-94); Mean Platelet Volume 8.3 fL (7.4-10.4); Platelet Count 240 10^3/uL (150-450); Red Blood Count 4.66 10^6 /uL (4.18-5.48); Red Cell Distribution Width 13 % (10-15); White Blood Count 17.9 10^3/uL (3.5-10.8)
--- NOTE | 2019-12-08 02:52 | HP ---
CC: Dr. Pascual Moyer; Dr. Sharon Leon * ADMISSION HISTORY AND PHYSICAL: DATE OF ADMISSION: 12/07/19 CHIEF COMPLAINT: Abdominal pain. HISTORY OF PRESENT ILLNESS: This is a 69-year-old gentleman with a past medical history of hypertension; pulmonary embolism in 2015, no longer on any anticoagulation; gastroesophageal reflux disease; obstructive sleep apnea, on CPAP, history of prostate cancer, history of gastric ulcer, status post perforation with sew-over Akil fundoplication, previous history of acute pancreatitis during the episode of abdominal perforation, comes in with sudden onset of abdominal pain, which started 2 hours ago. The patient during my evaluation was constantly screaming in pain, so could not give any history, rest of the history was obtained by reviewing ER records. I tried giving the patient multiple pain medications to see if I could reinitiated any history, but he was constantly in pain, so his pain medications were continuously increased. He was given total of 12 mg of IV morphine and I have scheduled another 1 mg of Dilaudid as well. He denied any vomiting, just constantly saying that his abdomen feels like it is going to explode and it is similar in nature to the previous episode that he sustained in 2015 for which he required surgical intervention. PAST MEDICAL HISTORY: As mentioned hypertension; asthma; pulmonary embolism in 2015, which was postoperative after his abdominal surgery; gastroesophageal reflux disease; obstructive sleep apnea, on CPAP; history of prostate cancer; gastric ulcer, status post perforation; depression. PAST SURGICAL HISTORY: Includes exploratory laparotomy for gastric ulcer perforation with sew-over Akil fundoplication, prostatectomy, and left inguinal hernia repair. HOME MEDICATIONS: The patient is currently on: 1. Nasonex spray both nares daily. 2. Xyzal 5 mg. 3. Qvar 2 puffs via inhalation p.o. b.i.d. 4. Singulair 10 mg p.o. daily. 5. Levalbuterol 2 puffs by inhalation q.4 hours. 6. Albuterol via inhalation q.4 hours p.r.n. 7. Lisinopril 40 mg oral daily. 8. Mirtazapine 15 mg oral daily at bedtime. 9. Ativan 1 mg p.o. b.i.d. 10. Dexlansoprazole 60 mg oral daily. ALLERGIES: The patient is allergic to MOLD, which causes itchy, swollen, red, watery eyes; NSAIDs due to his abdominal surgery, and SIMVASTATIN causes fatigue. FAMILY HISTORY: Notable for half-sister who had a stroke and from this and father who had an HI at age 72 and at age 80 due to his second massive HI. Mother of brain cancer. 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 . He has no children. Never smoked. No alcohol or drug use. REVIEW OF SYSTEMS: Unable to obtain due to the patient's constant agitation and later after giving 1 mg of Dilaudid, he was much more comfortable, but now was more sedated. PHYSICAL EXAMINATION GENERAL: The patient was initially screaming in pain, but later was sedated with pain medications. The patient is awake, alert, who is noted to be in severe pain. VITAL SIGNS: Temperature 96.9, BP was noted to be initially low at 84/55, but later improved to 152/96, heart rate 72, respiration rate 20, saturating 95% on room air. HEAD AND NECK: Atraumatic and normocephalic. Bilateral pupils were reactive. Oral mucosa was dry. NECK: Supple. No jugular venous distention. LUNGS: Clear to auscultation bilaterally. No wheezing, rhonchi, or rales. HEART: S1 and S2. Regular rate and rhythm. ABDOMEN: Severely tender diffusely in abdomen. Abdominal guarding noted. EXTREMITIES: No cyanosis, clubbing, or edema. DIAGNOSTIC STUDIES/LABORATORY DATA: CBC was unremarkable. Comprehensive metabolic panel shows low potassium at 3.4, bicarb decreased at 21, lactic acid elevated at 2.3, creatinine elevated at 1.36. Lipase elevated at 5077. CT abdomen and pelvis was read as evidence of small bowel obstruction with tapering transition in the left abdomen, which is new since 2018, question of prior prostatectomy and showing that there is peripancreatic induration about the head and neck of the pancreas until less likely to body and tail with distended proximal duodenum and is consistent with pancreatitis particularly involving the head. IMPRESSION: This is a 69-year-old gentleman with multiple abdominal surgeries, comes in with severe abdominal pain likely secondary to pancreatitis, unclear etiology and a component of small bowel obstruction. ASSESSMENT AND PLAN: 1. Severe abdominal pain, multifactorial from small bowel obstruction versus pancreatitis. Multiple attempts were made for nasogastric tube placement, but all failed. I suspect this is due to his previous history of Akil fundoplication and multiple previous abdominal surgeries. I discussed the case with Dr. Leon, the surgeon, who suggested that the patient's symptoms might be more related to pancreatitis rather than a small bowel obstruction; however, she will evaluate the patient in the morning. In the meantime, we will start the patient on analgesics and antiemetic p.r.n. and continue with IV hydration. We will hold his BP medications for now and keep the patient n.p.o. and we will consider a GI consultation in the morning if the patient's symptoms do not improve. I will also check a fasting lipid profile to rule out any triglyceridemia causing the patient's pancreatitis, however, his last triglyceride from 2014 was noted to be well within normal limits at 77. 2. History of asthma. I will start the patient on DuoNeb as needed. 3. History of hypertension. We will hold BP medications as mentioned. 4. History of gastroesophageal reflux disease. We will start the patient on IV Protonix until okay to advance diet. 5. DVT prophylaxis: Risk is high given history of previous DVT, however, given small bowel obstruction and pancreatitis and possibility of surgery, we will only start the patient on sequential compression device for now. 6. Code status: Per previous records this patient is full code. [id number]/[facility] #: [id number] [facility]
[2019-12-08 02:57] LABS: Albumin 4.2 g/dL (3.2-5.2); Albumin/Globulin Ratio 1.6 (1-3); BUN/Creatinine Ratio 10.3 (8-20); Calcium 8.6 mg/dL (8.6-10.3); EGFR African American 44.1 (>60); EGFR Non-African American 36.4 (>60); Globulin 2.6 g/dL (2-4); Total Bilirubin 0.4 mg/dL (0.2-1.0); Total Protein 6.8 g/dL (6.4-8.9)
[2019-12-08] MEDS ORDERED: Norepinephrine 16MCG/ML IVPRE* 4,000 MCG/250 ML BAG IV SCH (03:00)
[2019-12-08] MEDS ORDERED: Propofol* 100 ML IV SCH (03:00)
[2019-12-08] MEDS ORDERED: Piperacillin/Tazobac ADVAN(*) 3.375 GM in NS 0.9% 100 ML* 100 ML IVPB ONE (03:00)
[2019-12-08] MEDS ORDERED: Zosyn per Pharmacy* NOTE FOLLOW UP SCH (03:00)
[2019-12-08 03:03] LABS: ABS Basophils 0.1 10^3/ul (0-0.2); ABS Lymphocytes 1.5 10^3/ul (1.0-4.8); ABS Monocytes 0.6 10^3/ul (0-0.8); ABS Neutrophils 15.6 10^3/ul (1.5-7.7); Eosinophil % 0.1 %; Lymphocyte % 8.4 %; Nucleated Red Blood Cells % 0.1
[2019-12-08 03:19] LABS: Urine Appearance Cloudy; Urine Bilirubin Negative (Negative); Urine Blood Negative (Negative); Urine Color Yellow; Urine Glucose Negative (Negative); Urine Ketones Negative (Negative); Urine Nitrite Negative (Negative); Urine Protein Negative (Negative); Urine Specific Gravity 1.054 (1.010-1.030); Urine Urobilinogen Negative (Negative)
--- NOTE | 2019-12-08 03:24 | ED ---
Progress - Progress Note Progress Note: This patient is a 69 y/o M who was admitted to the hospital services from the ED with dx of SBO. While in the surgical unit, patient desaturated and was transferred to the ICU. I was asked by Dr. Mendez, hospitalist, to intubate the patient. Patient was given etomidate at 0222. Patient was given 100mg of succinate at 0223. Intubation attempt at 0223. Tube was 26 at the lip at 0224. Symmetric breath sounds heard, intubation successful. Post-intubation XR ordered, read by ICU physician. Course/Dx - Course Course Of Treatment: This patient is a 69 y/o M who was admitted to the [facility] services from the ED with dx of SBO. While in the surgical unit, patient desaturated and was transferred to the ICU. I was asked by Dr. Mendez, hospitalist, to intubate the patient. Patient was given etomidate at 0222. Patient was given 100mg of succinate at 0223. Intubation attempt at 0223. Tube was 26 at the lip at 0224. Symmetric breath sounds heard, intubation successful. Post-intubation XR ordered, read by ICU physician. - Diagnoses Provider Diagnoses: SBO (small bowel obstruction), Pancreatitis Discharge ED - Sign-Out/Discharge Documenting (check all that apply): Patient Departure - Admit - Discharge Plan Condition: Critical Disposition: ADMITTED TO [facility] - Billing Disposition and Condition Condition: CRITICAL Disposition: Admitted to [facility] - Attestation Statements Document Initiated by Chrissie: Yes Documenting Scribe: Andrea Raines Provider For Whom Chrissie is Documenting (Include Credential): Elmer Rios MD Scribe Attestation: IAndrea, scribed for Elmer Rios MD on 12/09/19 at 0059. Scribe Documentation Reviewed: Yes Provider Attestation: The documentation as recorded by the Andrea barbosa accurately reflects the service I personally performed and the decisions made by , Elmer Rios MD Status of Scribe Document: Viewed Procedures - Sedation Patient Received Moderate/Deep Sedation with Procedure: No - Intubation Time of Intubation: 02:24 Intubation Method: orotracheal Tube Size (cm): 8.0 Medications: Succinylcholine Breath Sounds after Intubation: equal Intubation Complications: no complications Post Intubation Xray: Yes Progress/Xray Impression: Read by ICU physician
[2019-12-08 03:33] VITALS: BP 96/71
--- NOTE | 2019-12-08 04:38 | PN ---
Hospitalist Progress Note Date of Service: 12/08/19 Patient decompensation after admission was done. At which point was noted to have subcutaneous emphysema. I spent over 90 minutes of critical care time coordinating care of the patient including calling surgeon to obtain their recommendation. Speaking to radiologist regarding CT findings. And discussing case with ER physician to intubate the patient and repeat labs and adjust medication. And discussing all case related findings with [facility] thoracic surgeon.
[2019-12-08] MEDS ORDERED: Pantoprazole IV* 40 MG IV SCH (09:00)
--- NOTE | 2019-12-08 09:15 | TRS ---
CC: Dr. Pascual Moyer * TRANSFER SUMMARY: DATE OF ADMISSION: 12/07/19 DATE OF TRANSFER: To [facility], 12/08/19. PRIMARY CARE PHYSICIAN: Dr. Pascual Moyer. DIAGNOSES: 1. Small bowel obstruction. 2. Pancreatitis. 3. Perforated viscus. 4. Ventilator dependent respiratory failure. 5. Septic shock secondary to perforated viscus. PROCEDURE: Intubation. DIAGNOSTIC STUDIES: The patient has had initial CT scan in the ER which showed presence of duodenitis, small bowel obstruction, and pancreatitis. A repeat scan performed within [address] scan showed persistent prominent distention of the stomach with gas, fluid, and food, similar to the previous CT scan. Small bowel distension persists suggestive of small bowel obstruction. Prominent extraluminal gas since prior study, includes subcutaneous emphysema and pneumomediastinum with some subpleural gas. There is prominent retroperitoneal and extraperitoneal gas particularly in the upper abdomen with extension into pelvis and some mesenteric gas of uncertain source. Portal venous gas, which may be reflection of pneumatosis noted in the duodenal sweep in that the duodenum is retroperitoneum where much of the extraperitoneal gas is located and induration noted about the proximal duodenum and pancreatic head. Findings may reflect a site of perforation in this area. Minimal free intraperitoneal air noted anterior to the liver, but by volume is relatively minor compared to the amount of extraperitoneal air. CT chest showed prominent subcutaneous emphysema about the upper abdomen, chest, and neck with prominent pneumomediastinum. Within the abdomen, there is prominent gas within the mesentery and retroperitoneum with small amount of free air anterior to the left lobe of the liver. There is pneumatosis of the duodenum sweep and portal venous gas. There is persistent distention of the stomach, and although findings may reflect a Boerhaave tear, the amount of retroperitoneal and mesenteric gas and duodenal pneumatosis may reflect a retroperitoneal perforation of the duodenum. Earlier induration around the proximal duodenum may be reflection of duodenal ulceration or pancreatitis. LABORATORY DATA: Initial labs show normal white count, hemoglobin and hematocrit showed mild anemia with platelet count of 240. Subsequent labs show elevated white count of 17.9, hemoglobin and hematocrit normal, platelet count normal. Blood gasses showing pH of 7.05 with elevated pCO2. Chemistry showed worsening renal function. Lipase elevated at 5077. Urinalysis shows cloudy urine, but negative for any leuk esterase or nitrite. HOSPITAL COURSE: This is a 69-year-old gentleman with previous history of gastric ulcer perforation and pancreatitis in 2015, comes in with similar complaints with severe abdominal pain, but no vomiting and was constantly crying in pain in the emergency room, and was noted to have the above findings on the initial CAT scan including pancreatitis and duodenitis. Attempts were made to put an NG tube in to decompress the bowel, but they failed. I discussed the case at that time with the surgeon who suggested that she reviewed the CAT scan and suspects the patient's symptoms may be more related to pancreatitis rather than small bowel obstruction and is okay with there being no NG tube for decompression as multiple attempts did fail in the emergency room. Within the hour of admission, the patient decompensated, became very tachycardic, tachypneic, and hypoxic en route to the surgical short- stay unit where the patient was being admitted, so I was called to reevaluate the patient. During my reevaluation, the patient was noted to have subcutaneous emphysema with crepitus all over the left lateral chest wall, and given the patient's failed NG tube insertion, I suspected esophageal tear as a possibility. So after confirming with the portable chest x-rays that the patient does have subcutaneous air, we performed CT chest, abdomen, and pelvis and I also called the surgeon Dr. Leon back to evaluate the patient as the patient may need surgical intervention. Dr. Leon suggested that if this was esophageal perforation and if there is free air within the chest wall, she recommended the patient to be evaluated by a cardiothoracic surgeon rather than herself and the patient needs to be transferred as we do not have any cardiothoracic surgeon at this facility. The patient at this point was also noted to be hypotensive and I requested the surgeon to see if she would be able to put a central line in; however, she recommended to request the ER physician for the central line procedure. While the CAT scans were being read and performed, a quick evaluation of the CAT scan clearly revealed air all over the intrathoracic cavity as well as intraabdominal cavity, so [facility] was called immediately and I spoke with the thoracic surgeon, Dr. Vladislav Rock regarding the case, who accepted the patient to their ICU. During this time, the patient was getting severely hypoxic, so I did discuss with ER physician who was able to intubate the patient. While I also requested a central line placement for his hypotension, the ER physician was unable to come back up for the central line procedure as there were other critical patients in the emergency room. I discussed the case again with Radiology with my initial thought being this would be an esophageal perforation; however, the radiologist suspected that even though a Boerhaave is a possibility, in this particular case the CAT scan does not appear to be a normal Boerhaave type CAT scan, but rather perforation of the indurated area in the duodenum, which was initially seen in the CAT scan of the abdomen and pelvis as the main source of the perforation with some persistent obstruction. The surgeon from [facility] [place] also called back after reviewing the images that were uploaded to their system and requested decompression of the bowel; however, I suggested that after multiple attempts we were unable to get an NG or an OG in and requested that this decompression be done surgically once the patient arrives to [facility]. The patient was attempted to be started on Levophed peripherally along with Zosyn. By this time, the transfer team arrived and the patient was subsequently transferred to [facility]. Rest of the care and medications and disposition would be based on the accepting physician at [facility]. Given that the patient was much more altered and there was initially no family member reachable, I made the decision that the patient should be transferred as a medical emergency to the [facility]; however, I finally was able to speak with Rigoberto Gallegos who is listed as his cousin and primary healthcare proxy based on records from 2014. I had updated him of the patient's condition and notified him that he is being transferred already to [facility] for higher level of care. [id number]/[facility] #: [id number] [facility]
== END 2019-12-08 08:50 | disposition short-term general hospital (02) | DRG 380 ==
LOC: ED 20:41 → SSU 23:44 → ICU 12-08 03:00
PROVIDERS: ADMIT Internal Medicine; ATTEND Internal Medicine
PROC: 0BH17EZ Insertion of Endotracheal Airway into Trachea, Via Natural or Artificial Opening (ICD-10-PCS; principal; 2019-12-08)
PROC: 5A1935Z Respiratory Ventilation, Less than 24 Consecutive Hours (ICD-10-PCS; 2019-12-08)
DX: K26.1 Acute duodenal ulcer with perforation (principal); A41.9 Sepsis, unspecified organism; K85.90 Acute pancreatitis without necrosis or infection, unspecified; R65.21 Severe sepsis with septic shock; J96.01 Acute respiratory failure with hypoxia; K56.609 Unspecified intestinal obstruction, unspecified as to partial versus complete obstruction; J98.2 Interstitial emphysema; K63.89 Other specified diseases of intestine; I95.9 Hypotension, unspecified; I10 Essential (primary) hypertension; K21.9 Gastro-esophageal reflux disease without esophagitis; G47.33 Obstructive sleep apnea (adult) (pediatric); J45.909 Unspecified asthma, uncomplicated; Z86.711 Personal history of pulmonary embolism; Z85.46 Personal history of malignant neoplasm of prostate; Z87.11 Personal history of peptic ulcer disease; Z79.51 Long term (current) use of inhaled steroids; Z79.899 Other long term (current) drug therapy; Z88.8 Allergy status to other drugs, medicaments and biological substances; Z91.048 Other nonmedicinal substance allergy status; Z82.3 Family history of stroke; Z82.49 Family history of ischemic heart disease and other diseases of the circulatory system; Z80.8 Family history of malignant neoplasm of other organs or systems
CPT/HCPCS: 36415; 36600; 71045; 71250; 74018; 74176; 74177; 80053; 81003; 82803; 83605; 83690; 84484; 85025; 93005; 94002; 96375; 96376; 99285; J0330; J1170; J2060; J2270; J2543; Q9967